=== PATIENT | female | born 1960 | race Caucasian/White ===

== ENCOUNTER 2016-12-20 15:17 | Emergency (ER) | payer OTHER ==
[2016-12-20 15:35] VITALS: BP 128/61; PULSE 70; RESP 17; TEMP 97.8
[2016-12-20] MEDS ORDERED: MUPIROCIN CALCIUM 2% CREAM 15 GM TUBE TOPICAL SCH (16:30)
[2016-12-20] MEDS ORDERED: MUPIROCIN CALCIUM 2% CREAM 15 GM TUBE TOPICAL STA (16:33)
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
== END 2016-12-20 16:55 | disposition home or self-care (01) ==
LOC: EC 15:17
DX: T54.91XA Toxic effect of unspecified corrosive substance, accidental (unintentional), initial encounter (principal); T23.621A Corrosion of second degree of single right finger (nail) except thumb, initial encounter; Z79.890 Hormone replacement therapy; F41.9 Anxiety disorder, unspecified; F17.200 Nicotine dependence, unspecified, uncomplicated
CPT/HCPCS: 16020; 99283

== ENCOUNTER 2025-01-14 03:30 | Inpatient (IN) | payer OTHER ==
--- NOTE | 2025-01-14 04:23 | ED ---
SOB HPI - General Chief Complaint: Shortness of Breath Stated Complaint: Shortness of breath Time Seen by Provider: 01/14/25 03:36 Source: patient, EMS Mode of arrival: EMS - History of Present Illness Initial Comments: This patient is a 64-year-old woman who states that she has been having worsening shortness of breath over the course the last night into this morning. She states that she does have history of lung disease but is not able to state exactly what it is. She does use inhalers at home but states she is not on oxygen. The patient has not noted fever or chills. No chest pain. She states the cough is starting to bring up a little bit of whitish sputum. No change in urination or bowel movements. No leg swelling MD Complaint: shortness of breath, cough Onset/Timin -: days(s) Consistency: constant Improves With: nothing Worsens With: nothing Known History Of: COPD Associated Symptoms: cough, sputum production Treatments Prior to Arrival: none - Related Data Home Oxygen Therapy: No Home Medications Medication Instructions Recorded Confirmed Albuterol Sulfate [Albuterol 2 puff INHALATION RT-Q4H PRN 01/14/25 01/14/25 Sulfate Hfa] Cyanocobalamin [Vitamin B-12] 500 mcg PO DAILY 01/14/25 01/14/25 Glycopyrrolate/Formoterol Fum 2 puff INHALATION RT-BID 01/14/25 01/14/25 [Bevespi Aerosphere Inhaler] Sertraline [Zoloft] 50 mg PO DAILY 01/14/25 01/14/25 methocarbamoL [Robaxin-750] 750 mg PO TID PRN 01/14/25 01/14/25 Gabapentin [Neurontin] 300 mg PO TID 01/17/25 01/17/25 Previous Rx's Medication Instructions Recorded Amiodarone [Cordarone] 200 mg PO DAILY #30 tab 01/21/25 Apixaban [Eliquis] 5 mg PO BID #60 tab 01/21/25 Dapagliflozin Propanediol [Farxiga] 10 mg PO DAILY #30 tab 01/21/25 Metoprolol Tartrate [Lopressor] 25 mg PO BID #60 tab 01/21/25 Nicotine 14Mg/24Hr Patch [Habitrol] 1 patch TRANSDERM DAILY #7 patch 01/21/25 Pantoprazole [Protonix] 40 mg PO DAILY #30 tab 01/21/25 Allergies Allergy/AdvReac Type Severity Reaction Status Date / Time shellfish derived [Shrimp] Allergy Unknown Verified 01/14/25 09:35 Review of Systems ROS Statement: Those systems with pertinent positive or pertinent negative responses have been documented in the HPI. ROS Other: All systems not noted in ROS Statement are negative. Constitutional: Denies: fever, chills Respiratory: Reports: cough, dyspnea, wheezes Cardiovascular: Denies: chest pain, palpitations, edema, syncope Gastrointestinal: Denies: abdominal pain, nausea, vomiting, diarrhea Genitourinary: Denies: dysuria, hematuria Musculoskeletal: Denies: back pain Skin: Denies: rash Neurological: Denies: headache, weakness Past Medical History Past Medical History: Asthma, COPD, GERD/Reflux Additional Past Medical History / Comment(s): ABD PAIN, DIARRHEA. History of Any Multi-Drug Resistant Organisms: None Reported Past Surgical History: Tubal Ligation Additional Past Surgical History / Comment(s): RUPTURED OVARIAN CYST Past Psychological History: Anxiety Past Alcohol Use History: Occasional Past Drug Use History: None Reported General Exam General appearance: alert, in no apparent distress Head exam: Present: atraumatic, normocephalic Eye exam: Present: normal appearance. Absent: scleral icterus, conjunctival injection ENT exam: Present: normal oropharynx Neck exam: Present: normal inspection Respiratory exam: Present: wheezes, decreased breath sounds. Absent: rales, rhonchi, stridor, chest wall tenderness, accessory muscle use Cardiovascular Exam: Present: normal rhythm, tachycardia, normal heart sounds. Absent: systolic murmur, diastolic murmur, rubs, gallop GI/Abdominal exam: Present: soft. Absent: distended, tenderness, guarding, rebound, rigid, mass Extremities exam: Present: normal inspection, normal capillary refill. Absent: pedal edema, calf tenderness Back exam: Present: normal inspection Neurological exam: Present: alert Skin exam: Present: warm, dry, intact, normal color. Absent: rash Course Vital Signs 01/14/25 01/14/25 01/14/25 03:32 05:08 05:35 Temperature 98.1 F Pulse Rate 105 H 103 H 97 Respiratory 24 24 Rate Blood Pressure 153/113 139/101 O2 Sat by Pulse 92 L 92 L Oximetry Fraction of Inspired Oxygen (FIO2) 01/14/25 01/14/25 01/14/25 05:49 06:30 07:31 Temperature Pulse Rate 108 H 115 H 121 H Respiratory 20 21 Rate Blood Pressure 137/86 138/103 O2 Sat by Pulse 91 L 98 Oximetry Fraction of Inspired Oxygen (FIO2) 01/14/25 01/14/25 01/14/25 07:41 07:44 08:52 Temperature Pulse Rate 101 H Respiratory 20 Rate Blood Pressure 108/68 O2 Sat by Pulse 98 Oximetry Fraction of 50 50 Inspired Oxygen (FIO2) 01/14/25 01/14/25 01/14/25 09:03 10:11 10:46 Temperature Pulse Rate 90 91 84 Respiratory 20 22 Rate Blood Pressure 119/77 123/92 O2 Sat by Pulse 96 96 Oximetry Fraction of 50 Inspired Oxygen (FIO2) 01/14/25 01/14/25 01/14/25 11:06 11:17 11:47 Temperature Pulse Rate 84 92 91 Respiratory 21 20 Rate Blood Pressure 115/96 109/84 O2 Sat by Pulse 96 96 Oximetry Fraction of Inspired Oxygen (FIO2) 01/14/25 01/14/25 01/14/25 12:00 13:16 14:02 Temperature 98.1 F Pulse Rate 84 92 93 Respiratory 18 15 18 Rate Blood Pressure 113/70 127/94 103/84 O2 Sat by Pulse 96 98 97 Oximetry Fraction of Inspired Oxygen (FIO2) 01/14/25 01/14/25 01/14/25 14:30 14:40 14:59 Temperature Pulse Rate 91 89 229 H Respiratory Rate Blood Pressure O2 Sat by Pulse Oximetry Fraction of 35 Inspired Oxygen (FIO2) 01/14/25 01/14/25 01/14/25 15:02 15:18 15:36 Temperature Pulse Rate 80 89 91 Respiratory 18 18 18 Rate Blood Pressure 114/77 110/81 119/83 O2 Sat by Pulse 98 97 98 Oximetry Fraction of Inspired Oxygen (FIO2) 01/14/25 01/14/25 01/14/25 16:08 17:00 17:02 Temperature 98.1 F Pulse Rate 89 225 H 101 H Respiratory 22 18 18 Rate Blood Pressure 132/87 132/58 132/58 O2 Sat by Pulse 96 96 Oximetry Fraction of Inspired Oxygen (FIO2) 01/14/25 01/14/25 17:15 17:52 Temperature Pulse Rate 91 Respiratory 20 Rate Blood Pressure 120/73 O2 Sat by Pulse 94 L 94 L Oximetry Fraction of Inspired Oxygen (FIO2) Medical Decision Making - Medical Decision Making Patient is a 64-year-old woman here with dyspnea. There does appear to be multifactorial etiology. The patient did become acutely more dyspneic, more hypertensive, diaphoretic and tachycardic. Respiratory therapist was called to place patient on BiPAP and I pushed some rounds of nitroglycerin as bolus while following patient's blood pressure. In response to treatment, the patient had resolution of the diaphoresis and tachycardia. The patient's hypertension improved. Case discussed with admitting physician. The patient had chest x-ray that I interpreted as showing cardiomegaly with some congestion. There is pleural effusion versus possible infiltrate. Was pt. sent in by a medical professional or institution (ELLI Rasmussen, FRAME SAMPLE AND PATTERN SUPERVISOR, urgent care, hospital, or senior care...) When possible be specific @ -[No] Did you speak to anyone other than the patient for history (EMS, parent, family, police, friend...)? What history was obtained from this source @ -[No] Did you review nursing and triage notes (agree or disagree)? Why? @ -[I reviewed and agree with nursing and triage notes] Were old charts reviewed (outside hosp., previous admission, EMS record, old EKG, old radiological studies, urgent care reports/EKG's, senior care records)? Report findings @ -[No old charts were reviewed] Differential Diagnosis (chest pain, altered mental status, abdominal pain women, abdominal pain men, vaginal bleeding, weakness, fever, dyspnea, syncope, headache, dizziness, GI bleed, back pain, seizure, CVA, palpatations, mental health, musculoskeletal)? @ -[Differential Dyspnea: Coronary syndrome, arrhythmia, tamponade, asthma, COPD, pulmonary embolism, pneumonia, pneumothorax, pulmonary effusion, anaphylaxis, diabetic ketoacidosis, flailed chest, pulmonary contusion, diaphragmatic rupture, anemia, neuromuscular, this is not meant to be an all-inclusive list. EKG interpreted by me (3pts min.). @ -[I interpreted as above] X-rays interpreted by me (1pt min.). @ -I interpreted as above CT interpreted by me (1pt min.). @ -[None done] U/S interpreted by me (1pt. min.). @ -[None done] What testing was considered but not performed or refused? (CT, X-rays, U/S, labs)? Why? @ -[None] What meds were considered but not given or refused? Why? @ -[None] Did you discuss the management of the patient with other professionals (professionals i.e. , PA, FRAME S[employer] AND PATTERN SUPERVISOR, lab, RT, psych nurse, social insurance administrator, tree marker, teacher, senior compliance officer, shoe caser)? Give summary @ -[Case discussed with admitting physician and treatment recommendations incorporated Was smoking cessation discussed for >3mins.? @ -[No] Was critical care preformed (if so, how long)? @ -[Yes, 35 minutes Were there social determinants of health that impacted care today? How? (Homelessness, low income, unemployed, alcoholism, drug addiction, transportation, low edu. Level, literacy, decrease access to med. care, senior care, rehab)? @ -[No] Was there de-escalation of care discussed even if they declined (Discuss DNR or withdrawal of care, Hospice)? DNR status @ -[No] What co-morbidities impacted this encounter? (DM, HTN, Smoking, COPD, CAD, Cancer, CVA, ARF, Chemo, Hep., AIDS, mental health diagnosis, sleep apnea, morbid obesity)? @ -[None] Was patient admitted / discharged? Hospital course, mention meds given and route, prescriptions, significant lab abnormalities, going to OR and other pertinent info. @ -[See the above note Undiagnosed new problem with uncertain prognosis? @ -[No] Drug Therapy requiring intensive monitoring for toxicity (Heparin, Nitro, Insulin, Cardizem)? @ -[IV nitroglycerin Were any procedures done? @ -[No] Diagnosis/symptom? @ -[d acute dyspnea Exacerbation of congestive heart failure Possible pneumonia Acute, or Chronic, or Acute on Chronic? @ -[Acute Uncomplicated (without systemic symptoms) or Complicated (systemic symptoms)? @ -[Complicated by dyspnea Side effects of treatment? @ -[No] Exacerbation, Progression, or Severe Exacerbation? @ -[No] Poses a threat to life or bodily function? How? (Chest pain, [place], [place], pneumonia, PE, COPD, DKA, ARF, appy, cholecystitis, CVA, Diverticulitis, Homicidal, Suicidal, threat to staff... and all critical care pts) @ -[No] All treatments are based on ideal body weight as in ED triage - Lab Data Result diagrams: 01/19/25 07:29 01/21/25 07:51 Lab Results 01/14/25 01/14/25 01/14/25 Range/Units 03:35 03:35 03:35 WBC 10.1 (3.8-10.6) k/uL RBC 3.57 L (3.80-5.40) m/uL Hgb 13.1 (11.4-16.0) gm/dL Hct 42.1 (34.0-46.0) % MCV 117.8 H (80.0-100.0) fL MCH 36.6 H (25.0-35.0) pg MCHC 31.0 (31.0-37.0) g/dL RDW 18.0 H (11.5-15.5) % Plt Count 210 (150-450) k/uL MPV 9.3 Neutrophils % 81 % Lymphocytes % 11 % Monocytes % 6 % Eosinophils % 1 % Basophils % 0 % Neutrophils # 8.2 H (1.3-7.7) k/uL Lymphocytes # 1.1 (1.0-4.8) k/uL Monocytes # 0.6 (0-1.0) k/uL Eosinophils # 0.1 (0-0.7) k/uL Basophils # 0.0 (0-0.2) k/uL Hypochromasia Marked Anisocytosis Slight Macrocytosis Marked A PT 11.3 (10.0-12.5) sec INR 1.0 (<1.2) APTT 21.5 L (22.0-30.0) sec Sodium 138 (137-145) mmol/L Potassium 3.5 (3.5-5.1) mmol/L Chloride 106 (98-107) mmol/L Carbon Dioxide 21 L (22-30) mmol/L Anion Gap 11 mmol/L BUN 9 (7-17) mg/dL Creatinine 0.58 (0.52-1.04) mg/dL Est GFR (CKD-EPI)AfAm >90 (>60 ml/min/1.73 sqM) Est GFR (CKD-EPI)NonAf >90 (>60 ml/min/1.73 sqM) Glucose 126 H (74-99) mg/dL Plasma Lactic Acid Lalito (0.7-2.0) mmol/L Calcium 8.9 (8.4-10.2) mg/dL Total Bilirubin 0.9 (0.2-1.3) mg/dL AST 87 H (14-36) U/L ALT 53 H (4-34) U/L Alkaline Phosphatase 240 H (38-126) U/L Troponin I (0.000-0.034) ng/mL NT-Pro-B Natriuret Pep 2600 pg/mL Total Protein 6.4 (6.3-8.2) g/dL Albumin 3.6 (3.5-5.0) g/dL Procalcitonin (0.02-0.50) ng/mL Influenza Type A (PCR) (Not Detectd) Influenza Type B (PCR) (Not Detectd) RSV (PCR) (Not Detectd) SARS-CoV-2 (PCR) (Not Detectd) 01/14/25 01/14/25 01/14/25 Range/Units 03:35 03:35 03:35 WBC (3.8-10.6) k/uL RBC (3.80-5.40) m/uL Hgb (11.4-16.0) gm/dL Hct (34.0-46.0) % MCV (80.0-100.0) fL MCH (25.0-35.0) pg MCHC (31.0-37.0) g/dL RDW (11.5-15.5) % Plt Count (150-450) k/uL MPV Neutrophils % % Lymphocytes % % Monocytes % % Eosinophils % % Basophils % % Neutrophils # (1.3-7.7) k/uL Lymphocytes # (1.0-4.8) k/uL Monocytes # (0-1.0) k/uL Eosinophils # (0-0.7) k/uL Basophils # (0-0.2) k/uL Hypochromasia Anisocytosis Macrocytosis PT (10.0-12.5) sec INR (<1.2) APTT (22.0-30.0) sec Sodium (137-145) mmol/L Potassium (3.5-5.1) mmol/L Chloride (98-107) mmol/L Carbon Dioxide (22-30) mmol/L Anion Gap mmol/L BUN (7-17) mg/dL Creatinine (0.52-1.04) mg/dL Est GFR (CKD-EPI)AfAm (>60 ml/min/1.73 sqM) Est GFR (CKD-EPI)NonAf (>60 ml/min/1.73 sqM) Glucose (74-99) mg/dL Plasma Lactic Acid Lalito 2.0 (0.7-2.0) mmol/L Calcium (8.4-10.2) mg/dL Total Bilirubin (0.2-1.3) mg/dL AST (14-36) U/L ALT (4-34) U/L Alkaline Phosphatase (38-126) U/L Troponin I 0.020 (0.000-0.034) ng/mL NT-Pro-B Natriuret Pep pg/mL Total Protein (6.3-8.2) g/dL Albumin (3.5-5.0) g/dL Procalcitonin (0.02-0.50) ng/mL Influenza Type A (PCR) Not Detected (Not Detectd) Influenza Type B (PCR) Not Detected (Not Detectd) RSV (PCR) Not Detected (Not Detectd) SARS-CoV-2 (PCR) Not Detected (Not Detectd) 01/14/25 Range/Units 06:30 WBC (3.8-10.6) k/uL RBC (3.80-5.40) m/uL Hgb (11.4-16.0) gm/dL Hct (34.0-46.0) % MCV (80.0-100.0) fL MCH (25.0-35.0) pg MCHC (31.0-37.0) g/dL RDW (11.5-15.5) % Plt Count (150-450) k/uL MPV Neutrophils % % Lymphocytes % % Monocytes % % Eosinophils % % Basophils % % Neutrophils # (1.3-7.7) k/uL Lymphocytes # (1.0-4.8) k/uL Monocytes # (0-1.0) k/uL Eosinophils # (0-0.7) k/uL Basophils # (0-0.2) k/uL Hypochromasia Anisocytosis Macrocytosis PT (10.0-12.5) sec INR (<1.2) APTT (22.0-30.0) sec Sodium (137-145) mmol/L Potassium (3.5-5.1) mmol/L Chloride (98-107) mmol/L Carbon Dioxide (22-30) mmol/L Anion Gap mmol/L BUN (7-17) mg/dL Creatinine (0.52-1.04) mg/dL Est GFR (CKD-EPI)AfAm (>60 ml/min/1.73 sqM) Est GFR (CKD-EPI)NonAf (>60 ml/min/1.73 sqM) Glucose (74-99) mg/dL Plasma Lactic Acid Lalito (0.7-2.0) mmol/L Calcium (8.4-10.2) mg/dL Total Bilirubin (0.2-1.3) mg/dL AST (14-36) U/L ALT (4-34) U/L Alkaline Phosphatase (38-126) U/L Troponin I (0.000-0.034) ng/mL NT-Pro-B Natriuret Pep pg/mL Total Protein (6.3-8.2) g/dL Albumin (3.5-5.0) g/dL Procalcitonin 0.07 (0.02-0.50) ng/mL Influenza Type A (PCR) (Not Detectd) Influenza Type B (PCR) (Not Detectd) RSV (PCR) (Not Detectd) SARS-CoV-2 (PCR) (Not Detectd) - EKG Data -: EKG Interpreted by Nm EKG shows normal: sinus rhythm Rate: tachycardia (107 bpm) Disposition Clinical Impression: CHF (congestive heart failure), Elevated troponin Narrative: Possible pneumonia Disposition: ADMITTED IP TO THIS HOSP Condition: Fair Is patient prescribed a controlled substance at d/c from ED?: No
[2025-01-14 04:42] LABS: Anisocytosis Slight; Basophils % (A) 0 %; Eosinophils # (A) 0.1 k/uL (0-0.7); Eosinophils % (A) 1 %; HCT 42.1 % (34.0-46.0); HGB 13.1 gm/dL (11.4-16.0); Hypochromasia Marked; Lymphocytes # (A) 1.1 k/uL (1.0-4.8); Lymphocytes % (A) 11 %; MCH 36.6 pg (25.0-35.0); Macrocytosis Marked; Mean Platelet Volume 9.3; Monocytes # (A) 0.6 k/uL (0-1.0); Monocytes % (A) 6 %; Neutrophils # (A) 8.2 k/uL (1.3-7.7); Neutrophils % (A) 81 %; Platelet Count 210 k/uL (150-450); RBC 3.57 m/uL (3.80-5.40); WBC 10.1 k/uL (3.8-10.6)
[2025-01-14 04:43] LABS: ALT 53 U/L (4-34); AST 87 U/L (14-36); African American GFR (CKD) >90 (>60 ml/min/1.73 sqM); Albumin 3.6 g/dL (3.5-5.0); Alkaline Phosphatase 240 U/L (38-126); Anion Gap 11 mmol/L; Blood Urea Nitrogen 9 mg/dL (7-17); Calcium 8.9 mg/dL (8.4-10.2); Carbon Dioxide 21 mmol/L (22-30); Chloride 106 mmol/L (98-107); Glucose 126 mg/dL (74-99); Non-African American GFR(CKD) >90 (>60 ml/min/1.73 sqM); Potassium 3.5 mmol/L (3.5-5.1); Sodium 138 mmol/L (137-145); Total Bilirubin 0.9 mg/dL (0.2-1.3); Total Protein 6.4 g/dL (6.3-8.2)
--- NOTE | 2025-01-14 04:45 | XR ---
EXAM: XR Chest, 1 View CLINICAL HISTORY: ITS.REASON XR Reason: difficulty breathing TECHNIQUE: Frontal view of the chest. COMPARISON: No relevant prior studies available. FINDINGS: Lungs: Opacification of the bilateral lung bases. Hyperinflation of the lungs. Chronic lung markings are seen bilaterally. Pleural space: Bilateral pleural effusions. No pneumothorax. Heart: Mild enlargement of the cardiac silhouette. Mediastinum: Unremarkable. Normal mediastinal contour. Bones/joints: Degenerative changes are seen within the spine and shoulders. No acute fracture. Upper abdomen: The liver lesions overlie the aorta. IMPRESSION: Bilateral pleural effusions with adjacent atelectasis and/or pneumonia not excluded.
[2025-01-14 04:52] LABS: NT-Pro-B-Type Natriuretic Pept 2600 pg/mL
[2025-01-14 04:53] LABS: Partial Thromboplastin Time 21.5 sec (22.0-30.0); Prothrombin Time 11.3 sec (10.0-12.5)
[2025-01-14] MEDS: predniSONE 20 MG TAB PO STA (05:03)
[2025-01-14] MEDS: NITROGLYCERIN-D5W PMX 50 MG in DEXTROSE/WATER 1 250ML.BAG IV ONE (05:04)
[2025-01-14 05:08] LABS: MCV 117.8 fL (80.0-100.0)
[2025-01-14 05:11] LABS: Influenza A Not Detected (Not Detectd); Influenza B Not Detected (Not Detectd); RSV Not Detected (Not Detectd)
[2025-01-14] MEDS: IPRATROPIUM-ALBUTEROL 3 ML NEB INHALATION STA (05:34)
[2025-01-14] MEDS: ALBUTEROL NEBULIZED 2.5 MG/3 ML INHALATION STA (05:35)
[2025-01-14] MEDS: AZITHROMYCIN 500 MG TAB PO STA (06:24)
[2025-01-14] MEDS: MORPHINE SULFATE 4 MG/ML SYRINGE IVP STA (07:21)
[2025-01-14] MEDS: MORPHINE SULFATE 4 MG/ML SYRINGE IV STA (07:30)
[2025-01-14] MEDS: FUROSEMIDE 10 MG/ML 4 ML VIAL IV SCH (08:56)
[2025-01-14] MEDS: LORazepam 0.5 MG TAB PO SCH (08:56)
[2025-01-14] MEDS: SODIUM CHLORIDE 0.9% 1,000 ML IV SCH (08:57)
--- NOTE | 2025-01-14 10:35 | CA ---
Transthoracic Echo Report Name: Bia Delgadillo Age: 64 Gender: F : 1960 Exam Date: 01/14/2025 08:11 Exam Location: [facility] Ht (in): 63 Wt (lb): 143 Ordering Physician: Marcus Beyer MD Attending/Referring Phys: Neonatal Pediatric Nurse Letha Esquivel RDCS Procedure CPT: Indications: hypertensive emergency Cardiac Hx: COPD Technical Quality: Fair Contrast 1: Definity Total Dose (mL): 2 Contrast 2: Total Dose (mL): MEASUREMENTS (Male / Female) Normal Values 2D ECHO LV Diastolic Diameter PLAX 4.7 cm 4.2 - 5.9 / 3.9 - 5.3 cm LV Systolic Diameter PLAX 4.1 cm IVS Diastolic Thickness 1.0 cm 0.6 - 1.0 / 0.6 - 0.9 cm LVPW Diastolic Thickness 1.0 cm 0.6 - 1.0 / 0.6 - 0.9 cm LV Relative Wall Thickness 0.4 RV Internal Dim ED PLAX 1.8 cm LVOT Diameter 1.8 cm LA Systolic Diameter LX 4.2 cm 3.0 - 4.0 / 2.7 - 3.8 cm LV Diastolic Volume MOD BP 67.8 cm??? 67 - 155 / 56 - 104 cm??? LV Systolic Volume MOD BP 39.8 cm??? / 19 - 49 cm??? LV Ejection Fraction MOD BP 41.4 % >= 55 % LV Cardiac Index MOD BP 1477.9 cm???/min???m??? LV Diastolic Volume MOD 4C 68.7 cm??? LV Systolic Volume MOD 4C 46.8 cm??? LV Ejection Fraction MOD 4C 31.9 % LV Cardiac Index MOD 4C 1153.9 cm???/min???m??? LV Diastolic Length 4C 7.7 cm LV Systolic Length 4C 6.6 cm LV Diastolic Volume MOD 2C 66.4 cm??? LV Systolic Volume MOD 2C 33.9 cm??? LV Ejection Fraction MOD 2C 49.0 % LV Cardiac Index MOD 2C 1713.7 cm???/min???m??? LV Diastolic Length 2C 7.8 cm LV Systolic Length 2C 7.0 cm LA Volume 57.5 cm??? - / 22 - 52 cm??? LA Volume Index 33.6 cm???/m??? 16 - 28 cm???/m??? M-MODE Aortic Root Diameter MM 3.0 cm LA Systolic Diameter MM 4.0 cm LA Ao Ratio MM 1.3 AV Cusp Separation MM 1.5 cm DOPPLER AV Peak Velocity 137.2 cm/s AV Peak Gradient 7.5 mmHg AV Mean Velocity 93.9 cm/s AV Mean Gradient 4.1 mmHg AV Velocity Time Integral 26.4 cm AI Peak Velocity 436.9 cm/s AI Peak Gradient 76.4 mmHg AI Pressure Half Time 567.6 ms LVOT Peak Velocity 96.8 cm/s LVOT Peak Gradient 3.7 mmHg LVOT Velocity Time Integral 17.6 cm LVOT Stroke Volume 45.5 cm??? LVOT Stroke Volume Index 27.1 ml/m??? LVOT Cardiac Index 2392.5 cm???/min???m??? AV Area Cont Eq vti 1.7 cm??? AV Area Cont Eq pk 1.8 cm??? MV Area PHT 4.5 cm??? Mitral E Point Velocity 89.6 cm/s Mitral A Point Velocity 81.7 cm/s Mitral E to A Ratio 1.1 MV Deceleration Time 169.0 ms TR Peak Velocity 251.7 cm/s TR Peak Gradient 25.3 mmHg Right Atrial Pressure 20.0 mmHg Pulmonary Artery Systolic Pressu 45.3 mmHg Right Ventricular Systolic Press 45.3 mmHg FINDINGS Left Ventricle Left ventricular ejection fraction is estimated at 30-35%. Mildly increased septal wall thickness. Moderately decreased left ventricular ejection fraction. Akinetic septum. Right Ventricle Mild right ventricular dilatation. Moderate pulmonary hypertension. Right Atrium Mild right atrial dilatation. Left Atrium Mildly increased left atrial diameter. Mildly increased left atrial volume. Mitral Valve Structurally normal mitral valve. [id number]-mo-nmehzc mitral regurgitation. No mitral stenosis. Aortic Valve Trileaflet aortic valve. Moderate aortic regurgitation. No aortic stenosis. Tricuspid Valve Structurally normal tricuspid valve. Mild tricuspid regurgitation. No tricuspid stenosis. Pulmonic Valve Structurally normal pulmonic valve. No pulmonic stenosis. Trace pulmonic regurgitation. Pericardium No pericardial or pleural effusion. Aorta Normal size aortic root and proximal ascending aorta. CONCLUSIONS Left ventricular ejection fraction is estimated at 30-35%. Akinetic septum. Mildly increased septal wall thickness. Mild biatrial dilatation [id number] mitral regurgitation. Moderate aortic regurgitation. Previewed by: Dr Cm Thompson (Electronically Signed) Final Date: 14 January 2025 10:35
[2025-01-14] MEDS: ALBUTEROL NEBULIZED 2.5 MG/3 ML INHALATION SCH (10:45)
[2025-01-14] MEDS ORDERED: methocarbamoL 750 MG TAB PO PRN (12:26)
[2025-01-14] MEDS ORDERED: IPRATROPIUM-ALBUTEROL 3 ML NEB INHALATION PRN (14:30)
--- NOTE | 2025-01-14 14:33 | P.CNPUL ---
History of Present Illness Consult date: 01/14/25 Requesting physician: Davi E Marcy Reason for consult: dyspnea, COPD, hypoxemia, abnormal CXR/CT Chief complaint: Shortness of breath, cough, congestion History of present illness: This is a 64-year-old female patient with a known history of chronic obstructive pulmonary disease, chronic and ongoing tobacco dependence, hypertension, depression, occasional alcohol use who presented here early this morning after a 2 to 3-day history of increasing shortness of breath. Productive cough with wh ite sputum. No fever or chills. She was found to be quite hypoxemic and placed on BiPAP 14/5 and 50% FiO2. Chest x-ray reveals bilateral pleural effusions with increased lung markings and evidence of chronic lung disease. She was also very hypertensive with presenting blood pressure of 153/113. White count 10.1. Hemoglobin 13.1. Platelets 210. Sodium 138. Potassium 3.5. Bicarb 21. BUN 9 . Creatinine 0.58. Glucose 126. proBNP 2600. AST 87. ALT 53. Alk phos 240. Viral screen negative. She is seen today in consultation in the emergency department. She remains on BiPAP. She is awake and alert. She is feeling a bit better since she came in. She is started on a nitroglycerin drip at 20 mcg/min. Blood pressure improving. She denies any previous cardiac disease. EKG reveals sinus tachycardia with no significant ST or T wave abnormalities. Echocardiogram reveals severely impaired left ventricular systolic function with an ejection fraction of 30 to 35%. Akinetic septum. Moderate to severe mitral regurgitation. Moderate aortic regurgitation. Review of Systems REVIEW OF SYSTEMS: CONSTITUTIONAL: Denies any recent significant weight loss or weight gain. EYES: Denies change in vision. EARS, NOSE, MOUTH, THROAT: Denies headaches, denies sore throat. CARDIOVASCULAR: Denies chest pain, palpitations or syncopal episodes. RESPIRATORY: Positive for shortness of breath, cough, congestion no hemoptysis. GASTROINTESTINAL: Denies change in appetite, denies abdominal pain GENITOURINARY: Denies hematuria, denies infections. MUSKULOSKELETAL: Denies pain, denies swelling. INTEGUMENTARY: Denies rash, denies eczema. NEUROLOGICAL: Denies recent memory loss, no recent seizure activity. PSYCHIATRIC: Denies anxiety, denies depression. HEMATOLOGIC/LYMPHATIC: Denies anemia, denies enlarged lymph nodes. Past Medical History Past Medical History: Asthma, COPD, GERD/Reflux Additional Past Medical History / Comment(s): ABD PAIN, DIARRHEA. History of Any Multi-Drug Resistant Organisms: None Reported Past Surgical History: Tubal Ligation Additional Past Surgical History / Comment(s): RUPTURED OVARIAN CYST Past Psychological History: Anxiety Past Alcohol Use History: Occasional Past Drug Use History: None Reported Medications and Allergies Home Medications Medication Instructions Recorded Confirmed Type Albuterol Sulfate [Albuterol 2 puff INHALATION RT-Q4H PRN 01/14/25 01/14/25 History Sulfate Hfa] Cyanocobalamin [Vitamin B-12] 500 mcg PO DAILY 01/14/25 01/14/25 History Glycopyrrolate/Formoterol Fum 2 puff INHALATION RT-BID 01/14/25 01/14/25 History [Bevespi Aerosphere Inhaler] Sertraline [Zoloft] 50 mg PO DAILY 01/14/25 01/14/25 History amLODIPine [Norvasc] 5 mg PO DAILY 01/14/25 01/14/25 History lisinopriL [Zestril] 20 mg PO DAILY 01/14/25 01/14/25 History methocarbamoL [Robaxin-750] 750 mg PO TID PRN 01/14/25 01/14/25 History Allergies Allergy/AdvReac Type Severity Reaction Status Date / Time shellfish derived [Shrimp] Allergy Unknown Verified 01/14/25 09:35 Physical Exam Vitals: Vital Signs Temp Pulse Resp BP Pulse Ox FiO2 01/14/25 14:02 98.1 F 93 18 103/84 97 01/14/25 13:16 92 15 127/94 98 01/14/25 12:00 84 18 113/70 96 01/14/25 11:47 91 20 109/84 96 01/14/25 11:17 92 21 115/96 96 01/14/25 11:06 84 01/14/25 10:46 84 50 01/14/25 10:11 91 22 123/92 96 01/14/25 09:03 90 20 119/77 96 01/14/25 08:52 101 H 20 108/68 98 01/14/25 07:44 50 01/14/25 07:41 50 01/14/25 07:31 121 H 21 138/103 98 01/14/25 06:30 115 H 20 137/86 91 L 01/14/25 05:49 108 H 01/14/25 05:35 97 01/14/25 05:08 103 H 24 139/101 92 L 01/14/25 03:32 98.1 F 105 H 24 153/113 92 L Intake and Output 01/13/25 01/14/25 01/14/25 22:59 06:59 14:59 Intake Total 1.275 Balance 1.275 Intake: Intake, IV Titration 1.275 Amount Nitroglycerin-D5w Pmx 50 1.275 mg In Dextrose/Water 1 250ml.bag @ 5 MCG/MIN 1.5 mls/hr IV .Q24H ONE Rx#: [id number] Other: Weight 64.864 kg GENERAL EXAM: Alert, 64-year-old female, currently on BiPAP 14/5 and 50% FiO2, fairly comfortable in no apparent distress. HEAD: Normocephalic. EYES: Normal reaction of pupils, equal size. NOSE: Clear with pink turbinates. THROAT: No erythema or exudates. NECK: No masses, no JVD. CHEST: No chest wall deformity. LUNGS: Equal air entry with crackles in the bilateral bases. CVS: S1 and S2 normal with an audible murmur, regular rhythm. ABDOMEN: No hepatosplenomegaly, normal bowel sounds, no guarding or rigidity. SPINE: No scoliosis or deformity SKIN: No rashes CENTRAL NERVOUS SYSTEM: No focal deficits, tone is normal in all 4 extremities. EXTREMITIES: There is trace peripheral edema. No clubbing, no cyanosis. Peripheral pulses are intact. Results - Laboratory Findings CBC and BMP: 01/14/25 03:35 01/14/25 03:35 PT/INR, D-dimer PT 11.3 sec (10.0-12.5) 01/14/25 03:35 INR 1.0 (<1.2) 01/14/25 03:35 Abnormal lab findings: Abnormal Labs 01/14/25 01/14/25 01/14/25 03:35 03:35 03:35 RBC 3.57 L MCV 117.8 H MCH 36.6 H RDW 18.0 H Neutrophils # 8.2 H Macrocytosis Marked A APTT 21.5 L Carbon Dioxide 21 L Glucose 126 H AST 87 H ALT 53 H Alkaline Phosphatase 240 H - Diagnostic Findings Chest x-ray: image reviewed Assessment and Plan Assessment: Acute hypoxemic respiratory failure secondary to an acute exacerbation of systolic congestive heart failure, COPD exacerbation, valvular heart disease Acute exacerbation of chronic obstructive pulmonary disease Hypertensive urgency, currently on nitroglycerin drip at 20 mcg/min Ischemic versus nonischemic cardiomyopathy with an ejection fraction of 30 to 35% Moderate to severe mitral regurgitation Moderate aortic regurgitation Chronic and ongoing tobacco dependence of 40 years History of hypertension History of depression History of chronic back pain Plan: The patient was seen and evaluated Chest x-ray, labs and medications reviewed Echocardiogram and EKG reviewed Currently on nitroglycerin drip at 20 mcg/min Receiving Lasix 40 mg IV every 12 hours Add DuoNeb inhalations 4 times daily and as needed Add Pulmicort and Perforomist inhalations twice daily Educated regarding the importance of smoking cessation NicoDerm patch will be offered Currently on BiPAP 14/5 and 50% FiO2 Titrate down the FiO2 as tolerated Transition to nasal cannula as tolerated We will continue to follow and make further recommendations based on her clinical status I have personally seen and examined the patient, performed the documentation and the assessment and plan as written. Number of minutes spent on the visit: 20 Dictation was produced using [employer] dictation software. Please excuse any grammatical, word or spelling errors.
[2025-01-14 17:04] LABS: Glucose,Whole Blood 126 mg/dL (70-110)
[2025-01-14] MEDS ORDERED: DEXTROSE 5% IN WATER 50 ML BAG ONE (17:05)
[2025-01-14] MEDS ORDERED: AMIODARONE 50 MG/ML 3 ML VIAL IV ONE (17:05)
[2025-01-14] MEDS: DEXTROSE 5% IN WATER 100 ML with AMIODARONE 150 MG IV ONE (17:05)
--- NOTE | 2025-01-14 17:35 | XR ---
EXAMINATION TYPE: XR chest 1V portable DATE OF EXAM: 01/14/2025 5:30 PM COMPARISON: Chest radiographs from 01/14/2025 TECHNIQUE: XR chest 1V portable Portable AP radiograph of the chest. CLINICAL INDICATION:Female, 64 years old with history of Resp distress; FINDINGS: Lungs/Pleura: No pneumothorax. Blunting of the right costophrenic angle. Similar scattered airspace o pacities throughout the lungs. Most prominent within the right lower lung. Heart/mediastinum: Cardiomediastinal silhouette is prominent in size. Musculoskeletal: No acute osseous pathology. IMPRESSION: 1. Overall similar examination with scattered airspace opacities concerning for pneumonia. 2. Small right pleural effusion. [facility], , 01/14/2025 5:33 PM
[2025-01-14 17:38] LABS: Anisocytosis Slight; Basophils % (A) 0 %; Eosinophils # (A) 0.1 k/uL (0-0.7); Eosinophils % (A) 1 %; HCT 41.8 % (34.0-46.0); HGB 12.8 gm/dL (11.4-16.0); Hypochromasia Marked; Lymphocytes # (A) 0.9 k/uL (1.0-4.8); Lymphocytes % (A) 8 %; MCH 36.5 pg (25.0-35.0); MCHC 30.7 g/dL (31.0-37.0); MCV 118.9 fL (80.0-100.0); Macrocytosis Marked; Mean Platelet Volume 9.2; Monocytes # (A) 0.4 k/uL (0-1.0); Monocytes % (A) 4 %; Neutrophils # (A) 9.6 k/uL (1.3-7.7); Neutrophils % (A) 87 %; Platelet Count 171 k/uL (150-450); RBC 3.51 m/uL (3.80-5.40); RDW 18.1 % (11.5-15.5); WBC 11.1 k/uL (3.8-10.6)
[2025-01-14 17:52] LABS: African American GFR (CKD) >90 (>60 ml/min/1.73 sqM); Anion Gap 11 mmol/L; Blood Urea Nitrogen 7 mg/dL (7-17); Calcium 8.6 mg/dL (8.4-10.2); Carbon Dioxide 28 mmol/L (22-30); Chloride 100 mmol/L (98-107); Glucose 153 mg/dL (74-99); Magnesium 1.7 mg/dL (1.6-2.3); Non-African American GFR(CKD) >90 (>60 ml/min/1.73 sqM); Potassium 3.5 mmol/L (3.5-5.1); Sodium 139 mmol/L (137-145)
[2025-01-14] MEDS: IPRATROPIUM-ALBUTEROL 3 ML NEB INHALATION SCH (18:11)
[2025-01-14 18:18] LABS: Glucose,Whole Blood 147 mg/dL (70-110)
[2025-01-14] MEDS: AMIODARONE 360 MG in DEXTROSE 5% IN WATER 200 ML IV ONE (18:24)
[2025-01-14] MEDS ORDERED: Potassium Replacement Protocol 1 EACH MISC MISCELLANE PRN (18:25)
[2025-01-14] MEDS ORDERED: Magnesium Replacement Protocol 1 EACH MISC MISCELLANE PRN (18:27)
[2025-01-14] MEDS: POTASSIUM BICARBONATE/CIT AC 20 MEQ TABLET.EFF NG-TUBE SCH (18:51)
[2025-01-14] MEDS: MAGNESIUM SULFATE-D5W PMX 1 GM in DEXTROSE/WATER 1 100ML.BAG IVPB ONE (18:51)
--- NOTE | 2025-01-14 19:31 | P.HPIM ---
History of Present Illness H&P Date: 01/14/25 This is a 64-year-old female medical history significant for asthma, COPD, acid reflux, anxiety, chronic nicotine use. Patient has been to the hospital with complaints of shortness of breath over the last 24 hours states that she is unable to catch her breath. Patient is evaluated in the ER currently on BiPAP. she is currently denying any chest discomfort states that she has not been having any fever or chills denies any nausea vomiting or diarrhea. Patient does admit to smoking 1 pack of cigarettes per day for the last 40 years. Occasional alcohol use. On admission white blood cell count is 10.1, hemoglobin of 13.1, sodium 138, BUN is 9 creatinine 0.58 glucose of 126, AST 87, ALT of 53 alk phos of 240. Her troponin level was initially found to be negative at 0.020, with mildly elevated proBNP of 2600. Patient's viral panel was negative for influenza, RSV, COVID. Chest x-ray completed in the ER reveals bilateral pleural effusions with adjacent atelectasis and pneumonia not excluded. There is hyperinflation of the lungs. Patient admitted to the hospital with a consult placed to pulmonology for the acute COPD exacerbation. She is currently on BiPAP settings of 14/5 with 50% FiO2 during my evaluation. States that she does not follow with a box loader. Patient has not admit to history of COPD however is on a combination inhaler on an outpatient basis. Patient reports no prior history of congestive heart failure does not history of high blood pressure. Her echocardiogram comes back revealing ejection fraction of 40 to 45% with moderate pulmonary hypertension. Akinetic septum. Moderate to severe mitral regurgitation and moderate aortic regurgitation. Because of these findings cardiology was consulted due to the new cardiomyopathy. Patient appears to be volume overload state was started on IV Lasix 40 mg every 12 hours while in the ER. She also was started on a nitroglycerin drip after receiving nitroglycerin as a bolus by the ER physician secondary to dyspnea hypertension diaphoresis and tachycardia. She appears to be resting comfortably at the time of my evaluation. Is currently pending a bed on the medical floor. REVIEW OF SYSTEMS: CONSTITUTIONAL: No fever, no malaise, no fatigue. HEENT: No recent visual problems or hearing problems. Denied any sore throat. CARDIOVASCULAR: No chest pain, orthopnea, PND, no palpitations, no syncope. PULMONARY: Reports shortness of breath, no cough, no hemoptysis. GASTROINTESTINAL: No diarrhea, no nausea, no vomiting, no abdominal pain. NEUROLOGICAL: No headaches, no weakness, no numbness. HEMATOLOGICAL: Denies any bleeding or petechiae. GENITOURINARY: Denies any burning micturition, frequency, or urgency. MUSCULOSKELETAL/RHEUMATOLOGICAL: Denies any joint pain, swelling, or any muscle pain. ENDOCRINE: Denies any polyuria or polydipsia. The rest of the 14-point review of systems is negative. PHYSICAL EXAMINATION: GENERAL: The patient is alert and oriented x3, not in any acute distress. Well developed, well nourished. Currently on BiPAP HEENT: Pupils are round and equally reacting to light. EOMI. No scleral icterus. No conjunctival pallor. Normocephalic, atraumatic. No pharyngeal erythema. No thyromegaly. CARDIOVASCULAR: S1 and S2 present. No murmurs, rubs, or gallops. PULMONARY: Faint scattered wheezing ABDOMEN: Soft, nontender, nondistended, normoactive bowel sounds. No palpable organomegaly. MUSCULOSKELETAL: No joint swelling or deformity. EXTREMITIES: No cyanosis, clubbing, or pedal edema. NEUROLOGICAL: Gross neurological examination did not reveal any focal deficits. SKIN: No rashes. 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; with an ejection fraction found to be 30 to 35% moderate pulmonary hypertension, moderate history of breast regurgitation and moderate aortic regurgitation Troponin elevation unable to rule out acute coronary syndrome cardiology has been consulted for evaluation Tachycardia and hypertension with urgency responded to nitroglycerin History of hypertension History of COPD with mild acute exacerbation History of asthma Gastroesophageal reflux disease History of anxiety Chronic and ongoing nicotine use patient is a 1 pack per day smoker transaminitis likely due to volume overload state GI prophylaxis DVT prophylaxis Plan Patients vitals currently stable and would recommend to continue the IV nitroglycerin and pending evaluation by escort patients Continue IV lasix 40 mg Q12 hour and strict intake and output monitoring Continue updrafts QID Procalcitonin level pending Pulmonary consultation Consult cardiology Monitor electrolytes and renal function The impression and plan of care has been dictated by Kaye Grant, Nurse Practitioner as directed. Dr. Pascual MD I have performed a history and physical examination and medical decision making of this patient, discussed the same with the dictator, and agree with the dictators assessment and plan as written, documented as a scribe. Based on total visit time, I have performed more than 50% of this visit. Past Medical History Past Medical History: Asthma, COPD, GERD/Reflux Additional Past Medical History / Comment(s): ABD PAIN, DIARRHEA. History of Any Multi-Drug Resistant Organisms: None Reported Past Surgical History: Tubal Ligation Additional Past Surgical History / Comment(s): RUPTURED OVARIAN CYST Past Psychological History: Anxiety Past Alcohol Use History: Occasional Past Drug Use History: None Reported Medications and Allergies Home Medications Medication Instructions Recorded Confirmed Type Albuterol Sulfate [Albuterol 2 puff INHALATION RT-Q4H PRN 01/14/25 01/14/25 History Sulfate Hfa] Cyanocobalamin [Vitamin B-12] 500 mcg PO DAILY 01/14/25 01/14/25 History Glycopyrrolate/Formoterol Fum 2 puff INHALATION RT-BID 01/14/25 01/14/25 History [Bevespi Aerosphere Inhaler] Sertraline [Zoloft] 50 mg PO DAILY 01/14/25 01/14/25 History amLODIPine [Norvasc] 5 mg PO DAILY 01/14/25 01/14/25 History lisinopriL [Zestril] 20 mg PO DAILY 01/14/25 01/14/25 History methocarbamoL [Robaxin-750] 750 mg PO TID PRN 01/14/25 01/14/25 History Allergies Allergy/AdvReac Type Severity Reaction Status Date / Time shellfish derived [Shrimp] Allergy Unknown Verified 01/14/25 09:35 Physical Exam Vitals: Vital Signs Temp Pulse Resp BP Pulse Ox FiO2 01/14/25 14:02 98.1 F 93 18 103/84 97 01/14/25 13:16 92 15 127/94 98 01/14/25 12:00 84 18 113/70 96 01/14/25 11:47 91 20 109/84 96 01/14/25 11:17 92 21 115/96 96 01/14/25 11:06 84 01/14/25 10:46 84 50 01/14/25 10:11 91 22 123/92 96 01/14/25 09:03 90 20 119/77 96 01/14/25 08:52 101 H 20 108/68 98 01/14/25 07:44 50 01/14/25 07:41 50 01/14/25 07:31 121 H 21 138/103 98 01/14/25 06:30 115 H 20 137/86 91 L 01/14/25 05:49 108 H 01/14/25 05:35 97 01/14/25 05:08 103 H 24 139/101 92 L 01/14/25 03:32 98.1 F 105 H 24 153/113 92 L Intake and Output 01/13/25 01/14/25 01/14/25 22:59 06:59 14:59 Intake Total 1.275 Balance 1.275 Intake: Intake, IV Titration 1.275 Amount Nitroglycerin-D5w Pmx 50 1.275 mg In Dextrose/Water 1 250ml.bag @ 5 MCG/MIN 1.5 mls/hr IV .Q24H ONE Rx#: [id number] Other: Weight 64.864 kg Results CBC & Chem 7: 01/14/25 17:06 01/14/25 17:06 Labs: Abnormal Lab Results - Last 24 Hours (Table) 01/14/25 01/14/25 01/14/25 Range/Units 03:35 03:35 03:35 RBC 3.57 L (3.80-5.40) m/uL MCV 117.8 H (80.0-100.0) fL MCH 36.6 H (25.0-35.0) pg RDW 18.0 H (11.5-15.5) % Neutrophils # 8.2 H (1.3-7.7) k/uL Macrocytosis Marked A APTT 21.5 L (22.0-30.0) sec Carbon Dioxide 21 L (22-30) mmol/L Glucose 126 H (74-99) mg/dL AST 87 H (14-36) U/L ALT 53 H (4-34) U/L Alkaline Phosphatase 240 H (38-126) U/L Assessment and Plan Time with Patient: Greater than 30
[2025-01-14 19:37] LABS: Large Platelets Present; Polychromasia Present
[2025-01-14] MEDS: BUDESONIDE 1 MG/2 ML NEBU INHALATION SCH (20:23)
[2025-01-14] MEDS: FORMOTEROL FUMARATE 20 MCG/2 ML NEBU INHALATION SCH (20:23)
[2025-01-14] MEDS: AMIODARONE 450 MG in DEXTROSE 5% IN WATER 250 ML IV SCH (23:48)
[2025-01-15 06:01] LABS: Anisocytosis Slight; Basophils % (A) 0 %; Eosinophils # (A) 0.1 k/uL (0-0.7); Eosinophils % (A) 1 %; HCT 40.1 % (34.0-46.0); Hypochromasia Marked; Lymphocytes # (A) 1.4 k/uL (1.0-4.8); Lymphocytes % (A) 13 %; MCH 35.6 pg (25.0-35.0); MCV 118.7 fL (80.0-100.0); Mean Platelet Volume 9.6; Monocytes # (A) 0.8 k/uL (0-1.0); Monocytes % (A) 7 %; Neutrophils # (A) 8.2 k/uL (1.3-7.7); Neutrophils % (A) 77 %; Platelet Count 175 k/uL (150-450); RBC 3.38 m/uL (3.80-5.40); RDW 18.2 % (11.5-15.5); WBC 10.6 k/uL (3.8-10.6)
[2025-01-15 06:12] LABS: ALT 44 U/L (4-34); AST 53 U/L (14-36); African American GFR (CKD) >90 (>60 ml/min/1.73 sqM); Albumin 3.2 g/dL (3.5-5.0); Alkaline Phosphatase 174 U/L (38-126); Anion Gap 5 mmol/L; Blood Urea Nitrogen 8 mg/dL (7-17); Calcium 8.5 mg/dL (8.4-10.2); Carbon Dioxide 34 mmol/L (22-30); Chloride 98 mmol/L (98-107); Glucose 94 mg/dL (74-99); Non-African American GFR(CKD) >90 (>60 ml/min/1.73 sqM); Potassium 3.4 mmol/L (3.5-5.1); Sodium 137 mmol/L (137-145); Total Protein 5.8 g/dL (6.3-8.2)
[2025-01-15 06:46] LABS: Macrocytosis Marked
[2025-01-15] MEDS: POTASSIUM BICARBONATE/CIT AC 20 MEQ TABLET.EFF NG-TUBE SCH (06:52)
[2025-01-15] MEDS ORDERED: TIOTROPIUM 2.5 MCG INHALER INHALATION SCH (08:00)
[2025-01-15] MEDS: NICOTINE 14MG/24HR PATCH TRANSDERM SCH (08:37)
[2025-01-15] MEDS: ASPIRIN 325 MG TAB PO SCH (08:38)
[2025-01-15] MEDS: CYANOCOBALAMIN 500 MCG TAB PO SCH (08:38)
[2025-01-15 09:21] VITALS: BMI 28.5
[2025-01-15] MEDS: HEPARIN SODIUM,PORCINE 5,000 UNIT/ML 1 ML VIAL SQ SCH (10:54)
[2025-01-15] MEDS: SERTRALINE 50 MG TAB PO SCH (11:16)
--- NOTE | 2025-01-15 11:52 | XR ---
EXAMINATION TYPE: XR chest 1V portable DATE OF EXAM: 01/15/2025 CLINICAL HISTORY: Difficulty breathing progress study. TECHNIQUE: Single AP portable upright view of the chest is obtained. COMPARISON: Chest x-ray from one day earlier FINDINGS: Persistent mild to moderate central vascular congestion and bilateral interstitial edema a long with small bilateral pleural effusions and cardiomegaly.. More focal increased opacity right low er lung which is more prominent on current study. An azygos lobe/fissure which is normal variant is r edemonstrated. Osseous structures are demineralized. IMPRESSION: Findings consistent with persistent CHF exacerbation/fluid overload state remain present. In addition one must consider underlying right lower lung acute pneumonic infiltrate. [facility], , 01/15/2025 11:49 AM
[2025-01-15] MEDS: METOPROLOL TARTRATE 12.5 MG TAB PO SCH (13:08)
[2025-01-15] MEDS ORDERED: ALPRAZolam 0.5 MG TAB PO PRN (13:27)
[2025-01-15] MEDS ORDERED: ALPRAZolam 0.25 MG TAB PO PRN (13:27)
[2025-01-15] MEDS ORDERED: NITROGLYCERIN SL TABS 0.4 MG TAB SUBLINGUAL PRN (13:27)
[2025-01-15] MEDS: ASPIRIN 325 MG TAB PO STA (13:46)
[2025-01-15] MEDS: ATORVASTATIN 80 MG TAB PO STA (13:46)
--- NOTE | 2025-01-15 14:24 | P.PN ---
Subjective Progress Note Date: 01/15/25 Principal diagnosis: Acute hypoxic respiratory failure secondary to acute systolic congestive heart failure COPD and cardiac arrest/ventricular tachycardia/torsade This is a 64-year-old female patient with a known history of chronic obstructive pulmonary disease, chronic and ongoing tobacco dependence, hypertension, depression, occasional alcohol use who presented here early this morning after a 2 to 3-day history of increasing shortness of breath. Productive cough with whi te sputum. No fever or chills. She was found to be quite hypoxemic and placed on BiPAP 14/5 and 50% FiO2. Chest x-ray reveals bilateral pleural effusions with increased lung markings and evidence of chronic lung disease. She was also very hypertensive with presenting blood pressure of 153/113. White count 10.1. Hemoglobin 13.1. Platelets 210. Sodium 138. Potassium 3.5. Bicarb 21. BUN 9. Creatinine 0.58. Glucose 126. proBNP 2600. AST 87. ALT 53. Alk phos 240. Viral screen negative. She is seen today in consultation in the emergency department. She remains on BiPAP. She is awake and alert. She is feeling a bit better since she came in. She is started on a nitroglycerin drip at 20 mcg/min. Blood pressure improving. She denies any previous cardiac disease. EKG reveals sinus tachycardia with no significant ST or T wave abnormalities. Echocardiogram reveals severely impaired left ventricular systolic function with an ejection fraction of 30 to 35%. Akinetic septum. Moderate to severe mitral regurgitation. Moderate aortic regurgitation. Patient was seen today on 01/15/2025, patient was admitted yesterday from the ER to ICU shortly after she sustained an episode of ventricular tachycardia/cardiac arrest/torsades patient had CPR, 10 compressions were given during the CPR, patient was bolused with amiodarone, then she was admitted to the ICU on amiodarone drip. Patient did not require intubation, her amiodarone drip remains at 0.5 mg/min, her IV fluids at KVO remains on Lasix 40 mg IV push every 12 hours echocardiogram showed severe LV dysfunction with ejection fraction of 30 to 35%. Today the patient is on 2 L nasal cannula yesterday she was on BiPAP 14/5/35%. Overall the patient is stable today, but she clearly needs to be monitored in the ICU, and cardiology has already evaluated the patient. WBC count today is 10.6 hemoglobin is 12 electrolytes are normal renal profile is normal bicarb is 34, troponin is 0.049. Yesterday's troponin was 0.068 chest x- ray continues to show evidence of pulmonary edema possible right lower lobe atelectasis/consolidation, however her procalcitonin level is 0.07. Patient did receive ceftriaxone and Zithromax in the ER, but considering a normal procalcitonin level, will hold antibiotics for now. Objective - Vital Signs Vital signs: Vital Signs Temp 97.6 F 01/15/25 12:00 Pulse 93 01/15/25 14:00 Resp 18 01/15/25 14:00 BP 111/71 01/15/25 14:00 Pulse Ox 96 01/15/25 14:00 FiO2 35 01/14/25 14:30 Intake & Output 01/14/25 01/15/25 01/15/25 18:59 06:59 18:59 Intake Total 58.50 928 360 Output Total 1500 1300 Balance 58.50 -572 -940 Weight 73.1 kg 73.1 kg Intake: IV 140 Sodium Chloride 0.9% 1, 140 000 ml @ 20 mls/hr IV . Q24H [facility] Rx#:[id number] Intake, IV Titration 58.50 928 20 Amount Dextrose 5% in Water 100 618 ml @ 618 mls/hr IV .Q10M ONE with Amiodarone 150 mg Rx#:[id number] Magnesium Sulfate-D5w Pmx 100 1 gm In Dextrose/Water 1 100ml.bag @ 100 mls/hr IVPB ONCE ONE Rx#: [id number] Nitroglycerin-D5w Pmx 50 58.50 mg In Dextrose/Water 1 250ml.bag @ 5 MCG/MIN 1.5 mls/hr IV .Q24H [facility] Rx#: [id number] Sodium Chloride 0.9% 1, 210 20 000 ml @ 20 mls/hr IV . Q24H [facility] Rx#:[id number] Oral 200 Output: Urine 1500 1300 Other: Voiding Method External Catheter External Catheter External Catheter # Voids 1 # Bowel Movements 1 - Exam GENERAL EXAM: Revealed a 64-year-old female in no distress on few liters nasal cannula. Off BiPAP. HEAD: Normocephalic. EYES: Normal reaction of pupils, equal size. NOSE: Clear with pink turbinates. THROAT: No erythema or exudates. NECK: No masses, no JVD. CHEST: No chest wall deformity. LUNGS: Diminished breath sounds at the bases with crackles no rhonchi no wheezes CVS: S1 and S2 normal with an audible murmur, regular rhythm. ABDOMEN: No hepatosplenomegaly, normal bowel sounds, no guarding or rigidity. SKIN: No rashes CENTRAL NERVOUS SYSTEM: Alert and oriented x 3 no gross focal deficit EXTREMITIES: There is trace peripheral edema. No clubbing, no cyanosis. Peripheral pulses are intact. - Labs CBC & Chem 7: 01/15/25 05:09 01/15/25 11:47 Labs: Abnormal Lab Results - Last 24 Hours (Table) 01/14/25 01/14/25 01/14/25 Range/Units 17:03 17:06 17:06 WBC 11.1 H (3.8-10.6) k/uL RBC 3.51 L (3.80-5.40) m/uL MCV 118.9 H (80.0-100.0) fL MCH 36.5 H (25.0-35.0) pg MCHC 30.7 L (31.0-37.0) g/dL RDW 18.1 H (11.5-15.5) % Neutrophils # 9.6 H (1.3-7.7) k/uL Lymphocytes # 0.9 L (1.0-4.8) k/uL Macrocytosis Marked A Potassium (3.5-5.1) mmol/L Carbon Dioxide (22-30) mmol/L Creatinine 0.47 L (0.52-1.04) mg/dL Glucose 153 H (74-99) mg/dL POC Glucose (mg/dL) 126 H (70-110) mg/dL AST (14-36) U/L ALT (4-34) U/L Alkaline Phosphatase (38-126) U/L Troponin I (0.000-0.034) ng/mL Total Protein (6.3-8.2) g/dL Albumin (3.5-5.0) g/dL 01/14/25 01/14/25 01/15/25 Range/Units 17:06 18:16 05:09 WBC (3.8-10.6) k/uL RBC (3.80-5.40) m/uL MCV (80.0-100.0) fL MCH (25.0-35.0) pg MCHC (31.0-37.0) g/dL RDW (11.5-15.5) % Neutrophils # (1.3-7.7) k/uL Lymphocytes # (1.0-4.8) k/uL Macrocytosis Potassium 3.4 L (3.5-5.1) mmol/L Carbon Dioxide 34 H (22-30) mmol/L Creatinine 0.51 L (0.52-1.04) mg/dL Glucose (74-99) mg/dL POC Glucose (mg/dL) 147 H (70-110) mg/dL AST 53 H (14-36) U/L ALT 44 H (4-34) U/L Alkaline Phosphatase 174 H (38-126) U/L Troponin I 0.068 H* (0.000-0.034) ng/mL Total Protein 5.8 L (6.3-8.2) g/dL Albumin 3.2 L (3.5-5.0) g/dL 01/15/25 01/15/25 Range/Units 05:09 12:56 WBC (3.8-10.6) k/uL RBC 3.38 L (3.80-5.40) m/uL MCV 118.7 H (80.0-100.0) fL MCH 35.6 H (25.0-35.0) pg MCHC 30.0 L (31.0-37.0) g/dL RDW 18.2 H (11.5-15.5) % Neutrophils # 8.2 H (1.3-7.7) k/uL Lymphocytes # (1.0-4.8) k/uL Macrocytosis Marked A Potassium (3.5-5.1) mmol/L Carbon Dioxide (22-30) mmol/L Creatinine (0.52-1.04) mg/dL Glucose (74-99) mg/dL POC Glucose (mg/dL) (70-110) mg/dL AST (14-36) U/L ALT (4-34) U/L Alkaline Phosphatase (38-126) U/L Troponin I 0.049 H* (0.000-0.034) ng/mL Total Protein (6.3-8.2) g/dL Albumin (3.5-5.0) g/dL Microbiology - Last 24 Hours (Table) 01/14/25 06:20 Blood Culture - Preliminary Blood Assessment and Plan Assessment: Impression: Cardiac arrest/ventricular tachycardia/torsade, patient required very brief CPR Acute hypoxemic respiratory failure secondary to an acute exacerbation of systolic congestive heart failure, COPD exacerbation, valvular heart disease, and secondary to ventricular tachycardia Acute exacerbation of chronic obstructive pulmonary disease Hypertensive urgency, currently on nitroglycerin drip at 20 mcg/min Ischemic versus nonischemic cardiomyopathy with an ejection fraction of 30 to 35% Moderate to severe mitral regurgitation Moderate aortic regurgitation Chronic and ongoing tobacco dependence of 40 years History of hypertension History of depression History of chronic back pain Recommendation: Continue to monitor in the ICU Continue amiodarone Echocardiogram report was reviewed Continue Lasix twice daily Continue bronchodilators Titrate oxygen accordingly Continue GI and DVT prophylaxis Cardiology to see on consultation Will continue to follow Time with Patient: Less than 30
--- NOTE | 2025-01-15 14:54 | P.CRDCN ---
History of Present Illness History of present illness: HISTORY OF PRESENTING ILLNESS This is a pleasant 64-year-old with past medical history significant for tobacco abuse, occasional alcohol use, COPD. She does not follow with a continuous improvement manager. She states her has been having some recent fever, chills and cough and she developed a cough over the last 2 days with increasing shortness of breath. She has been having mild chest heaviness with some of these episodes. She has been feeling somewhat more anxious at times with the shortness of breath. She denies any actual fevers or chills. She presented to the emergency department and was having some increasing blood pressure and became tachycardic and therefore nitroglycerin was started. Blood test mildly abnormal with troponin 0.06. She was placed on oxygen. She had episode of polymorphic VT and patient does not recall this episode however apparently was unresponsive and received approximately 10 chest compressions and then came to. She has been having occasional nonsustained VT on telemetry. She was placed on amiodarone drip. Echocardiogram was performed which showed EF 30 to 35% with moderate to severe mitral regurgitation. She denies any significant lower extremity edema. She does smoke a pack per day, occasional alcohol use on the weekends and family history of CAD as well as heart failure, permanent pacemaker. REVIEW OF SYSTEMS At the time of my exam: CONSTITUTIONAL: Denies fever or chills. CARDIOVASCULAR: Denies chest pain, shortness of breath, orthopnea, PND or palpitations. RESPIRATORY: Denies cough. GASTROINTESTINAL: Denies abdominal pain, diarrhea, constipation, nausea or vomiting. MUSCULOSKELETAL: Denies myalgias. NEUROLOGIC: Denies numbness, tingling or weakness. ENDOCRINE: Denies fatigue, weight change, polydipsia or polyurina. GENITOURINARY: Denies burning, hematuria or urgency with micturation. HEMATOLOGIC: Denies history of anemia or bleeding. PHYSICAL EXAMINATION Vital signs reviewed. CONSTITUTIONAL: No apparent distress. HEENT: Head is normocephalic. Pupils are equal, round. Sclerae anicteric. Mucous membranes of the mouth are moist. No JVD. No carotid bruit. CHEST EXAMINATION: Lungs are clear to auscultation. No chest wall tenderness is noted on palpation or with deep breathing. HEART EXAMINATION: Regular rate and rhythm. S1, S2 heard. No murmurs, gallops or rub. ABDOMEN: Soft, nontender. Positive bowel sounds. EXTREMITIES: 2+ peripheral pulses, no lower extremity edema and no calf tenderness. NEUROLOGIC EXAMINATION: Patient is awake, alert and oriented x3. ASSESSMENT Polymorphic VT with brief chest compressions Non-STEMI Cardiomyopathy unclear ischemic versus nonischemic Moderate to severe mitral regurgitation Recent cough, shortness of breath questionable component of infectious etiology Acute on chronic systolic heart failure Tobacco abuse History of COPD PLAN Patient with presentation of some infectious concern with cough and shortness of breath however concern of acute coronary syndrome with shortness of breath, some atypical chest pain and mildly elevated troponins. Additionally patient having polymorphic ventricular tachycardia. Continue with amiodarone for now however if has more significant episodes may consider changing to lidocaine. Start metoprolol 12.5 mg twice a day and monitor response. Patient with new onset of cardiomyopathy and discussed risks and benefits of heart catheterization and patient understanding and wishing to proceed. Hopeful improvement in mitral regurgitation with optimization of heart failure regimen. Further recommendations to follow. Past Medical History Past Medical History: Asthma, COPD, GERD/Reflux, Hypertension Additional Past Medical History / Comment(s): ABD PAIN, DIARRHEA. History of Any Multi-Drug Resistant Organisms: None Reported Past Surgical History: Tubal Ligation Additional Past Surgical History / Comment(s): RUPTURED OVARIAN CYST Smoking Status: Current every day smoker Medications and Allergies Home Medications Medication Instructions Recorded Confirmed Type Albuterol Sulfate [Albuterol 2 puff INHALATION RT-Q4H PRN 01/14/25 01/14/25 History Sulfate Hfa] Cyanocobalamin [Vitamin B-12] 500 mcg PO DAILY 01/14/25 01/14/25 History Glycopyrrolate/Formoterol Fum 2 puff INHALATION RT-BID 01/14/25 01/14/25 History [Bevespi Aerosphere Inhaler] Sertraline [Zoloft] 50 mg PO DAILY 01/14/25 01/14/25 History amLODIPine [Norvasc] 5 mg PO DAILY 01/14/25 01/14/25 History lisinopriL [Zestril] 20 mg PO DAILY 01/14/25 01/14/25 History methocarbamoL [Robaxin-750] 750 mg PO TID PRN 01/14/25 01/14/25 History Allergies Allergy/AdvReac Type Severity Reaction Status Date / Time shellfish derived [Shrimp] Allergy Unknown Verified 01/14/25 09:35 Physical Exam Vitals: Vital Signs Temp Pulse Resp BP Pulse Ox FiO2 01/15/25 13:00 105 H 22 112/57 96 01/15/25 12:00 97.6 F 95 14 117/75 97 01/15/25 11:55 96 01/15/25 11:46 94 01/15/25 11:00 96 21 105/80 94 L 01/15/25 10:00 100 22 123/95 94 L 01/15/25 09:00 89 25 H 122/88 95 01/15/25 08:15 98 01/15/25 08:11 92 01/15/25 08:10 92 01/15/25 08:00 97.7 F 86 22 118/84 100 01/15/25 07:56 82 98 01/15/25 07:00 101 H 16 128/95 95 01/15/25 06:00 88 17 114/78 95 01/15/25 05:00 81 18 106/71 96 01/15/25 04:00 97.6 F 86 18 105/63 95 01/15/25 03:00 80 12 102/72 95 01/15/25 02:00 75 15 109/83 99 01/15/25 01:00 72 18 104/91 96 01/15/25 00:14 86 21 108/75 98 01/15/25 00:00 98.2 F 78 17 108/71 96 01/14/25 23:00 85 21 118/81 97 01/14/25 22:00 83 24 108/83 95 01/14/25 21:00 92 20 110/92 96 01/14/25 20:37 80 18 01/14/25 20:30 84 18 01/14/25 20:23 81 18 01/14/25 20:00 97.6 F 82 18 119/84 96 01/14/25 19:00 83 24 115/83 93 L 01/14/25 18:45 86 26 H 126/80 96 01/14/25 18:30 101 H 26 H 122/88 92 L 01/14/25 18:15 97.5 F L 95 26 H 90 L 01/14/25 17:52 91 20 120/73 94 L 01/14/25 17:15 94 L 01/14/25 17:02 101 H 18 132/58 01/14/25 17:00 225 H 18 132/58 96 01/14/25 16:08 98.1 F 89 22 132/87 96 01/14/25 15:36 91 18 119/83 98 01/14/25 15:18 89 18 110/81 97 01/14/25 15:02 80 18 114/77 98 01/14/25 14:59 229 H 01/14/25 14:40 89 01/14/25 14:30 91 35 01/14/25 14:02 98.1 F 93 18 103/84 97 Intake and Output 01/14/25 01/15/25 01/15/25 22:59 06:59 14:59 Intake Total 826.50 160 340 Output Total 6907 390 6911 Balance -173.50 -340 -960 Intake: IV 120 Sodium Chloride 0.9% 1, 120 000 ml @ 20 mls/hr IV . Q24H [facility] Rx#:[id number] Intake, IV Titration 826.50 160 20 Amount Dextrose 5% in Water 100 618 ml @ 618 mls/hr IV .Q10M ONE with Amiodarone 150 mg Rx#:[id number] Magnesium Sulfate-D5w Pmx 100 1 gm In Dextrose/Water 1 100ml.bag @ 100 mls/hr IVPB ONCE ONE Rx#: [id number] Nitroglycerin-D5w Pmx 50 58.50 mg In Dextrose/Water 1 250ml.bag @ 5 MCG/MIN 1.5 mls/hr IV .Q24H [facility] Rx#: [id number] Sodium Chloride 0.9% 1, 50 160 20 000 ml @ 20 mls/hr IV . Q24H [facility] Rx#:[id number] Oral 200 Output: Urine 5401 473 9093 Other: Voiding Method External Catheter External Catheter External Catheter # Voids 1 # Bowel Movements 1 Weight 64.864 kg 73.1 kg 73.1 kg Results 01/15/25 05:09 01/15/25 11:47 Cardiac Enzymes 01/14/25 01/15/25 Range/Units 17:06 05:09 AST 53 H (14-36) U/L Troponin I 0.068 H* (0.000-0.034) ng/mL CBC 01/14/25 01/15/25 Range/Units 17:06 05:09 WBC 11.1 H 10.6 (3.8-10.6) k/uL RBC 3.51 L 3.38 L (3.80-5.40) m/uL Hgb 12.8 12.0 (11.4-16.0) gm/dL Hct 41.8 40.1 (34.0-46.0) % Plt Count 171 175 (150-450) k/uL Comprehensive Metabolic Panel 01/14/25 01/15/25 01/15/25 Range/Units 17:06 05:09 11:47 Sodium 139 137 (137-145) mmol/L Potassium 3.5 3.4 L 3.9 (3.5-5.1) mmol/L Chloride 100 98 (98-107) mmol/L Carbon Dioxide 28 34 H (22-30) mmol/L BUN 7 8 (7-17) mg/dL Creatinine 0.47 L 0.51 L (0.52-1.04) mg/dL Glucose 153 H 94 (74-99) mg/dL Calcium 8.6 8.5 (8.4-10.2) mg/dL AST 53 H (14-36) U/L ALT 44 H (4-34) U/L Alkaline Phosphatase 174 H (38-126) U/L Total Protein 5.8 L (6.3-8.2) g/dL Albumin 3.2 L (3.5-5.0) g/dL Current Medications Generic Name Dose Route Start Last Admin Trade Name Freq PRN Reason Stop Dose Admin Albuterol/Ipratropium 3 ml 01/14/25 16:00 01/15/25 11:44 Ipratropium-Albuterol 3 Ml Neb INHALATION 3 ml RT-QID LAN Administration Albuterol/Ipratropium 3 ml 01/14/25 14:30 Ipratropium-Albuterol 3 Ml Neb INHALATION RT-Q2H PRN Shortness Of Breath Or Wheezing Aspirin 325 mg 01/15/25 09:00 01/15/25 08:38 Aspirin 325 Mg Tab PO 325 mg DAILY LAN Administration Budesonide 1 mg 01/14/25 20:00 01/15/25 07:54 Budesonide 1 Mg/2 Ml Nebu INHALATION 1 mg RT-BID LAN Administration Cyanocobalamin 500 mcg 01/15/25 09:00 01/15/25 08:38 Cyanocobalamin 500 Mcg Tab PO 500 mcg DAILY LAN Administration Formoterol Fumarate 20 mcg 01/14/25 20:00 01/15/25 07:54 Formoterol Fumarate 20 Mcg/2 Ml Nebu INHALATION 20 mcg RT-BID LAN Administration Furosemide 40 mg 01/14/25 09:00 01/15/25 08:38 Furosemide 10 Mg/Ml 4 Ml Vial IV 40 mg Q12HR LAN Administration Heparin Sodium (Porcine) 5,000 unit 01/15/25 09:45 01/15/25 10:54 Heparin Sodium,Porcine 5,000 Unit/Ml 1 Ml Vial SQ 5,000 unit Q12HR LAN Administration Sodium Chloride 1,000 mls @ 20 mls/hr 01/14/25 07:45 01/15/25 08:28 Saline 0.9% IV 20 mls/hr .Q24H [facility] Administration Amiodarone HCl 450 mg/ 250 mls @ 16.667 mls/hr 01/14/25 23:30 01/14/25 23:48 Dextrose/Water IV 01/15/25 17:29 0.5 mg/min .Q15H [facility] 16.667 mls/hr Administration Protocol 0.5 MG/MIN Lorazepam 0.5 mg 01/14/25 09:00 01/15/25 08:24 Lorazepam 0.5 Mg Tab PO 0.5 mg TID LAN Administration Methocarbamol 750 mg 01/14/25 12:26 Methocarbamol 750 Mg Tab PO TID PRN Muscle Spasm Metoprolol Tartrate 12.5 mg 01/15/25 13:15 01/15/25 13:08 Metoprolol Tartrate 12.5 Mg Tab PO 12.5 mg BID LAN Administration Miscellaneous Information 1 each 01/14/25 18:25 Potassium Replacement Protocol 1 Each Misc MISCELLANE DAILY PRN Per Protocol Protocol Miscellaneous Information 1 each 01/14/25 18:27 Magnesium Replacement Protocol 1 Each Misc MISCELLANE DAILY PRN Per Protocol Protocol Nicotine 1 patch 01/15/25 09:00 01/15/25 08:37 Nicotine 14mg/24hr Patch TRANSDERM 1 patch DAILY LAN Administration Sertraline HCl 50 mg 01/15/25 09:00 01/15/25 11:16 Sertraline 50 Mg Tab PO 50 mg DAILY LAN Administration Intake and Output 01/14/25 01/15/25 01/15/25 22:59 06:59 14:59 Intake Total 826.50 160 340 Output Total 1788 270 0922 Balance -173.50 -340 -960 Intake: IV 120 Sodium Chloride 0.9% 1, 120 000 ml @ 20 mls/hr IV . Q24H [facility] Rx#:[id number] Intake, IV Titration 826.50 160 20 Amount Dextrose 5% in Water 100 618 ml @ 618 mls/hr IV .Q10M ONE with Amiodarone 150 mg Rx#:[id number] Magnesium Sulfate-D5w Pmx 100 1 gm In Dextrose/Water 1 100ml.bag @ 100 mls/hr IVPB ONCE [facility] Rx#: [id number] Nitroglycerin-D5w Pmx 50 58.50 mg In Dextrose/Water 1 250ml.bag @ 5 MCG/MIN 1.5 mls/hr IV .Q24H [facility] Rx#: [id number] Sodium Chloride 0.9% 1, 50 160 20 000 ml @ 20 mls/hr IV . Q24H [facility] Rx#:[id number] Oral 200 Output: Urine 3019 [id number] 3773 Other: Voiding Method External Catheter External Catheter External Catheter # Voids 1 # Bowel Movements 1 Weight 64.864 kg 73.1 kg 73.1 kg Patient Weight 01/16/25 06:59 Weight 73.1 kg 01/15/25 05:09 01/15/25 11:47
--- NOTE | 2025-01-15 15:14 | P.PN ---
Subjective Progress Note Date: 01/15/25 This is a 64-year-old female medical history significant for asthma, COPD, acid reflux, anxiety, chronic nicotine use. Patient has been to the hospital with complaints of shortness of breath over the last 24 hours states that she is unable to catch her breath. Patient is evaluated in the ER currently on BiPAP. she is currently denying any chest discomfort states that she has not been having any fever or chills denies any nausea vomiting or diarrhea. Patient does admit to smoking 1 pack of cigarettes per day for the last 40 years. Occasional alcohol use. On admission white blood cell count is 10.1, hemoglobin of 13.1, sodium 138, BUN is 9 creatinine 0.58 glucose of 126, AST 87, ALT of 53 alk phos of 240. Her troponin level was initially found to be negative at 0.020, with mildly elevated proBNP of 2600. Patient's viral panel was negative for influenza, RSV, COVID. Chest x-ray completed in the ER reveals bilateral pleural effusions with adjacent atelectasis and pneumonia not excluded. There is hyperinflation of the lungs. Patient admitted to the hospital with a consult placed to pulmonology for the acute COPD exacerbation. She is currently on BiPAP settings of 14/5 with 50% FiO2 during my evaluation. States that she does not follow with a diet clerk. Patient has not admit to history of COPD however is on a combination inhaler on an outpatient basis. Patient reports no prior history of congestive heart failure does not history of high blood pressure. Her echocardiogram comes back revealing ejection fraction of 40 to 45% with moderate pulmonary hypertension. Akinetic septum. Moderate to severe mitral regurgitation and moderate aortic regurgitation. Because of these findings cardiology was consulted due to the new cardiomyopathy. Patient appears to be volume overload state was started on IV Lasix 40 mg every 12 hours while in the ER. She also was started on a nitroglycerin drip after receiving nitroglycerin as a bolus by the ER physician secondary to dyspnea hypertension diaphoresis and tachycardia. She appears to be resting comfortably at the time of my evaluation. Is currently pending a bed on the medical floor. 01/15/2025 Is evaluated today in the intensive care unit. While in the ER yesterday pending a bed on the medical floor patient had an episode of V-fib requiring CPR and was given amiodarone bolus has been started on IV amiodarone running at half rate now. Patient is currently in normal sinus rhythm controlled heart rate. She continues on 40 mg of IV Lasix every 12 hours. Patient will be going for a cardiac catheterization. She states that her breathing is significantly improved as compared to yesterday. Station weight blood cell count of 10.6, hemoglobin 12.0, sodium of 137, potassium 3.4, BUN of 8 creatinine of 0.51, felt troponin level is 0.049. Her LFTs are slightly improved at AST 53 ALT 44 alk phos 174. REVIEW OF SYSTEMS: CONSTITUTIONAL: No fever, no malaise, no fatigue. HEENT: No recent visual problems or hearing problems. Denied any sore throat. CARDIOVASCULAR: No chest pain, orthopnea, PND, no palpitations, no syncope. PULMONARY: Reports shortness of breath, no cough, no hemoptysis. GASTROINTESTINAL: No diarrhea, no nausea, no vomiting, no abdominal pain. NEUROLOGICAL: No headaches, no weakness, no numbness. PHYSICAL EXAMINATION: GENERAL: The patient is alert and oriented x3, not in any acute distress. Well developed, well nourished. on 3L of oxygen via nasal cannula HEENT: Pupils are round and equally reacting to light. EOMI. No scleral icterus. No conjunctival pallor. Normocephalic, atraumatic. No pharyngeal erythema. No thyromegaly. CARDIOVASCULAR: S1 and S2 present. No murmurs, rubs, or gallops. PULMONARY: Faint scattered wheezing ABDOMEN: Soft, nontender, nondistended, normoactive bowel sounds. No palpable organomegaly. MUSCULOSKELETAL: No joint swelling or deformity. EXTREMITIES: No cyanosis, clubbing, or pedal edema. NEUROLOGICAL: Gross neurological examination did not reveal any focal deficits. SKIN: No rashes. 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; with an ejection fraction found to be 30 to 35% Episode of Vfib currently on IV amiodarone moderate pulmonary hypertension, moderate history of breast regurgitation and moderate aortic regurgitation Troponin elevation unable to rule out acute coronary syndrome cardiology has been consulted for evaluation Tachycardia and hypertension with urgency responded to nitroglycerin History of hypertension History of COPD with mild acute exacerbation History of asthma Gastroesophageal reflux disease History of anxiety Chronic and ongoing nicotine use patient is a 1 pack per day smoker transaminitis likely due to volume overload state GI prophylaxis DVT prophylaxis Plan Nitroglycerin has been discontinued Continues on IV amiodarone Continue IV lasix 40 mg Q12 hour and strict intake and output monitoring [facility] cardiology Patient will be going for cardiac catheterization Monitor electrolytes and renal function The impression and plan of care has been dictated by Kaye Grant Nurse Practitioner as directed. Dr. Pascual MD I have performed a history and physical examination and medical decision making of this patient, discussed the same with the dictator, and agree with the dictators assessment and plan as written, documented as a scribe. Based on total visit time, I have performed more than 50% of this visit. Objective - Vital Signs Vital signs: Vital Signs Temp 97.7 F 01/15/25 08:00 Pulse 98 01/15/25 08:15 Resp 22 01/15/25 08:00 BP 118/84 01/15/25 08:00 Pulse Ox 100 01/15/25 08:00 FiO2 35 01/14/25 14:30 Intake & Output 01/14/25 01/15/25 01/15/25 18:59 06:59 18:59 Intake Total 58.50 928 40 Output Total 1500 300 Balance 58.50 572 -260 Weight 73.1 kg 73.1 kg Intake: IV 20 Sodium Chloride 0.9% 1, 20 000 ml @ 20 mls/hr IV . Q24H [facility], [facility]1983 Rx#:[id number] Intake, IV Titration 58.50 928 20 Amount Dextrose 5% in Water 100 618 ml @ 618 mls/hr IV .Q10M ONE with Amiodarone 150 mg Rx#:[id number] Magnesium Sulfate-D5w Pmx 100 1 gm In Dextrose/Water 1 100ml.bag @ 100 mls/hr IVPB ONCE ONE Rx#: [id number] Nitroglycerin-D5w Pmx 50 58.50 mg In Dextrose/Water 1 250ml.bag @ 5 MCG/MIN 1.5 mls/hr IV .Q24H ONE Rx#: [id number] Sodium Chloride 0.9% 1, 210 20 000 ml @ 20 mls/hr IV . Q24H [facility] Rx#:[id number] Output: Urine 1500 300 Other: Voiding Method External Catheter External Catheter External Catheter # Voids 1 # Bowel Movements 1 - Labs CBC & Chem 7: 01/15/25 05:09 01/15/25 11:47 Labs: Abnormal Lab Results - Last 24 Hours (Table) 01/14/25 01/14/25 01/14/25 Range/Units 17:03 17:06 17:06 WBC 11.1 H (3.8-10.6) k/uL RBC 3.51 L (3.80-5.40) m/uL MCV 118.9 H (80.0-100.0) fL MCH 36.5 H (25.0-35.0) pg MCHC 30.7 L (31.0-37.0) g/dL RDW 18.1 H (11.5-15.5) % Neutrophils # 9.6 H (1.3-7.7) k/uL Lymphocytes # 0.9 L (1.0-4.8) k/uL Macrocytosis Marked A Potassium (3.5-5.1) mmol/L Carbon Dioxide (22-30) mmol/L Creatinine 0.47 L (0.52-1.04) mg/dL Glucose 153 H (74-99) mg/dL POC Glucose (mg/dL) 126 H (70-110) mg/dL AST (14-36) U/L ALT (4-34) U/L Alkaline Phosphatase (38-126) U/L Troponin I (0.000-0.034) ng/mL Total Protein (6.3-8.2) g/dL Albumin (3.5-5.0) g/dL 01/14/25 01/14/25 01/15/25 Range/Units 17:06 18:16 05:09 WBC (3.8-10.6) k/uL RBC (3.80-5.40) m/uL MCV (80.0-100.0) fL MCH (25.0-35.0) pg MCHC (31.0-37.0) g/dL RDW (11.5-15.5) % Neutrophils # (1.3-7.7) k/uL Lymphocytes # (1.0-4.8) k/uL Macrocytosis Potassium 3.4 L (3.5-5.1) mmol/L Carbon Dioxide 34 H (22-30) mmol/L Creatinine 0.51 L (0.52-1.04) mg/dL Glucose (74-99) mg/dL POC Glucose (mg/dL) 147 H (70-110) mg/dL AST 53 H (14-36) U/L ALT 44 H (4-34) U/L Alkaline Phosphatase 174 H (38-126) U/L Troponin I 0.068 H* (0.000-0.034) ng/mL Total Protein 5.8 L (6.3-8.2) g/dL Albumin 3.2 L (3.5-5.0) g/dL 01/15/25 Range/Units 05:09 WBC (3.8-10.6) k/uL RBC 3.38 L (3.80-5.40) m/uL MCV 118.7 H (80.0-100.0) fL MCH 35.6 H (25.0-35.0) pg MCHC 30.0 L (31.0-37.0) g/dL RDW 18.2 H (11.5-15.5) % Neutrophils # 8.2 H (1.3-7.7) k/uL Lymphocytes # (1.0-4.8) k/uL Macrocytosis Marked A Potassium (3.5-5.1) mmol/L Carbon Dioxide (22-30) mmol/L Creatinine (0.52-1.04) mg/dL Glucose (74-99) mg/dL POC Glucose (mg/dL) (70-110) mg/dL AST (14-36) U/L ALT (4-34) U/L Alkaline Phosphatase (38-126) U/L Troponin I (0.000-0.034) ng/mL Total Protein (6.3-8.2) g/dL Albumin (3.5-5.0) g/dL Assessment and Plan Time with Patient: Less than 30
[2025-01-15] MEDS: MIDAZOLAM 2 MG/2 ML VIAL IVP ONE (16:48)
[2025-01-15] MEDS: fentaNYL (PF) 50 MCG/ML 2 ML AMP IVP ONE (16:48)
[2025-01-15] MEDS: LIDOCAINE 1% INJ 10MG/ML (20 ML MDV) SQ ONE (16:49)
[2025-01-15] MEDS: VERAPAMIL SYRINGE (5 MG/10 ML) INTRAARTER ONE (16:49)
[2025-01-15] MEDS: SODIUM CHLORIDE 0.9% 1,000 ML IV ONE (16:51)
[2025-01-15] MEDS: HEPARIN SODIUM 1,000 UN/ML (10ML VL) IV ONE (16:51)
--- NOTE | 2025-01-15 17:02 | P.CARDCATH ---
Description of Procedure: PROCEDURES PERFORMED: Left heart catheterization, bilateral coronary angiography, ultrasound guided arterial access INDICATION: Non-STEMI CONSENT:I have discussed the risks, benefits and alternative therapies for the above-mentioned procedure and for both sedation/analgesia as well as necessary blood product administration, if indicated, as they pertain to this patient. The patient has indicated understanding and acceptance of the risks and procedures discussed. PROCEDURE: After the risks, benefits and alternatives of the above mentioned procedure explained in detail with the patient, informed consent was obtained. Patient was taken to the catheterization lab and prepped and draped in usual fashion. Ultrasound guidance was used to assess for arterial access. 1% lidocaine was used to anesthetize the right radial artery. A 6-Sing[place]an sheath was placed in the right radial artery using modified Seldinger technique and ul trasound guidance. Left coronary angiography was performed with a 5-[place]an JL 3.5 catheter and right coronary angiography was performed with a 5-[place]an FR5 catheter in various views. A 5-[place]an FR5 catheter was inserted into the left ventricle and pressure measurements were obtained. A 4 [place]an pigtail catheter was inserted in the left ventricle and left ventriculogram was performed with power injection. The right radial sheath was removed and a TR band was placed with hemostasis achieved. The patient tolerated the procedure well. Patient was transported back to the post catheterization holding area in stable condition. Conscious Sedation: Patient was monitored under the direct supervision of myself for conscious sedation using Versed and fentanyl for a total duration of 11 minutes HEMODYNAMICS: Ao: 111/76 LV: 110/12, LVEDP 25 SELECTIVE CORONARY ARTERIOGRAPHY: LEFT MAIN: The left main is a large caliber vessel which bifurcates into the LAD and circumflex. There is no significant stenosis. LEFT ANTERIOR DESCENDING CORONARY ARTERY: LAD is a large caliber vessel which wraps around to the apex. There is no significant stenosis. LEFT CIRCUMFLEX CORONARY ARTERY: Left circumflex is a moderate caliber vessel without significant stenosis. RIGHT CORONARY ARTERY: The right coronary artery is a large caliber vessel which gives off a PDA and PLV branch and is the dominant vessel. There is no significant stenosis. Left ventriculogram: Left ventricular ejection fraction 35% with mid anterior and mid inferior hypokinesis with preservation of the apex and base may be related to myocarditis versus atypical Takotsubo's FINAL IMPRESSION: 1. Normal coronary arteries as described above. 2. Elevated left sided filling pressures 3. LV EF 35% with mid anterior and mid inferior hypokinesis with preservation of the apex and base may be related to myocarditis versus atypical Takotsubo's PLAN: 1. Aggressive risk factor modification per most recent ACC/AHA guidelines.
[2025-01-15] MEDS: IOPAMIDOL-370 100ML BTL INJ ONE (17:11)
[2025-01-15 21:41] LABS: Glucose,Whole Blood 120 mg/dL (70-110)
[2025-01-15 22:30] LABS: Anisocytosis Slight; Basophils % (A) 0 %; Eosinophils # (A) 0.1 k/uL (0-0.7); Eosinophils % (A) 1 %; HCT 41.5 % (34.0-46.0); HGB 12.7 gm/dL (11.4-16.0); Hypochromasia Marked; Lymphocytes # (A) 1.6 k/uL (1.0-4.8); Lymphocytes % (A) 15 %; MCH 36.4 pg (25.0-35.0); MCHC 30.5 g/dL (31.0-37.0); Macrocytosis Marked; Mean Platelet Volume 9.7; Monocytes # (A) 0.9 k/uL (0-1.0); Monocytes % (A) 8 %; Neutrophils % (A) 74 %; Platelet Count 191 k/uL (150-450); RBC 3.47 m/uL (3.80-5.40); RDW 17.8 % (11.5-15.5); WBC 10.8 k/uL (3.8-10.6)
[2025-01-15 22:40] LABS: MCV 119.5 fL (80.0-100.0)
[2025-01-16 00:08] LABS: African American GFR (CKD) >90 (>60 ml/min/1.73 sqM); Anion Gap 7 mmol/L; Blood Urea Nitrogen 10 mg/dL (7-17); Calcium 8.5 mg/dL (8.4-10.2); Carbon Dioxide 33 mmol/L (22-30); Chloride 95 mmol/L (98-107); Glucose 101 mg/dL (74-99); Magnesium 1.9 mg/dL (1.6-2.3); Non-African American GFR(CKD) >90 (>60 ml/min/1.73 sqM); Potassium 3.4 mmol/L (3.5-5.1); Sodium 135 mmol/L (137-145)
[2025-01-16] MEDS: POTASSIUM BICARBONATE/CIT AC 20 MEQ TABLET.EFF NG-TUBE SCH ×2 (01:41→08:44)
[2025-01-16] MEDS: MAGNESIUM SULFATE-D5W PMX 1 GM in DEXTROSE/WATER 1 100ML.BAG IVPB ONE (01:41)
[2025-01-16] MEDS: AMIODARONE 450 MG in DEXTROSE 5% IN WATER 250 ML IV SCH ×2 (04:21→15:14)
[2025-01-16 06:15] LABS: Anisocytosis Slight; Basophils # (A) 0.1 k/uL (0-0.2); Basophils % (A) 1 %; Eosinophils # (A) 0.1 k/uL (0-0.7); Eosinophils % (A) 1 %; HCT 41.5 % (34.0-46.0); HGB 12.8 gm/dL (11.4-16.0); Hypochromasia Marked; Lymphocytes # (A) 1.7 k/uL (1.0-4.8); Lymphocytes % (A) 18 %; MCH 36.4 pg (25.0-35.0); MCHC 30.7 g/dL (31.0-37.0); Macrocytosis Marked; Mean Platelet Volume 9.8; Monocytes % (A) 10 %; Neutrophils # (A) 6.8 k/uL (1.3-7.7); Neutrophils % (A) 69 %; Platelet Count 201 k/uL (150-450); RDW 17.5 % (11.5-15.5); WBC 9.8 k/uL (3.8-10.6)
[2025-01-16 06:22] LABS: MCV 118.4 fL (80.0-100.0)
[2025-01-16] MEDS ORDERED: HEPARIN SODIUM,PORCINE (1 ML) 2,500 UNIT in SODIUM CHLORIDE 0.9% 250 ML IRRIGATION PRN (07:00)
[2025-01-16] MEDS ORDERED: HEPARIN SODIUM,PORCINE 10,000 UNIT in SODIUM CHLORIDE 0.9% 1,000 ML IRRIGATION PRN (07:00)
[2025-01-16 07:38] LABS: African American GFR (CKD) >90 (>60 ml/min/1.73 sqM); Anion Gap 6 mmol/L; Blood Urea Nitrogen 8 mg/dL (7-17); Calcium 8.5 mg/dL (8.4-10.2); Carbon Dioxide 36 mmol/L (22-30); Chloride 93 mmol/L (98-107); Glucose 93 mg/dL (74-99); Magnesium 2.4 mg/dL (1.6-2.3); Non-African American GFR(CKD) >90 (>60 ml/min/1.73 sqM); Potassium 3.9 mmol/L (3.5-5.1); Sodium 135 mmol/L (137-145)
[2025-01-16] MEDS: DEXTROSE 5% IN WATER 100 ML with AMIODARONE 150 MG IV ONE (09:03)
[2025-01-16] MEDS: AMIODARONE 360 MG in DEXTROSE 5% IN WATER 200 ML IV ONE (09:15)
--- NOTE | 2025-01-16 09:32 | XR ---
EXAMINATION TYPE: XR chest 1V portable DATE OF EXAM: 01/16/2025 CLINICAL HISTORY: Difficulty breathing and CHF progress study. TECHNIQUE: Single AP portable upright view of the chest is obtained. COMPARISON: Chest x-ray from one day earlier FINDINGS: Persistent mild central vascular congestion and bilateral interstitial edema along with sm all bilateral pleural effusions and cardiomegaly.. More focal increased opacity right lower lung is r edemonstrated. An azygos lobe/fissure which is normal variant is redemonstrated. Osseous structures a re demineralized. IMPRESSION: Findings consistent with persistent CHF exacerbation/fluid overload state remain present. In addition one must consider underlying right lower lung acute pneumonic infiltrate. No significant change from one day earlier. [facility], , 01/16/2025 9:30 AM
[2025-01-16] MEDS: HEPARIN SODIUM 1,000 UN/ML (10ML VL) IV ONE (09:34)
[2025-01-16] MEDS: HEPARIN SOD,PORK IN 0.45% NACL 25,000 UNIT in 0.45% NACL 1 250ML.BAG IV SCH (09:35)
[2025-01-16 09:38] LABS: INR 0.9 (<1.2); Partial Thromboplastin Time 22.9 sec (22.0-30.0); Prothrombin Time 10.5 sec (10.0-12.5)
--- NOTE | 2025-01-16 09:44 | P.PN ---
Subjective HISTORY OF PRESENTING ILLNESS This is a pleasant 64-year-old with past medical history significant for tobacco abuse, occasional alcohol use, COPD. She does not follow with a director of casework services. She states her has been having some recent fever, chills and cough and she developed a cough over the last 2 days with increasing shortness of breath. She has been having mild chest heaviness with some of these episodes. She has been feeling somewhat more anxious at times with the shortness of breath. She denies any actual fevers or chills. She presented to the emergency department and was having some increasing blood pressure and became tachycardic and therefore nitroglycerin was started. Blood test mildly abnormal with troponin 0.06. She was placed on oxygen. She had episode of polymorphic VT and patient does not recall this episode however apparently was unresponsive and received approximately 10 chest compressions and then came to. She has been having occasional nonsustained VT on telemetry. She was placed on amiodarone drip. Echocardiogram was performed which showed EF 30 to 35% with moderate to severe mitral regurgitation. She denies any significant lower extremity edema. She does smoke a pack per day, occasional alcohol use on the weekends and family history of CAD as well as heart failure, permanent pacemaker. 01/16 Patient seen and examined. Patient had another episode of polymorphic ventricular tachycardia for 24 beats which resolved on its own. Patient has been in atrial fibrillation since that time with heart rates in the 120s to 140s. Systolic blood pressure variable in the upper 70s to 90s. Denies any chest pain or pressure. Still mildly short of breath. She cannot really feel any of the A-fib. She was placed on metoprolol yesterday and tolerating. PHYSICAL EXAMINATION Vital signs reviewed. CONSTITUTIONAL: No apparent distress. HEENT: Head is normocephalic. Pupils are equal, round. Sclerae anicteric. Mucous membranes of the mouth are moist. No JVD. No carotid bruit. CHEST EXAMINATION: Lungs are clear to auscultation. No chest wall tenderness is noted on palpation or with deep breathing. HEART EXAMINATION: Irregular rate and rhythm. S1, S2 heard. No murmurs, gallops or rub. ABDOMEN: Soft, nontender. Positive bowel sounds. EXTREMITIES: 2+ peripheral pulses, no lower extremity edema and no calf tenderness. NEUROLOGIC EXAMINATION: Patient is awake, alert and oriented x3. ASSESSMENT Polymorphic VT with brief chest compressions Non-STEMI Cardiomyopathy unclear ischemic versus nonischemic Moderate to severe mitral regurgitation Recent cough, shortness of breath questionable component of infectious etiology Paroxysmal atrial fibrillation, new onset Wall motion abnormalities with mid anterior and mid inferior hypokinesis. May be Takotsubo's variant versus myocarditis Shock, may be component of cardiogenic plus or minus sepsis QT prolongation PLAN: Patient with recurrent episodes of polymorphic VT. she does have some prolonged QT with some heart rate variability however mainly QTc appears around 500. Prolonged QT may be the cause of 4 recurrent episodes of polymorphic VT with no significant ischemic etiology noted on catheterization. Presentation may be Takotsubo's versus myocarditis. Given more electrical instability may also be giant cell myocarditis. Check ESR and CRP and if elevated consider high-dose steroids for possible giant cell myocarditis. Norepinephrine as needed. Beta- erasto as tolerated. Monitor hemodynamics closely. Heparin drip for atrial fibrillation. Further recommendations to follow. Objective - Vital Signs Vital signs: Vital Signs Temp 97.7 F 01/16/25 08:00 Pulse 129 H 01/16/25 09:15 Resp 21 01/16/25 09:15 BP 86/64 01/16/25 09:15 Pulse Ox 94 L 01/16/25 09:15 FiO2 35 01/14/25 14:30 Intake & Output 01/15/25 01/16/25 01/16/25 18:59 06:59 18:59 Intake Total 982.783 720 260 Output Total 1350 2050 150 Balance -367.217 -1330 110 Weight 73.1 kg 73.1 kg Intake: IV 320 220 60 Sodium Chloride 0.9% 1, 220 220 60 000 ml @ 20 mls/hr IV . Q24H [facility] Rx#:[id number] Intake, IV Titration 262.783 100 Amount Amiodarone 450 mg In 242.783 Dextrose 5% in Water 250 ml @ 0.5 MG/MIN 16.667 mls/hr IV .Q15H [facility] Rx#: [id number] Magnesium Sulfate-D5w Pmx 100 1 gm In Dextrose/Water 1 100ml.bag @ 100 mls/hr IVPB ONCE ONE Rx#: [id number] Sodium Chloride 0.9% 1, 20 000 ml @ 20 mls/hr IV . Q24H [facility] Rx#:[id number] Oral 400 400 200 Output: Urine 1350 2050 150 Other: Voiding Method External Catheter External Catheter External Catheter # Bowel Movements 1 1 - Labs CBC & Chem 7: 01/16/25 05:05 01/16/25 05:05 Labs: Abnormal Lab Results - Last 24 Hours (Table) 01/15/25 01/15/25 01/15/25 Range/Units 12:56 21:40 21:50 WBC 10.8 H (3.8-10.6) k/uL RBC 3.47 L (3.80-5.40) m/uL MCV 119.5 H (80.0-100.0) fL MCH 36.4 H (25.0-35.0) pg MCHC 30.5 L (31.0-37.0) g/dL RDW 17.8 H (11.5-15.5) % Neutrophils # 8.0 H (1.3-7.7) k/uL Macrocytosis Marked A Sodium (137-145) mmol/L Potassium (3.5-5.1) mmol/L Chloride (98-107) mmol/L Carbon Dioxide (22-30) mmol/L Glucose (74-99) mg/dL POC Glucose (mg/dL) 120 H (70-110) mg/dL Magnesium (1.6-2.3) mg/dL Troponin I 0.049 H* (0.000-0.034) ng/mL 01/15/25 01/16/25 01/16/25 Range/Units 23:00 05:05 05:05 WBC (3.8-10.6) k/uL RBC 3.50 L (3.80-5.40) m/uL MCV 118.4 H (80.0-100.0) fL MCH 36.4 H (25.0-35.0) pg MCHC 30.7 L (31.0-37.0) g/dL RDW 17.5 H (11.5-15.5) % Neutrophils # (1.3-7.7) k/uL Macrocytosis Marked A Sodium 135 L 135 L (137-145) mmol/L Potassium 3.4 L (3.5-5.1) mmol/L Chloride 95 L 93 L (98-107) mmol/L Carbon Dioxide 33 H 36 H (22-30) mmol/L Glucose 101 H (74-99) mg/dL POC Glucose (mg/dL) (70-110) mg/dL Magnesium 2.4 H (1.6-2.3) mg/dL Troponin I (0.000-0.034) ng/mL Microbiology - Last 24 Hours (Table) 01/14/25 06:20 Blood Culture - Preliminary Blood
[2025-01-16 10:00] LABS: Anisocytosis Slight; HCT 42.2 % (34.0-46.0); HGB 13.2 gm/dL (11.4-16.0); Hypochromasia Marked; MCH 37.4 pg (25.0-35.0); MCHC 31.3 g/dL (31.0-37.0); MCV 119.6 fL (80.0-100.0); Macrocytosis Marked; Mean Platelet Volume 9.5; Platelet Count 197 k/uL (150-450); RBC 3.53 m/uL (3.80-5.40); RDW 17.8 % (11.5-15.5); WBC 9.4 k/uL (3.8-10.6)
[2025-01-16 10:02] LABS: Basophils % (A) 0 %; Eosinophils # (A) 0.1 k/uL (0-0.7); Eosinophils % (A) 1 %; Lymphocytes # (A) 1.2 k/uL (1.0-4.8); Lymphocytes % (A) 15 %; Monocytes # (A) 0.7 k/uL (0-1.0); Monocytes % (A) 8 %; Neutrophils # (A) 5.9 k/uL (1.3-7.7); Neutrophils % (A) 74 %
--- NOTE | 2025-01-16 12:02 | P.PN ---
Subjective Progress Note Date: 01/16/25 Principal diagnosis: Acute hypoxic respiratory failure secondary to acute systolic congestive heart failure COPD and cardiac arrest/ventricular tachycardia/torsade This is a 64-year-old female patient with a known history of chronic obstructive pulmonary disease, chronic and ongoing tobacco dependence, hypertension, depression, occasional alcohol use who presented here early this morning after a 2 to 3-day history of increasing shortness of breath. Productive cough with whi te sputum. No fever or chills. She was found to be quite hypoxemic and placed on BiPAP 14/5 and 50% FiO2. Chest x-ray reveals bilateral pleural effusions with increased lung markings and evidence of chronic lung disease. She was also very hypertensive with presenting blood pressure of 153/113. White count 10.1. Hemoglobin 13.1. Platelets 210. Sodium 138. Potassium 3.5. Bicarb 21. BUN 9. Creatinine 0.58. Glucose 126. proBNP 2600. AST 87. ALT 53. Alk phos 240. Viral screen negative. She is seen today in consultation in the emergency department. She remains on BiPAP. She is awake and alert. She is feeling a bit better since she came in. She is started on a nitroglycerin drip at 20 mcg/min. Blood pressure improving. She denies any previous cardiac disease. EKG reveals sinus tachycardia with no significant ST or T wave abnormalities. Echocardiogram reveals severely impaired left ventricular systolic function with an ejection fraction of 30 to 35%. Akinetic septum. Moderate to severe mitral regurgitation. Moderate aortic regurgitation. Patient was seen today on 01/15/2025, patient was admitted yesterday from the ER to ICU shortly after she sustained an episode of ventricular tachycardia/cardiac arrest/torsades patient had CPR, 10 compressions were given during the CPR, patient was bolused with amiodarone, then she was admitted to the ICU on amiodarone drip. Patient did not require intubation, her amiodarone drip remains at 0.5 mg/min, her IV fluids at KVO remains on Lasix 40 mg IV push every 12 hours echocardiogram showed severe LV dysfunction with ejection fraction of 30 to 35%. Today the patient is on 2 L nasal cannula yesterday she was on BiPAP 14/5/35%. Overall the patient is stable today, but she clearly needs to be monitored in the ICU, and cardiology has already evaluated the patient. WBC count today is 10.6 hemoglobin is 12 electrolytes are normal renal profile is normal bicarb is 34, troponin is 0.049. Yesterday's troponin was 0.068 chest x- ray continues to show evidence of pulmonary edema possible right lower lobe atelectasis/consolidation, however her procalcitonin level is 0.07. Patient did receive ceftriaxone and Zithromax in the ER, but considering a normal procalcitonin level, will hold antibiotics for now. Patient was evaluated today in the ICU, remains on amiodarone at 1 mg/min, patient had another episode of nonsustained ventricular tachycardia at 2130 patient is now in A-fib with RVR. Cardiology increased amiodarone drip, in the meantime patient seems to be comfortable, she underwent cardiac catheterization and it was negative for coronary artery disease. Chest x-ray is showing improvement in her interstitial edema she has right basilar atelectasis, no clear-cut evidence of pneumonia. Patient remains on diuretics. WBC count today is 9.4 hemoglobin 13.2, basic metabolic profile is normal C-reactive protein is 3.5 Objective - Vital Signs Vital signs: Vital Signs Temp 97.7 F 01/16/25 08:00 Pulse 126 H 01/16/25 11:00 Resp 14 01/16/25 11:00 BP 100/76 01/16/25 11:00 Pulse Ox 97 01/16/25 11:00 FiO2 35 01/14/25 14:30 Intake & Output 01/15/25 01/16/25 01/16/25 18:59 06:59 18:59 Intake Total 982.783 720 820 Output Total 1350 2050 1000 Balance -367.217 -1330 -180 Weight 73.1 kg 73.1 kg Intake: IV 320 220 120 Sodium Chloride 0.9% 1, 220 220 120 000 ml @ 20 mls/hr IV . Q24H [facility] Rx#:[id number] Intake, IV Titration 262.783 100 Amount Amiodarone 450 mg In 242.783 Dextrose 5% in Water 250 ml @ 0.5 MG/MIN 16.667 mls/hr IV .Q15H [facility] Rx#: [id number] Magnesium Sulfate-D5w Pmx 100 1 gm In Dextrose/Water 1 100ml.bag @ 100 mls/hr IVPB ONCE ONE Rx#: [id number] Sodium Chloride 0.9% 1, 20 000 ml @ 20 mls/hr IV . Q24H [facility] Rx#:[id number] Oral 400 400 700 Output: Urine 1350 2050 1000 Other: Voiding Method External Catheter External Catheter External Catheter # Bowel Movements 1 1 1 - Exam GENERAL EXAM: Revealed a 64-year-old female in no distress, on room air. HEAD: Normocephalic. EYES: Normal reaction of pupils, equal size. NOSE: Clear with pink turbinates. THROAT: No erythema or exudates. NECK: No masses, no JVD. CHEST: No chest wall deformity. LUNGS: Minimal crackles at the bases no rhonchi no wheezes CVS: S1 and S2 normal with an audible murmur, irregular rhythm ABDOMEN: No hepatosplenomegaly, normal bowel sounds, no guarding or rigidity. SKIN: No rashes CENTRAL NERVOUS SYSTEM: Alert and oriented x 3 no gross focal deficit EXTREMITIES: There is trace peripheral edema. No clubbing, no cyanosis. Peripheral pulses are intact. - Labs CBC & Chem 7: 01/16/25 08:51 01/16/25 05:05 Labs: Abnormal Lab Results - Last 24 Hours (Table) 01/15/25 01/15/25 01/15/25 Range/Units 12:56 21:40 21:50 WBC 10.8 H (3.8-10.6) k/uL RBC 3.47 L (3.80-5.40) m/uL MCV 119.5 H (80.0-100.0) fL MCH 36.4 H (25.0-35.0) pg MCHC 30.5 L (31.0-37.0) g/dL RDW 17.8 H (11.5-15.5) % Neutrophils # 8.0 H (1.3-7.7) k/uL Macrocytosis Marked A D-Dimer (<0.60) mg/L FEU Sodium (137-145) mmol/L Potassium (3.5-5.1) mmol/L Chloride (98-107) mmol/L Carbon Dioxide (22-30) mmol/L Glucose (74-99) mg/dL POC Glucose (mg/dL) 120 H (70-110) mg/dL Magnesium (1.6-2.3) mg/dL Troponin I 0.049 H* (0.000-0.034) ng/mL C-Reactive Protein (<1.0) mg/dL 01/15/25 01/16/25 01/16/25 Range/Units 23:00 05:05 05:05 WBC (3.8-10.6) k/uL RBC 3.50 L (3.80-5.40) m/uL MCV 118.4 H (80.0-100.0) fL MCH 36.4 H (25.0-35.0) pg MCHC 30.7 L (31.0-37.0) g/dL RDW 17.5 H (11.5-15.5) % Neutrophils # (1.3-7.7) k/uL Macrocytosis Marked A D-Dimer (<0.60) mg/L FEU Sodium 135 L 135 L (137-145) mmol/L Potassium 3.4 L (3.5-5.1) mmol/L Chloride 95 L 93 L (98-107) mmol/L Carbon Dioxide 33 H 36 H (22-30) mmol/L Glucose 101 H (74-99) mg/dL POC Glucose (mg/dL) (70-110) mg/dL Magnesium 2.4 H (1.6-2.3) mg/dL Troponin I (0.000-0.034) ng/mL C-Reactive Protein (<1.0) mg/dL 01/16/25 01/16/25 01/16/25 Range/Units 08:51 08:51 08:51 WBC (3.8-10.6) k/uL RBC 3.53 L (3.80-5.40) m/uL MCV 119.6 H (80.0-100.0) fL MCH 37.4 H (25.0-35.0) pg MCHC (31.0-37.0) g/dL RDW 17.8 H (11.5-15.5) % Neutrophils # (1.3-7.7) k/uL Macrocytosis Marked A D-Dimer 0.70 H (<0.60) mg/L FEU Sodium (137-145) mmol/L Potassium (3.5-5.1) mmol/L Chloride (98-107) mmol/L Carbon Dioxide (22-30) mmol/L Glucose (74-99) mg/dL POC Glucose (mg/dL) (70-110) mg/dL Magnesium (1.6-2.3) mg/dL Troponin I (0.000-0.034) ng/mL C-Reactive Protein 3.5 H (<1.0) mg/dL Microbiology - Last 24 Hours (Table) 01/14/25 06:20 Blood Culture - Preliminary Blood Assessment and Plan Assessment: Impression: Cardiac arrest/ventricular tachycardia/torsade, patient required very brief CPR Recurrent ventricular tachycardia/nonsustained Acute hypoxemic respiratory failure secondary to an acute exacerbation of systolic congestive heart failure, COPD exacerbation, valvular heart disease, and secondary to ventricular tachycardia Acute exacerbation of chronic obstructive pulmonary disease, improving Hypertensive urgency, currently on nitroglycerin drip at 20 mcg/min Nonischemic cardiomyopathy and LV dysfunction Moderate to severe mitral regurgitation Moderate aortic regurgitation Chronic and ongoing tobacco dependence of 40 years History of hypertension History of depression History of chronic back pain Recommendation: Continue to monitor in the ICU Continue amiodarone Cardiac cath report was reviewed Continue Lasix Hold on bronchodilators/beta agonist for now Continue GI and DVT prophylaxis Will continue to follow Time with Patient: Less than 30
[2025-01-16 15:15] LABS: Erythrocyte Sedimentation Rate 10 mm/Hr (0-30)
--- NOTE | 2025-01-16 20:49 | P.PN ---
Subjective Progress Note Date: 01/16/25 This is a 64-year-old female medical history significant for asthma, COPD, acid reflux, anxiety, chronic nicotine use. Patient has been to the hospital with complaints of shortness of breath over the last 24 hours states that she is unable to catch her breath. Patient is evaluated in the ER currently on BiPAP. she is currently denying any chest discomfort states that she has not been having any fever or chills denies any nausea vomiting or diarrhea. Patient does admit to smoking 1 pack of cigarettes per day for the last 40 years. Occasional alcohol use. On admission white blood cell count is 10.1, hemoglobin of 13.1, sodium 138, BUN is 9 creatinine 0.58 glucose of 126, AST 87, ALT of 53 alk phos of 240. Her troponin level was initially found to be negative at 0.020, with mildly elevated proBNP of 2600. Patient's viral panel was negative for influenza, RSV, COVID. Chest x-ray completed in the ER reveals bilateral pleural effusions with adjacent atelectasis and pneumonia not excluded. There is hyperinflation of the lungs. Patient admitted to the hospital with a consult placed to pulmonology for the acute COPD exacerbation. She is currently on BiPAP settings of 14/5 with 50% FiO2 during my evaluation. States that she does not follow with a rn picu. Patient has not admit to history of COPD however is on a combination inhaler on an outpatient basis. Patient reports no prior history of congestive heart failure does not history of high blood pressure. Her echocardiogram comes back revealing ejection fraction of 40 to 45% with moderate pulmonary hypertension. Akinetic septum. Moderate to severe mitral regurgitation and moderate aortic regurgitation. Because of these findings cardiology was consulted due to the new cardiomyopathy. Patient appears to be volume overload state was started on IV Lasix 40 mg every 12 hours while in the ER. She also was started on a nitroglycerin drip after receiving nitroglycerin as a bolus by the ER physician secondary to dyspnea hypertension diaphoresis and tachycardia. She appears to be resting comfortably at the time of my evaluation. Is currently pending a bed on the medical floor. 01/15/2025 Is evaluated today in the intensive care unit. While in the ER yesterday pending a bed on the medical floor patient had an episode of V-fib requiring CPR and was given amiodarone bolus has been started on IV amiodarone running at half rate now. Patient is currently in normal sinus rhythm controlled heart rate. She continues on 40 mg of IV Lasix every 12 hours. Patient will be going for a cardiac catheterization. She states that her breathing is significantly improved as compared to yesterday. Station weight blood cell count of 10.6, hemoglobin 12.0, sodium of 137, potassium 3.4, BUN of 8 creatinine of 0.51, felt troponin level is 0.049. Her LFTs are slightly improved at AST 53 ALT 44 alk phos 174. 01/16/2025 Patient is evaluated today in follow up in the intensive care unit. Continues on IV amiodarone. Currently in atrial fibrillation with rapid ventricular rate. Remains on IV heparin. Patient underwent cardiac catheterization yesterday with findings of normal coronaries, there is elevated left sided filling pressures. LV EF 35% with mild anterior and mild inferior hypokinesis with preservation of the apex and base may be related to myocarditis versus atypical tak[place]o. Patient remains on IV lasix 40 mg Q12 hour. Chest xray today reveals persistent CHF fluid overload state. Possible underlying right lower lobe pneumonic infiltrate. REVIEW OF SYSTEMS: CONSTITUTIONAL: No fever, no malaise, no fatigue. HEENT: No recent visual problems or hearing problems. Denied any sore throat. CARDIOVASCULAR: No chest pain, orthopnea, PND, no palpitations, no syncope. PULMONARY: Reports shortness of breath, no cough, no hemoptysis. GASTROINTESTINAL: No diarrhea, no nausea, no vomiting, no abdominal pain. NEUROLOGICAL: No headaches, no weakness, no numbness. PHYSICAL EXAMINATION: GENERAL: The patient is alert and oriented x3, not in any acute distress. Well developed, well nourished. on 3L of oxygen via nasal cannula HEENT: Pupils are round and equally reacting to light. EOMI. No scleral icterus. No conjunctival pallor. Normocephalic, atraumatic. No pharyngeal erythema. No thyromegaly. CARDIOVASCULAR: S1 and S2 present. No murmurs, rubs, or gallops. PULMONARY: Faint scattered wheezing ABDOMEN: Soft, nontender, nondistended, normoactive bowel sounds. No palpable organomegaly. MUSCULOSKELETAL: No joint swelling or deformity. EXTREMITIES: No cyanosis, clubbing, or pedal edema. NEUROLOGICAL: Gross neurological examination did not reveal any focal deficits. SKIN: No rashes. 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; with an ejection fraction found to be 30 to 35% Episode x2 of polymorphic vtach with QT prolongation; currently on IV amiodarone New onset paroxysmal atrial fibrillation moderate pulmonary hypertension, moderate to severe mitral regurgitation Troponin elevation from nonSTEMI Tachycardia and hypertension with urgency responded to nitroglycerin History of hypertension History of COPD with mild acute exacerbation History of asthma Gastroesophageal reflux disease History of anxiety Chronic and ongoing nicotine use patient is a 1 pack per day smoker transaminitis likely due to volume overload state GI prophylaxis DVT prophylaxis Plan Nitroglycerin has been discontinued Continues on IV amiodarone Continue IV lasix 40 mg Q12 hour and strict intake and output monitoring Continue updrafts QID QT prolongation medications have been discontinued ESR normal and mild elevation of CRP. Procalcitonin level normal 0.07 Pulmonary consultation Consult cardiology Monitor electrolytes and renal function The impression and plan of care has been dictated by Kaye Grant, Nurse Practitioner as directed. Dr. Pascual MD I have performed a history and physical examination and medical decision making of this patient, discussed the same with the dictator, and agree with the dictators assessment and plan as written, documented as a scribe. Based on total visit time, I have performed more than 50% of this visit. Objective - Vital Signs Vital signs: Vital Signs Temp 97.7 F 01/16/25 08:00 Pulse 118 H 01/16/25 19:00 Resp 16 01/16/25 19:00 BP 93/78 01/16/25 19:00 Pulse Ox 95 01/16/25 19:00 FiO2 35 01/14/25 14:30 Intake & Output 01/16/25 01/16/25 01/17/25 06:59 18:59 06:59 Intake Total 720 960 Output Total 2049 1300 Balance -1330 -340 Weight 73.1 kg Intake: IV 220 260 Sodium Chloride 0.9% 1, 220 260 000 ml @ 20 mls/hr IV . Q24H [facility] Rx#:[id number] Intake, IV Titration 100 Amount Magnesium Sulfate-D5w Pmx 100 1 gm In Dextrose/Water 1 100ml.bag @ 100 mls/hr IVPB ONCE ONE Rx#: [id number] Oral 400 700 Output: Urine 2050 1300 Other: Voiding Method External Catheter External Catheter # Bowel Movements 1 1 - Labs CBC & Chem 7: 01/16/25 08:51 01/16/25 05:05 Labs: Abnormal Lab Results - Last 24 Hours (Table) 01/15/25 01/15/25 01/15/25 Range/Units 21:40 21:50 23:00 WBC 10.8 H (3.8-10.6) k/uL RBC 3.47 L (3.80-5.40) m/uL MCV 119.5 H (80.0-100.0) fL MCH 36.4 H (25.0-35.0) pg MCHC 30.5 L (31.0-37.0) g/dL RDW 17.8 H (11.5-15.5) % Neutrophils # 8.0 H (1.3-7.7) k/uL Macrocytosis Marked A APTT (22.0-30.0) sec D-Dimer (<0.60) mg/L FEU Sodium 135 L (137-145) mmol/L Potassium 3.4 L (3.5-5.1) mmol/L Chloride 95 L (98-107) mmol/L Carbon Dioxide 33 H (22-30) mmol/L Glucose 101 H (74-99) mg/dL POC Glucose (mg/dL) 120 H (70-110) mg/dL Magnesium (1.6-2.3) mg/dL C-Reactive Protein (<1.0) mg/dL Vitamin B12 (200.0-944.0) pg/mL 01/16/25 01/16/25 01/16/25 Range/Units 05:05 05:05 05:05 WBC (3.8-10.6) k/uL RBC 3.50 L (3.80-5.40) m/uL MCV 118.4 H (80.0-100.0) fL MCH 36.4 H (25.0-35.0) pg MCHC 30.7 L (31.0-37.0) g/dL RDW 17.5 H (11.5-15.5) % Neutrophils # (1.3-7.7) k/uL Macrocytosis Marked A APTT (22.0-30.0) sec D-Dimer (<0.60) mg/L FEU Sodium 135 L (137-145) mmol/L Potassium (3.5-5.1) mmol/L Chloride 93 L (98-107) mmol/L Carbon Dioxide 36 H (22-30) mmol/L Glucose (74-99) mg/dL POC Glucose (mg/dL) (70-110) mg/dL Magnesium 2.4 H (1.6-2.3) mg/dL C-Reactive Protein (<1.0) mg/dL Vitamin B12 2012.0 H (200.0-944.0) pg/mL 01/16/25 01/16/25 01/16/25 Range/Units 08:51 08:51 08:51 WBC (3.8-10.6) k/uL RBC 3.53 L (3.80-5.40) m/uL MCV 119.6 H (80.0-100.0) fL MCH 37.4 H (25.0-35.0) pg MCHC (31.0-37.0) g/dL RDW 17.8 H (11.5-15.5) % Neutrophils # (1.3-7.7) k/uL Macrocytosis Marked A APTT (22.0-30.0) sec D-Dimer 0.70 H (<0.60) mg/L FEU Sodium (137-145) mmol/L Potassium (3.5-5.1) mmol/L Chloride (98-107) mmol/L Carbon Dioxide (22-30) mmol/L Glucose (74-99) mg/dL POC Glucose (mg/dL) (70-110) mg/dL Magnesium (1.6-2.3) mg/dL C-Reactive Protein 3.5 H (<1.0) mg/dL Vitamin B12 (200.0-944.0) pg/mL 01/16/25 Range/Units 15:09 WBC (3.8-10.6) k/uL RBC (3.80-5.40) m/uL MCV (80.0-100.0) fL MCH (25.0-35.0) pg MCHC (31.0-37.0) g/dL RDW (11.5-15.5) % Neutrophils # (1.3-7.7) k/uL Macrocytosis APTT 40.8 H (22.0-30.0) sec D-Dimer (<0.60) mg/L FEU Sodium (137-145) mmol/L Potassium (3.5-5.1) mmol/L Chloride (98-107) mmol/L Carbon Dioxide (22-30) mmol/L Glucose (74-99) mg/dL POC Glucose (mg/dL) (70-110) mg/dL Magnesium (1.6-2.3) mg/dL C-Reactive Protein (<1.0) mg/dL Vitamin B12 (200.0-944.0) pg/mL Microbiology - Last 24 Hours (Table) 01/14/25 06:20 Blood Culture - Preliminary Blood Assessment and Plan Time with Patient: Less than 30
[2025-01-17 00:07] LABS: Glucose,Whole Blood 134 mg/dL (70-110)
[2025-01-17 03:14] LABS: Anisocytosis Slight; Basophils % (A) 0 %; Eosinophils # (A) 0.2 k/uL (0-0.7); Eosinophils % (A) 1 %; HCT 42.5 % (34.0-46.0); HGB 13.3 gm/dL (11.4-16.0); Hypochromasia Moderate; Lymphocytes # (A) 1.7 k/uL (1.0-4.8); Lymphocytes % (A) 13 %; MCH 36.8 pg (25.0-35.0); MCHC 31.3 g/dL (31.0-37.0); MCV 117.6 fL (80.0-100.0); Mean Platelet Volume 9.3; Monocytes % (A) 7 %; Neutrophils # (A) 10.3 k/uL (1.3-7.7); Neutrophils % (A) 77 %; Platelet Count 216 k/uL (150-450); RBC 3.62 m/uL (3.80-5.40); RDW 17.1 % (11.5-15.5); WBC 13.4 k/uL (3.8-10.6)
[2025-01-17 03:24] LABS: Macrocytosis Marked
[2025-01-17 03:30] LABS: African American GFR (CKD) >90 (>60 ml/min/1.73 sqM); Anion Gap 5 mmol/L; Blood Urea Nitrogen 10 mg/dL (7-17); Calcium 8.7 mg/dL (8.4-10.2); Carbon Dioxide 36 mmol/L (22-30); Chloride 93 mmol/L (98-107); Glucose 113 mg/dL (74-99); Non-African American GFR(CKD) >90 (>60 ml/min/1.73 sqM); Potassium 3.9 mmol/L (3.5-5.1); Sodium 134 mmol/L (137-145)
[2025-01-17 03:44] LABS: INR 1.1 (<1.2); Prothrombin Time 11.5 sec (10.0-12.5)
[2025-01-17] MEDS: POTASSIUM BICARBONATE/CIT AC 20 MEQ TABLET.EFF NG-TUBE SCH (05:51)
[2025-01-17] MEDS: NOREPINEPHRINE 4 MG in SODIUM CHLORIDE 0.9% 250 ML IV SCH (05:54)
[2025-01-17] MEDS: HEPARIN SODIUM 1,000 UN/ML (10ML VL) IV PRN (07:04)
[2025-01-17] MEDS ORDERED: ZINC OXIDE PASTE (Z-GUARD) 1 APPLIC TOPICAL PRN (08:00)
--- NOTE | 2025-01-17 13:10 | P.PN ---
Subjective Progress Note Date: 01/17/25 Principal diagnosis: Acute hypoxic respiratory failure secondary to acute systolic congestive heart failure COPD and cardiac arrest/ventricular tachycardia/torsade This is a 64-year-old female patient with a known history of chronic obstructive pulmonary disease, chronic and ongoing tobacco dependence, hypertension, depression, occasional alcohol use who presented here early this morning after a 2 to 3-day history of increasing shortness of breath. Productive cough with whi te sputum. No fever or chills. She was found to be quite hypoxemic and placed on BiPAP 14/5 and 50% FiO2. Chest x-ray reveals bilateral pleural effusions with increased lung markings and evidence of chronic lung disease. She was also very hypertensive with presenting blood pressure of 153/113. White count 10.1. Hemoglobin 13.1. Platelets 210. Sodium 138. Potassium 3.5. Bicarb 21. BUN 9. Creatinine 0.58. Glucose 126. proBNP 2600. AST 87. ALT 53. Alk phos 240. Viral screen negative. She is seen today in consultation in the emergency department. She remains on BiPAP. She is awake and alert. She is feeling a bit better since she came in. She is started on a nitroglycerin drip at 20 mcg/min. Blood pressure improving. She denies any previous cardiac disease. EKG reveals sinus tachycardia with no significant ST or T wave abnormalities. Echocardiogram reveals severely impaired left ventricular systolic function with an ejection fraction of 30 to 35%. Akinetic septum. Moderate to severe mitral regurgitation. Moderate aortic regurgitation. Patient was seen today on 01/15/2025, patient was admitted yesterday from the ER to ICU shortly after she sustained an episode of ventricular tachycardia/cardiac arrest/torsades patient had CPR, 10 compressions were given during the CPR, patient was bolused with amiodarone, then she was admitted to the ICU on amiodarone drip. Patient did not require intubation, her amiodarone drip remains at 0.5 mg/min, her IV fluids at KVO remains on Lasix 40 mg IV push every 12 hours echocardiogram showed severe LV dysfunction with ejection fraction of 30 to 35%. Today the patient is on 2 L nasal cannula yesterday she was on BiPAP 14/5/35%. Overall the patient is stable today, but she clearly needs to be monitored in the ICU, and cardiology has already evaluated the patient. WBC count today is 10.6 hemoglobin is 12 electrolytes are normal renal profile is normal bicarb is 34, troponin is 0.049. Yesterday's troponin was 0.068 chest x- ray continues to show evidence of pulmonary edema possible right lower lobe atelectasis/consolidation, however her procalcitonin level is 0.07. Patient did receive ceftriaxone and Zithromax in the ER, but considering a normal procalcitonin level, will hold antibiotics for now. Patient was evaluated today in the ICU, remains on amiodarone at 1 mg/min, patient had another episode of nonsustained ventricular tachycardia at 2130 patient is now in A-fib with RVR. Cardiology increased amiodarone drip, in the meantime patient seems to be comfortable, she underwent cardiac catheterization and it was negative for coronary artery disease. Chest x-ray is showing improvement in her interstitial edema she has right basilar atelectasis, no clear-cut evidence of pneumonia. Patient remains on diuretics. WBC count today is 9.4 hemoglobin 13.2, basic metabolic profile is normal C-reactive protein is 3.5 Patient was seen today on 01/17/2025, remains in the ICU, on 3 L nasal cannula, remains on amiodarone at 0.5 mg/min, remains on heparin, norepinephrine is presently on hold, patient remains on Lasix 40 mg IV push every 12 hours, patient was found to have nonischemic cardiomyopathy with ejection fraction of 30 to 35%. Her cardiac catheterization showed no significant findings. No ventricular tachycardia noted overnight, cardiology is addressing her cardiomyopathy and the patient could be considered for transfer out of the ICU to a monitored bed and selective if cleared by cardiology. Overall cardiac status is marginal considering the multiple episodes of ventricular tachycardia that this patient had. Again in the meantime she is on amiodarone. Objective - Vital Signs Vital signs: Vital Signs Temp 98.5 F 01/17/25 08:30 Pulse 125 H 01/17/25 11:00 Resp 18 01/17/25 11:00 BP 95/75 01/17/25 11:00 Pulse Ox 95 01/17/25 11:00 FiO2 35 01/14/25 14:30 Intake & Output 01/16/25 01/17/25 01/17/25 18:59 06:59 18:59 Intake Total 960 651.615 153.217 Output Total 1300 1300 1275 Balance -340 -648.385 -1121.783 Weight 73.6 kg Intake: IV 260 220 100 Sodium Chloride 0.9% 1, 260 220 100 000 ml @ 20 mls/hr IV . Q24H [facility] Rx#:[id number] Intake, IV Titration 431.615 53.217 Amount Amiodarone 450 mg In 243.894 Dextrose 5% in Water 250 ml @ 0.5 MG/MIN 16.667 mls/hr IV .Q15H [facility] Rx#: [id number] Heparin Sod,Pork in 0.45% 187.721 53.217 NaCl 25,000 unit In 0.45 % NaCl 1 250ml.bag @ 12 UNITS/KG/HR 8.772 mls/hr IV .Q24H [facility] Rx#: [id number] Oral 700 Output: Urine 1300 1300 1275 Other: Voiding Method External Catheter External Catheter # Bowel Movements 1 - Exam GENERAL EXAM: Revealed a 64-year-old female in no distress, on 3 L nasal cannula HEAD: Normocephalic. EYES: Normal reaction of pupils, equal size. NOSE: Clear with pink turbinates. THROAT: No erythema or exudates. NECK: No masses, no JVD. CHEST: No chest wall deformity. LUNGS: Minimal crackles at the bases no rhonchi no wheezes CVS: S1 and S2 normal with an audible murmur, irregular rhythm ABDOMEN: No hepatosplenomegaly, normal bowel sounds, no guarding or rigidity. SKIN: No rashes CENTRAL NERVOUS SYSTEM: Alert and oriented x 3 no gross focal deficit EXTREMITIES: There is trace peripheral edema. No clubbing, no cyanosis. Peripheral pulses are intact. - Labs CBC & Chem 7: 01/17/25 02:55 01/17/25 02:55 Labs: Abnormal Lab Results - Last 24 Hours (Table) 01/16/25 01/16/25 01/17/25 Range/Units 05:05 15:09 00:06 WBC (3.8-10.6) k/uL RBC (3.80-5.40) m/uL MCV (80.0-100.0) fL MCH (25.0-35.0) pg RDW (11.5-15.5) % Neutrophils # (1.3-7.7) k/uL Macrocytosis APTT 40.8 H (22.0-30.0) sec Sodium (137-145) mmol/L Chloride (98-107) mmol/L Carbon Dioxide (22-30) mmol/L Glucose (74-99) mg/dL POC Glucose (mg/dL) 134 H (70-110) mg/dL Vitamin B12 2012.0 H (200.0-944.0) pg/mL 01/17/25 01/17/25 01/17/25 Range/Units 02:55 02:55 05:41 WBC 13.4 H (3.8-10.6) k/uL RBC 3.62 L (3.80-5.40) m/uL MCV 117.6 H (80.0-100.0) fL MCH 36.8 H (25.0-35.0) pg RDW 17.1 H (11.5-15.5) % Neutrophils # 10.3 H (1.3-7.7) k/uL Macrocytosis Marked A APTT 33.1 H (22.0-30.0) sec Sodium 134 L (137-145) mmol/L Chloride 93 L (98-107) mmol/L Carbon Dioxide 36 H (22-30) mmol/L Glucose 113 H (74-99) mg/dL POC Glucose (mg/dL) (70-110) mg/dL Vitamin B12 (200.0-944.0) pg/mL Microbiology - Last 24 Hours (Table) 01/14/25 06:20 Blood Culture - Preliminary Blood Assessment and Plan Assessment: Impression: Cardiac arrest/ventricular tachycardia/torsade, patient required very brief CPR Recurrent ventricular tachycardia/nonsustained Acute hypoxemic respiratory failure secondary to an acute exacerbation of systolic congestive heart failure, COPD exacerbation, valvular heart disease, and secondary to ventricular tachycardia Acute exacerbation of chronic obstructive pulmonary disease, improving Hypertensive urgency, currently on nitroglycerin drip at 20 mcg/min Nonischemic cardiomyopathy and LV dysfunction Moderate to severe mitral regurgitation Moderate aortic regurgitation Chronic and ongoing tobacco dependence of 40 years History of hypertension History of depression History of chronic back pain Recommendation: Continue to monitor in the ICU Continue amiodarone Continue heparin Cardiac cath report was reviewed Continue Lasix Continue to hold bronchodilators/beta agonists Continue GI and DVT prophylaxis Will continue to follow Time with Patient: Less than 30
[2025-01-17] MEDS: POTASSIUM CHLORIDE ER 20 MEQ TAB.ER PO SCH (14:38)
--- NOTE | 2025-01-17 14:46 | P.PN ---
Subjective Progress Note Date: 01/17/25 This is a 64-year-old female medical history significant for asthma, COPD, acid reflux, anxiety, chronic nicotine use. Patient has been to the hospital with complaints of shortness of breath over the last 24 hours states that she is unable to catch her breath. Patient is evaluated in the ER currently on BiPAP. she is currently denying any chest discomfort states that she has not been having any fever or chills denies any nausea vomiting or diarrhea. Patient does admit to smoking 1 pack of cigarettes per day for the last 40 years. Occasional alcohol use. On admission white blood cell count is 10.1, hemoglobin of 13.1, sodium 138, BUN is 9 creatinine 0.58 glucose of 126, AST 87, ALT of 53 alk phos of 240. Her troponin level was initially found to be negative at 0.020, with mildly elevated proBNP of 2600. Patient's viral panel was negative for influenza, RSV, COVID. Chest x-ray completed in the ER reveals bilateral pleural effusions with adjacent atelectasis and pneumonia not excluded. There is hyperinflation of the lungs. Patient admitted to the hospital with a consult placed to pulmonology for the acute COPD exacerbation. She is currently on BiPAP settings of 14/5 with 50% FiO2 during my evaluation. 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 Patient has not admit to history of COPD however is on a combination inhaler on an outpatient basis. Patient reports no prior history of congestive heart failure does not history of high blood pressure. Her echocardiogram comes back revealing ejection fraction of 40 to 45% with moderate pulmonary hypertension. Akinetic septum. Moderate to severe mitral regurgitation and moderate aortic regurgitation. Because of these findings cardiology was consulted due to the new cardiomyopathy. Patient appears to be volume overload state was started on IV Lasix 40 mg every 12 hours while in the ER. She also was started on a nitroglycerin drip after receiving nitroglycerin as a bolus by the ER physician secondary to dyspnea hypertension diaphoresis and tachycardia. She appears to be resting comfortably at the time of my evaluation. Is currently pending a bed on the medical floor. 01/15/2025 Is evaluated today in the intensive care unit. While in the ER yesterday pending a bed on the medical floor patient had an episode of V-fib requiring CPR and was given amiodarone bolus has been started on IV amiodarone running at half rate now. Patient is currently in normal sinus rhythm controlled heart rate. She continues on 40 mg of IV Lasix every 12 hours. Patient will be going for a cardiac catheterization. She states that her breathing is significantly improved as compared to yesterday. Station weight blood cell count of 10.6, hemoglobin 12.0, sodium of 137, potassium 3.4, BUN of 8 creatinine of 0.51, felt troponin level is 0.049. Her LFTs are slightly improved at AST 53 ALT 44 alk phos 174. 01/16/2025 Patient is evaluated today in follow up in the intensive care unit. Continues on IV amiodarone. Currently in atrial fibrillation with rapid ventricular rate. Remains on IV heparin. Patient underwent cardiac catheterization yesterday with findings of normal coronaries, there is elevated left sided filling pressures. LV EF 35% with mild anterior and mild inferior hypokinesis with preservation of the apex and base may be related to myocarditis versus atypical takutsubo. Patient remains on IV lasix 40 mg Q12 hour. Chest xray today reveals persistent CHF fluid overload state. Possible underlying right lower lobe pneumonic infiltrate. 01/17/2025 Patient is evaluated in follow-up in the intensive care unit. Patient continues on IV heparin, IV amiodarone has been discontinued. Heart rate remains elevated in the 120s. Patient remains in atrial fibrillation. Patient continues on IV lasix 40 mg Q12 hour. Patient has had significat urine output over the last 24 hours. Education provided however patient does need alot of reinforcement. Discussed smoking cessation. White blood cell count today 13.4, sodium 134, BUN 10, creatinine 0.56. REVIEW OF SYSTEMS: CONSTITUTIONAL: No fever, no malaise, no fatigue. HEENT: No recent visual problems or hearing problems. Denied any sore throat. CARDIOVASCULAR: No chest pain, orthopnea, PND, no palpitations, no syncope. PULMONARY: Reports shortness of breath, no cough, no hemoptysis. GASTROINTESTINAL: No diarrhea, no nausea, no vomiting, no abdominal pain. NEUROLOGICAL: No headaches, no weakness, no numbness. PHYSICAL EXAMINATION: GENERAL: The patient is alert and oriented x3, not in any acute distress. Well developed, well nourished. on 3L of oxygen via nasal cannula HEENT: Pupils are round and equally reacting to light. EOMI. No scleral icterus. No conjunctival pallor. Normocephalic, atraumatic. No pharyngeal erythema. No thyromegaly. CARDIOVASCULAR: S1 and S2 present. No murmurs, rubs, or gallops. PULMONARY: Faint scattered wheezing ABDOMEN: Soft, nontender, nondistended, normoactive bowel sounds. No palpable organomegaly. MUSCULOSKELETAL: No joint swelling or deformity. EXTREMITIES: No cyanosis, clubbing, or pedal edema. NEUROLOGICAL: Gross neurological examination did not reveal any focal deficits. SKIN: No rashes. 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; with an ejection fraction found to be 30 to 35% Episode x2 of polymorphic vtach with QT prolongation; currently on IV amiodarone New onset paroxysmal atrial fibrillation moderate pulmonary hypertension, moderate to severe mitral regurgitation Troponin elevation from nonSTEMI Tachycardia and hypertension with urgency responded to nitroglycerin History of hypertension History of COPD with mild acute exacerbation History of asthma Gastroesophageal reflux disease History of anxiety Chronic and ongoing nicotine use patient is a 1 pack per day smoker transaminitis likely due to volume overload state GI prophylaxis DVT prophylaxis Plan Nitroglycerin has been discontinued IV amiodarone discontinued Continue IV lasix 40 mg Q12 hour and strict intake and output monitoring Continue updrafts QID QT prolongation medications have been discontinued ESR normal and mild elevation of CRP. Procalcitonin level normal 0.07 Pulmonary and cardiology following Monitor electrolytes and renal function The impression and plan of care has been dictated by Kaye Grant Nurse Practitioner as directed. Dr. Pascual MD I have performed a history and physical examination and medical decision making of this patient, discussed the same with the dictator, and agree with the dictators assessment and plan as written, documented as a scribe. Based on total visit time, I have performed more than 50% of this visit. Objective - Vital Signs Vital signs: Vital Signs Temp 97.8 F 01/17/25 13:00 Pulse 121 H 01/17/25 14:00 Resp 24 01/17/25 14:00 BP 102/83 01/17/25 14:00 Pulse Ox 96 01/17/25 14:00 FiO2 35 01/14/25 14:30 Intake & Output 01/16/25 01/17/25 01/17/25 18:59 06:59 18:59 Intake Total 960 651.615 933.217 Output Total 1300 1300 1575 Balance -340 -648.385 -641.783 Weight 73.6 kg Intake: IV 260 220 160 Sodium Chloride 0.9% 1, 260 220 160 000 ml @ 20 mls/hr IV . Q24H [facility] Rx#:[id number] Intake, IV Titration 431.615 53.217 Amount Amiodarone 450 mg In 243.894 Dextrose 5% in Water 250 ml @ 0.5 MG/MIN 16.667 mls/hr IV .Q15H [facility] Rx#: [id number] Heparin Sod,Pork in 0.45% 187.721 53.217 NaCl 25,000 unit In 0.45 % NaCl 1 250ml.bag @ 12 UNITS/KG/HR 8.772 mls/hr IV .Q24H [facility] Rx#: [id number] Oral 700 720 Output: Urine 1300 1300 1575 Other: Voiding Method External Catheter External Catheter # Bowel Movements 1 - Labs CBC & Chem 7: 01/17/25 02:55 01/17/25 12:42 Labs: Abnormal Lab Results - Last 24 Hours (Table) 01/16/25 01/16/25 01/17/25 Range/Units 05:05 15:09 00:06 WBC (3.8-10.6) k/uL RBC (3.80-5.40) m/uL MCV (80.0-100.0) fL MCH (25.0-35.0) pg RDW (11.5-15.5) % Neutrophils # (1.3-7.7) k/uL Macrocytosis APTT 40.8 H (22.0-30.0) sec Sodium (137-145) mmol/L Chloride (98-107) mmol/L Carbon Dioxide (22-30) mmol/L Glucose (74-99) mg/dL POC Glucose (mg/dL) 134 H (70-110) mg/dL Vitamin B12 2012.0 H (200.0-944.0) pg/mL 01/17/25 01/17/25 01/17/25 Range/Units 02:55 02:55 05:41 WBC 13.4 H (3.8-10.6) k/uL RBC 3.62 L (3.80-5.40) m/uL MCV 117.6 H (80.0-100.0) fL MCH 36.8 H (25.0-35.0) pg RDW 17.1 H (11.5-15.5) % Neutrophils # 10.3 H (1.3-7.7) k/uL Macrocytosis Marked A APTT 33.1 H (22.0-30.0) sec Sodium 134 L (137-145) mmol/L Chloride 93 L (98-107) mmol/L Carbon Dioxide 36 H (22-30) mmol/L Glucose 113 H (74-99) mg/dL POC Glucose (mg/dL) (70-110) mg/dL Vitamin B12 (200.0-944.0) pg/mL 01/17/25 Range/Units 12:42 WBC (3.8-10.6) k/uL RBC (3.80-5.40) m/uL MCV (80.0-100.0) fL MCH (25.0-35.0) pg RDW (11.5-15.5) % Neutrophils # (1.3-7.7) k/uL Macrocytosis APTT 44.0 H (22.0-30.0) sec Sodium (137-145) mmol/L Chloride (98-107) mmol/L Carbon Dioxide (22-30) mmol/L Glucose (74-99) mg/dL POC Glucose (mg/dL) (70-110) mg/dL Vitamin B12 (200.0-944.0) pg/mL Microbiology - Last 24 Hours (Table) 01/14/25 06:20 Blood Culture - Preliminary Blood Assessment and Plan Time with Patient: Less than 30
--- NOTE | 2025-01-17 14:49 | P.PN ---
Subjective HISTORY OF PRESENTING ILLNESS This is a pleasant 64-year-old with past medical history significant for tobacco abuse, occasional alcohol use, COPD. 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 She states her has been having some recent fever, chills and cough and she developed a cough over the last 2 days with increasing shortness of breath. She has been having mild chest heaviness with some of these episodes. She has been feeling somewhat more anxious at times with the shortness of breath. She denies any actual fevers or chills. She presented to the emergency department and was having some increasing blood pressure and became tachycardic and therefore nitroglycerin was started. Blood test mildly abnormal with troponin 0.06. She was placed on oxygen. She had episode of polymorphic VT and patient does not recall this episode however apparently was unresponsive and received approximately 10 chest compressions and then came to. She has been having occasional nonsustained VT on telemetry. She was placed on amiodarone drip. Echocardiogram was performed which showed EF 30 to 35% with moderate to severe mitral regurgitation. She denies any significant lower extremity edema. She does smoke a pack per day, occasional alcohol use on the weekends and family history of CAD as well as heart failure, permanent pacemaker. 01/16 Patient seen and examined. Patient had another episode of polymorphic ventricular tachycardia for 24 beats which resolved on its own. Patient has been in atrial fibrillation since that time with heart rates in the 120s to 140s. Systolic blood pressure variable in the upper 70s to 90s. Denies any chest pain or pressure. Still mildly short of breath. She cannot really feel any of the A-fib. She was placed on metoprolol yesterday and tolerating. 01/17 Patient seen and examined. Inflammatory markers resulted with ESR 10 and a CRP of 3.5 and symptoms not entirely consistent with myocarditis. Family admits there has been increasing stress recently. There is no sudden cardiac in her family and no history herself of any syncope. Remains in A-fib with heart rates in the 120s. She remains on amiodarone drip at 0.5. No chest pain or pressure. Being diuresed with IV Lasix twice a day. PHYSICAL EXAMINATION Vital signs reviewed. CONSTITUTIONAL: No apparent distress. HEENT: Head is normocephalic. Pupils are equal, round. Sclerae anicteric. Mucous membranes of the mouth are moist. No JVD. No carotid bruit. CHEST EXAMINATION: Lungs are clear to auscultation. No chest wall tenderness is noted on palpation or with deep breathing. HEART EXAMINATION: Irregular rate and rhythm. S1, S2 heard. No murmurs, gallops or rub. ABDOMEN: Soft, nontender. Positive bowel sounds. EXTREMITIES: 2+ peripheral pulses, no lower extremity edema and no calf tenderness. NEUROLOGIC EXAMINATION: Patient is awake, alert and oriented x3. ASSESSMENT Polymorphic VT with brief chest compressions Non-STEMI Cardiomyopathy unclear ischemic versus nonischemic Moderate to severe mitral regurgitation Recent cough, shortness of breath questionable component of infectious etiology Paroxysmal atrial fibrillation, new onset Wall motion abnormalities with mid anterior and mid inferior hypokinesis. May be Takotsubo's variant versus myocarditis Shock, may be component of cardiogenic plus or minus sepsis QT prolongation Acute on chronic systolic heart failure PLAN: Wall motion abnormalities which may be consistent with Takotsubo's versus myocarditis. Some of her electrical instability may be related to myocarditis/Takotsubo's however continue with beta-erasto and amiodarone. Transition amiodarone over to 400 mg twice a day. Increase metoprolol from 12.5-25 twice a day. Transition from heparin drip to Eliquis. ESR/CRP not consistent with giant cell myocarditis and therefore no need for high-dose steroids. Blood pressures appear more stable. If remains in A-fib and uncontrolled may consider SHAJI cardioversion over the or Monday. Appears stable for transfer from ICU. Objective - Vital Signs Vital signs: Vital Signs Temp 97.8 F 01/17/25 13:00 Pulse 121 H 01/17/25 14:00 Resp 24 01/17/25 14:00 BP 102/83 01/17/25 14:00 Pulse Ox 96 01/17/25 14:00 FiO2 35 01/14/25 14:30 Intake & Output 01/16/25 01/17/25 01/17/25 18:59 06:59 18:59 Intake Total 960 651.615 933.217 Output Total 1300 1300 1575 Balance -695 -349.385 -871.783 Weight 73.6 kg Intake: IV 260 220 160 Sodium Chloride 0.9% 1, 260 220 160 000 ml @ 20 mls/hr IV . Q24H [facility] Rx#:[id number] Intake, IV Titration 431.615 53.217 Amount Amiodarone 450 mg In 243.894 Dextrose 5% in Water 250 ml @ 0.5 MG/MIN 16.667 mls/hr IV .Q15H [facility] Rx#: [id number] Heparin Sod,Pork in 0.45% 187.721 53.217 NaCl 25,000 unit In 0.45 % NaCl 1 250ml.bag @ 12 UNITS/KG/HR 8.772 mls/hr IV .Q24H [facility] Rx#: [id number] Oral 700 720 Output: Urine 1300 1300 1575 Other: Voiding Method External Catheter External Catheter # Bowel Movements 1 - Labs CBC & Chem 7: 01/17/25 02:55 01/17/25 12:42 Labs: Abnormal Lab Results - Last 24 Hours (Table) 01/16/25 01/16/25 01/17/25 Range/Units 05:05 15:09 00:06 WBC (3.8-10.6) k/uL RBC (3.80-5.40) m/uL MCV (80.0-100.0) fL MCH (25.0-35.0) pg RDW (11.5-15.5) % Neutrophils # (1.3-7.7) k/uL Macrocytosis APTT 40.8 H (22.0-30.0) sec Sodium (137-145) mmol/L Chloride (98-107) mmol/L Carbon Dioxide (22-30) mmol/L Glucose (74-99) mg/dL POC Glucose (mg/dL) 134 H (70-110) mg/dL Vitamin B12 2012.0 H (200.0-944.0) pg/mL 01/17/25 01/17/25 01/17/25 Range/Units 02:55 02:55 05:41 WBC 13.4 H (3.8-10.6) k/uL RBC 3.62 L (3.80-5.40) m/uL MCV 117.6 H (80.0-100.0) fL MCH 36.8 H (25.0-35.0) pg RDW 17.1 H (11.5-15.5) % Neutrophils # 10.3 H (1.3-7.7) k/uL Macrocytosis Marked A APTT 33.1 H (22.0-30.0) sec Sodium 134 L (137-145) mmol/L Chloride 93 L (98-107) mmol/L Carbon Dioxide 36 H (22-30) mmol/L Glucose 113 H (74-99) mg/dL POC Glucose (mg/dL) (70-110) mg/dL Vitamin B12 (200.0-944.0) pg/mL 01/17/25 Range/Units 12:42 WBC (3.8-10.6) k/uL RBC (3.80-5.40) m/uL MCV (80.0-100.0) fL MCH (25.0-35.0) pg RDW (11.5-15.5) % Neutrophils # (1.3-7.7) k/uL Macrocytosis APTT 44.0 H (22.0-30.0) sec Sodium (137-145) mmol/L Chloride (98-107) mmol/L Carbon Dioxide (22-30) mmol/L Glucose (74-99) mg/dL POC Glucose (mg/dL) (70-110) mg/dL Vitamin B12 (200.0-944.0) pg/mL Microbiology - Last 24 Hours (Table) 01/14/25 06:20 Blood Culture - Preliminary Blood
[2025-01-17] MEDS: APIXABAN 5 MG TAB PO SCH (16:52)
[2025-01-17] MEDS: AMIODARONE 200 MG TAB PO SCH (21:19)
[2025-01-17] MEDS: METOPROLOL TARTRATE 12.5 MG TAB PO SCH (21:19)
[2025-01-18 05:39] LABS: Anisocytosis Slight; Basophils % (A) 0 %; Eosinophils # (A) 0.1 k/uL (0-0.7); Eosinophils % (A) 1 %; HCT 46.7 % (34.0-46.0); HGB 14.3 gm/dL (11.4-16.0); Hypochromasia Slight; Lymphocytes # (A) 1.7 k/uL (1.0-4.8); Lymphocytes % (A) 17 %; MCH 36.1 pg (25.0-35.0); MCHC 30.7 g/dL (31.0-37.0); Macrocytosis Marked; Monocytes # (A) 0.8 k/uL (0-1.0); Monocytes % (A) 8 %; Neutrophils % (A) 71 %; Platelet Count 247 k/uL (150-450); RBC 3.97 m/uL (3.80-5.40); RDW 17.2 % (11.5-15.5); WBC 9.8 k/uL (3.8-10.6)
[2025-01-18 05:45] LABS: MCV 117.7 fL (80.0-100.0)
[2025-01-18 06:11] LABS: African American GFR (CKD) >90 (>60 ml/min/1.73 sqM); Anion Gap 4 mmol/L; Blood Urea Nitrogen 13 mg/dL (7-17); Calcium 9.2 mg/dL (8.4-10.2); Carbon Dioxide 37 mmol/L (22-30); Chloride 94 mmol/L (98-107); Glucose 94 mg/dL (74-99); Non-African American GFR(CKD) >90 (>60 ml/min/1.73 sqM); Sodium 135 mmol/L (137-145)
--- NOTE | 2025-01-18 13:07 | P.PN ---
Subjective Progress Note Date: 01/18/25 Principal diagnosis: Acute hypoxic respiratory failure secondary to acute systolic congestive heart failure COPD and cardiac arrest/ventricular tachycardia/torsade This is a 64-year-old female patient with a known history of chronic obstructive pulmonary disease, chronic and ongoing tobacco dependence, hypertension, depression, occasional alcohol use who presented here early this morning after a 2 to 3-day history of increasing shortness of breath. Productive cough with whi te sputum. No fever or chills. She was found to be quite hypoxemic and placed on BiPAP 14/5 and 50% FiO2. Chest x-ray reveals bilateral pleural effusions with increased lung markings and evidence of chronic lung disease. She was also very hypertensive with presenting blood pressure of 153/113. White count 10.1. Hemoglobin 13.1. Platelets 210. Sodium 138. Potassium 3.5. Bicarb 21. BUN 9. Creatinine 0.58. Glucose 126. proBNP 2600. AST 87. ALT 53. Alk phos 240. Viral screen negative. She is seen today in consultation in the emergency department. She remains on BiPAP. She is awake and alert. She is feeling a bit better since she came in. She is started on a nitroglycerin drip at 20 mcg/min. Blood pressure improving. She denies any previous cardiac disease. EKG reveals sinus tachycardia with no significant ST or T wave abnormalities. Echocardiogram reveals severely impaired left ventricular systolic function with an ejection fraction of 30 to 35%. Akinetic septum. Moderate to severe mitral regurgitation. Moderate aortic regurgitation. Patient was seen today on 01/15/2025, patient was admitted yesterday from the ER to ICU shortly after she sustained an episode of ventricular tachycardia/cardiac arrest/torsades patient had CPR, 10 compressions were given during the CPR, patient was bolused with amiodarone, then she was admitted to the ICU on amiodarone drip. Patient did not require intubation, her amiodarone drip remains at 0.5 mg/min, her IV fluids at KVO remains on Lasix 40 mg IV push every 12 hours echocardiogram showed severe LV dysfunction with ejection fraction of 30 to 35%. Today the patient is on 2 L nasal cannula yesterday she was on BiPAP 14/5/35%. Overall the patient is stable today, but she clearly needs to be monitored in the ICU, and cardiology has already evaluated the patient. WBC count today is 10.6 hemoglobin is 12 electrolytes are normal renal profile is normal bicarb is 34, troponin is 0.049. Yesterday's troponin was 0.068 chest x- ray continues to show evidence of pulmonary edema possible right lower lobe atelectasis/consolidation, however her procalcitonin level is 0.07. Patient did receive ceftriaxone and Zithromax in the ER, but considering a normal procalcitonin level, will hold antibiotics for now. Patient was evaluated today in the ICU, remains on amiodarone at 1 mg/min, patient had another episode of nonsustained ventricular tachycardia at 2130 patient is now in A-fib with RVR. Cardiology increased amiodarone drip, in the meantime patient seems to be comfortable, she underwent cardiac catheterization and it was negative for coronary artery disease. Chest x-ray is showing improvement in her interstitial edema she has right basilar atelectasis, no clear-cut evidence of pneumonia. Patient remains on diuretics. WBC count today is 9.4 hemoglobin 13.2, basic metabolic profile is normal C-reactive protein is 3.5 Patient was seen today on 01/17/2025, remains in the ICU, on 3 L nasal cannula, remains on amiodarone at 0.5 mg/min, remains on heparin, norepinephrine is presently on hold, patient remains on Lasix 40 mg IV push every 12 hours, patient was found to have nonischemic cardiomyopathy with ejection fraction of 30 to 35%. Her cardiac catheterization showed no significant findings. No ventricular tachycardia noted overnight, cardiology is addressing her cardiomyopathy and the patient could be considered for transfer out of the ICU to a monitored bed and selective if cleared by cardiology. Overall cardiac status is marginal considering the multiple episodes of ventricular tachycardia that this patient had. Again in the meantime she is on amiodarone. Patient was seen today on 01/18/2025, patient remains in the ICU, however I believe the patient could go to 3 S. once a bed is available. Patient had intermittent episodes of ventricular tachycardia/polymorphic, she has also nonischemic cardiomyopathy and moderate to severe mitral regurgitation, paroxysmal atrial fibrillation, and she has QT prolongation. Cardiology is thinking of possibly Takotsubo versus myocarditis, patient remains on beta- blockers and amiodarone, she will be transition to oral amiodarone 400 mg twice daily and metoprolol twice daily. Heparin was transitioned to Eliquis. Her laboratory studies did not show evidence of enough findings to suspect giant cell myocarditis as her sed rate is normal and her CRP is minimally elevated. Cardiology is considering possibly SHAJI cardioversion over the or Monday. Pulmonary finley the patient is doing well, she wants to go home, denies any shortness of breath, denies any chest pain, no fever no chills no hemoptysis. Labs are unremarkable including CBC and basic metabolic profile as well as renal profile. Objective - Vital Signs Vital signs: Vital Signs Temp 97.7 F 01/18/25 08:00 Pulse 70 01/18/25 12:00 Resp 15 01/18/25 12:00 BP 88/54 01/18/25 12:00 Pulse Ox 95 01/18/25 12:00 FiO2 35 01/14/25 14:30 Intake & Output 01/17/25 01/18/25 01/18/25 18:59 06:59 18:59 Intake Total 973.217 Output Total 1675 800 Balance -701.783 -800 Weight 71 kg Intake: IV 200 Sodium Chloride 0.9% 1, 200 000 ml @ 20 mls/hr IV . Q24H LAN Rx#:[id number] Intake, IV Titration 53.217 Amount Heparin Sod,Pork in 0.45% 53.217 NaCl 25,000 unit In 0.45 % NaCl 1 250ml.bag @ 12 UNITS/KG/HR 8.772 mls/hr IV .Q24H LAN Rx#: [id number] Oral 720 Output: Urine 1675 800 Other: Voiding Method External Catheter External Catheter # Voids 1 - Exam GENERAL EXAM: Revealed a 64-year-old female in no distress, on 2 L nasal cannula HEAD: Normocephalic. EYES: Normal reaction of pupils, equal size. NOSE: Clear with pink turbinates. THROAT: No erythema or exudates. NECK: No masses, no JVD. CHEST: No chest wall deformity. LUNGS: Minimal crackles at the bases no rhonchi no wheezes CVS: S1 and S2 normal with an audible murmur, irregular rhythm ABDOMEN: No hepatosplenomegaly, normal bowel sounds, no guarding or rigidity. SKIN: No rashes CENTRAL NERVOUS SYSTEM: Alert and oriented x 3 no gross focal deficit EXTREMITIES: There is trace peripheral edema. No clubbing, no cyanosis. Peripheral pulses are intact. - Labs CBC & Chem 7: 01/18/25 05:13 01/18/25 05:13 Labs: Abnormal Lab Results - Last 24 Hours (Table) 01/17/25 01/18/25 01/18/25 Range/Units 12:42 05:13 05:13 Hct 46.7 H (34.0-46.0) % MCV 117.7 H (80.0-100.0) fL MCH 36.1 H (25.0-35.0) pg MCHC 30.7 L (31.0-37.0) g/dL RDW 17.2 H (11.5-15.5) % Macrocytosis Marked A APTT 44.0 H (22.0-30.0) sec Sodium 135 L (137-145) mmol/L Chloride 94 L (98-107) mmol/L Carbon Dioxide 37 H (22-30) mmol/L Microbiology - Last 24 Hours (Table) 01/14/25 06:20 Blood Culture - Preliminary Blood Assessment and Plan Assessment: Impression: Cardiac arrest/ventricular tachycardia/torsade, patient required very brief CPR Recurrent ventricular tachycardia/nonsustained Acute hypoxemic respiratory failure secondary to an acute exacerbation of systolic congestive heart failure, COPD exacerbation, valvular heart disease, and secondary to ventricular tachycardia Acute exacerbation of chronic obstructive pulmonary disease, improving Hypertensive urgency, currently on nitroglycerin drip at 20 mcg/min Nonischemic cardiomyopathy and LV dysfunction Moderate to severe mitral regurgitation Moderate aortic regurgitation Chronic and ongoing tobacco dependence of 40 years History of hypertension History of depression History of chronic back pain Recommendation: Consider transferring the patient out of the ICU to a monitored bed once a bed is available Continue amiodarone and beta-blockers Continue Eliquis instead of heparin Continue Lasix Continue to hold bronchodilators/beta agonists Continue GI and DVT prophylaxis Will continue to follow Time with Patient: Less than 30
[2025-01-18 20:03] LABS: Glucose,Whole Blood 124 mg/dL (70-110)
--- NOTE | 2025-01-19 00:29 | P.PN ---
Subjective Progress Note Date: 01/18/25 This is a 64-year-old female medical history significant for asthma, COPD, acid reflux, anxiety, chronic nicotine use. Patient has been to the hospital with complaints of shortness of breath over the last 24 hours states that she is unable to catch her breath. Patient is evaluated in the ER currently on BiPAP. she is currently denying any chest discomfort states that she has not been having any fever or chills denies any nausea vomiting or diarrhea. Patient does admit to smoking 1 pack of cigarettes per day for the last 40 years. Occasional alcohol use. On admission white blood cell count is 10.1, hemoglobin of 13.1, sodium 138, BUN is 9 creatinine 0.58 glucose of 126, AST 87, ALT of 53 alk phos of 240. Her troponin level was initially found to be negative at 0.020, with mildly elevated proBNP of 2600. Patient's viral panel was negative for influenza, RSV, COVID. Chest x-ray completed in the ER reveals bilateral pleural effusions with adjacent atelectasis and pneumonia not excluded. There is hyperinflation of the lungs. Patient admitted to the hospital with a consult placed to pulmonology for the acute COPD exacerbation. She is currently on BiPAP settings of 14/5 with 50% FiO2 during my evaluation. States that she does not follow with a application development consultant. Patient has not admit to history of COPD however is on a combination inhaler on an outpatient basis. Patient reports no prior history of congestive heart failure does not history of high blood pressure. Her echocardiogram comes back revealing ejection fraction of 40 to 45% with moderate pulmonary hypertension. Akinetic septum. Moderate to severe mitral regurgitation and moderate aortic regurgitation. Because of these findings cardiology was consulted due to the new cardiomyopathy. Patient appears to be volume overload state was started on IV Lasix 40 mg every 12 hours while in the ER. She also was started on a nitroglycerin drip after receiving nitroglycerin as a bolus by the ER physician secondary to dyspnea hypertension diaphoresis and tachycardia. She appears to be resting comfortably at the time of my evaluation. Is currently pending a bed on the medical floor. 01/15/2025 Is evaluated today in the intensive care unit. While in the ER yesterday pending a bed on the medical floor patient had an episode of V-fib requiring CPR and was given amiodarone bolus has been started on IV amiodarone running at half rate now. Patient is currently in normal sinus rhythm controlled heart rate. She continues on 40 mg of IV Lasix every 12 hours. Patient will be going for a cardiac catheterization. She states that her breathing is significantly improved as compared to yesterday. Station weight blood cell count of 10.6, hemoglobin 12.0, sodium of 137, potassium 3.4, BUN of 8 creatinine of 0.51, felt troponin level is 0.049. Her LFTs are slightly improved at AST 53 ALT 44 alk phos 174. 01/16/2025 Patient is evaluated today in follow up in the intensive care unit. Continues on IV amiodarone. Currently in atrial fibrillation with rapid ventricular rate. Remains on IV heparin. Patient underwent cardiac catheterization yesterday with findings of normal coronaries, there is elevated left sided filling pressures. LV EF 35% with mild anterior and mild inferior hypokinesis with preservation of the apex and base may be related to myocarditis versus atypical takutsubo. Patient remains on IV lasix 40 mg Q12 hour. Chest xray today reveals persistent CHF fluid overload state. Possible underlying right lower lobe pneumonic infiltrate. 01/17/2025 Patient is evaluated in follow-up in the intensive care unit. Patient continues on IV heparin, IV amiodarone has been discontinued. Heart rate remains elevated in the 120s. Patient remains in atrial fibrillation. Patient continues on IV lasix 40 mg Q12 hour. Patient has had significat urine output over the last 24 hours. Education provided however patient does need alot of reinforcement. Discussed smoking cessation. White blood cell count today 13.4, sodium 134, BUN 10, creatinine 0.56. 01/18/2025 Patient is seen in follow-up in the ICU although is a downgrade once a bed is available. Patient was continued on IV amiodarone which has been transitioned to oral amiodarone along with Eliquis and will be continued on IV Lasix. Patient reports to feeling improved and is asking to go home. at the bedside with questions and concerns that were answered to the best of our ability. Patient is afebrile and continued on 2 L via nasal cannula. Patient does not wear oxygen outpatient. Recommend sitting up in the chair more kalpesh quently and may need PT/OT therapy evaluation as patient appears significantly weak. REVIEW OF SYSTEMS: CONSTITUTIONAL: No fever, no malaise, reports of fatigue. HEENT: No recent visual problems or hearing problems. Denied any sore throat. CARDIOVASCULAR: No chest pain, orthopnea, PND, no palpitations, no syncope. PULMONARY: Reports shortness of breath, no cough, no hemoptysis. GASTROINTESTINAL: No diarrhea, no nausea, no vomiting, no abdominal pain. NEUROLOGICAL: No headaches, no weakness, no numbness. PHYSICAL EXAMINATION: GENERAL: The patient is alert and oriented x3, sleeping although easily arousable, not in any acute distress. Well developed, well nourished. on 3L of oxygen via nasal cannula HEENT: Pupils are round and equally reacting to light. EOMI. No scleral icterus. No conjunctival pallor. Normocephalic, atraumatic. No pharyngeal erythema. No thyromegaly. CARDIOVASCULAR: S1 and S2 muffled, irregular. PULMONARY: Faint scattered wheezing along with coarse rhonchi noted. ABDOMEN: Soft, nontender, nondistended, normoactive bowel sounds. No palpable organomegaly. MUSCULOSKELETAL: No joint swelling or deformity. EXTREMITIES: No cyanosis, clubbing, or pedal edema. NEUROLOGICAL: Gross neurological examination did not reveal any focal deficits. Diffusely weak SKIN: No rashes. Assessment: Acute hypoxemic respiratory failure secondary to acute congestive heart failure New onset cardiomyopathy ischemic vs. nonischemic; with an ejection fraction found to be 30 to 35% Episode x2 of polymorphic vtach with QT prolongation; has been transition from IV amiodarone to oral New onset paroxysmal atrial fibrillation, currently rate controlled moderate pulmonary hypertension, moderate to severe mitral regurgitation Troponin elevation from NSTEMI Tachycardia and hypertension with urgency responded to nitroglycerin History of hypertension History of COPD with mild acute exacerbation History of asthma Gastroesophageal reflux disease History of anxiety Chronic and ongoing nicotine use patient is a 1 pack per day smoker transaminitis likely due to volume overload state GI prophylaxis DVT prophylaxis Full code Plan: Nitroglycerin has been discontinued IV amiodarone discontinued and has transition to oral amiodarone and will continue taper per cardiology. Continue Eliquis Continue IV lasix 40 mg Q12 hour and strict intake and output monitoring Pulmonary along with cardiology following and patient will transfer out of the ICU once a bed is available today. QT prolongation medications have been discontinued ESR normal and mild elevation of CRP. Procalcitonin level normal 0.07 Monitor electrolytes and renal function and will follow-up on repeat labs Encouraged increase activity as tolerated including sitting up in the chair more frequently. If patient continues to be weak, may consult PT/OT therapy The impression and plan of care has been dictated by Destiny Russell, Nurse Practitioner as directed. Dr. Pascual MD I have performed a history and physical examination and medical decision making of this patient, discussed the same with the dictator, and agree with the dictators assessment and plan as written, documented as a scribe. Based on total visit time, I have performed more than 50% of this visit. Objective - Vital Signs Vital signs: Vital Signs Temp 98.2 F 01/18/25 04:00 Pulse 67 01/18/25 04:00 Resp 16 01/18/25 04:00 BP 133/79 01/18/25 04:00 Pulse Ox 94 L 01/18/25 04:00 FiO2 35 01/14/25 14:30 Intake & Output 01/17/25 01/18/25 01/18/25 18:59 06:59 18:59 Intake Total 973.217 Output Total 1675 800 Balance -701.783 -800 Weight 71 kg Intake: IV 200 Sodium Chloride 0.9% 1, 200 000 ml @ 20 mls/hr IV . Q24H LAN Rx#:[id number] Intake, IV Titration 53.217 Amount Heparin Sod,Pork in 0.45% 53.217 NaCl 25,000 unit In 0.45 % NaCl 1 250ml.bag @ 12 UNITS/KG/HR 8.772 mls/hr IV .Q24H LAN Rx#: [id number] Oral 720 Output: Urine 1675 800 Other: Voiding Method External Catheter External Catheter # Voids 1 - Labs CBC & Chem 7: 01/18/25 05:13 01/18/25 05:13 Labs: Abnormal Lab Results - Last 24 Hours (Table) 01/17/25 01/18/25 01/18/25 Range/Units 12:42 05:13 05:13 Hct 46.7 H (34.0-46.0) % MCV 117.7 H (80.0-100.0) fL MCH 36.1 H (25.0-35.0) pg MCHC 30.7 L (31.0-37.0) g/dL RDW 17.2 H (11.5-15.5) % Macrocytosis Marked A APTT 44.0 H (22.0-30.0) sec Sodium 135 L (137-145) mmol/L Chloride 94 L (98-107) mmol/L Carbon Dioxide 37 H (22-30) mmol/L Microbiology - Last 24 Hours (Table) 01/14/25 06:20 Blood Culture - Preliminary Blood
[2025-01-19 08:20] LABS: Anisocytosis Slight; Basophils % (A) 0 %; Eosinophils # (A) 0.2 k/uL (0-0.7); Eosinophils % (A) 2 %; HCT 49.7 % (34.0-46.0); Hypochromasia Slight; Lymphocytes # (A) 1.5 k/uL (1.0-4.8); Lymphocytes % (A) 17 %; MCH 35.6 pg (25.0-35.0); MCHC 30.1 g/dL (31.0-37.0); MCV 118.4 fL (80.0-100.0); Macrocytosis Marked; Monocytes # (A) 0.9 k/uL (0-1.0); Monocytes % (A) 9 %; Neutrophils # (A) 6.4 k/uL (1.3-7.7); Neutrophils % (A) 69 %; Platelet Count 285 k/uL (150-450); WBC 9.2 k/uL (3.8-10.6)
[2025-01-19 08:29] LABS: ALT 46 U/L (4-34); AST 55 U/L (14-36); African American GFR (CKD) >90 (>60 ml/min/1.73 sqM); Albumin 3.6 g/dL (3.5-5.0); Alkaline Phosphatase 173 U/L (38-126); Anion Gap 8 mmol/L; Blood Urea Nitrogen 18 mg/dL (7-17); Calcium 9.3 mg/dL (8.4-10.2); Carbon Dioxide 34 mmol/L (22-30); Chloride 94 mmol/L (98-107); Glucose 91 mg/dL (74-99); Non-African American GFR(CKD) 89 (>60 ml/min/1.73 sqM); Potassium 4.3 mmol/L (3.5-5.1); Sodium 136 mmol/L (137-145); Total Protein 6.4 g/dL (6.3-8.2)
--- NOTE | 2025-01-19 13:58 | P.PN ---
Subjective Progress Note Date: 01/19/25 HISTORY OF PRESENTING ILLNESS This is a pleasant 64-year-old with past medical history significant for tobacco abuse, occasional alcohol use, COPD. She does not follow with a curriculum consultant. She states her has been having some recent fever, chills and cough and she developed a cough over the last 2 days with increasing shortness of breath. She has been having mild chest heaviness with some of these episodes. She has been feeling somewhat more anxious at times with the shortness of breath. She denies any actual fevers or chills. She presented to the emergency department and was having some increasing blood pressure and became tachycardic and therefore nitroglycerin was started. Blood test mildly abnormal with troponin 0.06. She was placed on oxygen. She had episode of polymorphic VT and patient does not recall this episode however apparently was unresponsive and received approximately 10 chest compressions and then came to. She has been having occasional nonsustained VT on telemetry. She was placed on amiodarone drip. Echocardiogram was performed which showed EF 30 to 35% with moderate to severe mitral regurgitation. She denies any significant lower extremity edema. She does smoke a pack per day, occasional alcohol use on the weekends and family history of CAD as well as heart failure, permanent pacemaker. 01/16 Patient seen and examined. Patient had another episode of polymorphic ventricular tachycardia for 24 beats which resolved on its own. Patient has been in atrial fibrillation since that time with heart rates in the 120s to 140s. Systolic blood pressure variable in the upper 70s to 90s. Denies any chest pain or pressure. Still mildly short of breath. She cannot really feel any of the A-fib. She was placed on metoprolol yesterday and tolerating. 01/17 Patient seen and examined. Inflammatory markers resulted with ESR 10 and a CRP of 3.5 and symptoms not entirely consistent with myocarditis. Family admits there has been increasing stress recently. There is no sudden cardiac in her family and no history herself of any syncope. Remains in A-fib with heart rates in the 120s. She remains on amiodarone drip at 0.5. No chest pain or pressure. Being diuresed with IV Lasix twice a day. 01/19 Patient seen and examined on the cardiac stepdown unit. Patient has been transferred out of the intensive care unit. Patient states that she wants to go home. She is on oxygen but states she does not have it at home. Regarding atrial fibrillation, patient converted to sinus rhythm yesterday around 4 PM. Patient has had no more episodes of ventricular tachycardia. Dr. Mirza discussed with patient the possible need for LifeVest with the patient as well as possible need for EP study or even ICD down the road. Patient is maintained on Eliquis, amiodarone and Lopressor. Patient is also on Lasix 40 mg every 12 hours. Blood pressure 109/66, heart rate 72, pulse ox 91% on 3 L nasal cannula. Repeat blood work reveals hemoglobin 15. Sodium 136, BUN 18 creatinine 0.73. AST 55, ALT 46, alkaline phosphatase 176. PHYSICAL EXAMINATION Vital signs reviewed. CONSTITUTIONAL: No apparent distress. HEENT: Head is normocephalic. Pupils are equal, round. Sclerae anicteric. No JVD. No carotid bruit. CHEST EXAMINATION: Lungs are clear to auscultation. No chest wall tenderness is noted on palpation or with deep breathing. HEART EXAMINATION: Irregular rate and rhythm. S1, S2 heard. No murmurs, gallops or rub. ABDOMEN: Soft, nontender. Positive bowel sounds. EXTREMITIES: 2+ peripheral pulses, no lower extremity edema and no calf tenderness. NEUROLOGIC EXAMINATION: Patient is awake, alert and oriented x3. ASSESSMENT Polymorphic VT with brief chest compressions Non-STEMI Cardiomyopathy unclear ischemic versus nonischemic Moderate to severe mitral regurgitation Recent cough, shortness of breath questionable component of infectious etiology Paroxysmal atrial fibrillation, new onset Wall motion abnormalities with mid anterior and mid inferior hypokinesis. May be Takotsubo's variant versus myocarditis Shock, may be component of cardiogenic plus or minus sepsis QT prolongation Acute on chronic systolic heart failure PLAN: Wall motion abnormalities which may be consistent with Takotsubo's versus myocarditis. Some of her electrical instability may be related to myocarditis/Takotsubo's however continue with beta-erasto and amiodarone. Continue oral amiodarone, metoprolol 25 mg twice daily, Eliquis. Obtain repeat EKG Possible need for LifeVest Possible discharge home tomorrow Nurse practitioner note has been reviewed, I agree with documented findings and plan of care. Patient was seen and examined. Objective - Vital Signs Vital signs: Vital Signs Temp 97.9 F 01/19/25 09:15 Pulse 72 01/19/25 09:15 Resp 18 01/19/25 09:15 BP 109/66 01/19/25 09:15 Pulse Ox 91 L 01/19/25 09:15 FiO2 35 01/14/25 14:30 Intake & Output 01/18/25 01/19/25 01/19/25 18:59 06:59 18:59 Output Total 240 Balance -240 Weight 71 kg Output: Urine 240 Other: Voiding Method External Catheter External Catheter External Catheter # Voids 1 - Labs CBC & Chem 7: 01/19/25 07:29 01/19/25 07:29 Labs: Abnormal Lab Results - Last 24 Hours (Table) 01/18/25 01/19/25 01/19/25 Range/Units 20:01 07:29 07:29 Hct 49.7 H (34.0-46.0) % MCV 118.4 H (80.0-100.0) fL MCH 35.6 H (25.0-35.0) pg MCHC 30.1 L (31.0-37.0) g/dL RDW 17.0 H (11.5-15.5) % Macrocytosis Marked A Sodium 136 L (137-145) mmol/L Chloride 94 L (98-107) mmol/L Carbon Dioxide 34 H (22-30) mmol/L BUN 18 H (7-17) mg/dL POC Glucose (mg/dL) 124 H (70-110) mg/dL AST 55 H (14-36) U/L ALT 46 H (4-34) U/L Alkaline Phosphatase 173 H (38-126) U/L
--- NOTE | 2025-01-20 03:48 | P.PN ---
Subjective Progress Note Date: 01/19/25 This is a 64-year-old female medical history significant for asthma, COPD, acid reflux, anxiety, chronic nicotine use. Patient has been to the hospital with complaints of shortness of breath over the last 24 hours states that she is unable to catch her breath. Patient is evaluated in the ER currently on BiPAP. she is currently denying any chest discomfort states that she has not been having any fever or chills denies any nausea vomiting or diarrhea. Patient does admit to smoking 1 pack of cigarettes per day for the last 40 years. Occasional alcohol use. On admission white blood cell count is 10.1, hemoglobin of 13.1, sodium 138, BUN is 9 creatinine 0.58 glucose of 126, AST 87, ALT of 53 alk phos of 240. Her troponin level was initially found to be negative at 0.020, with mildly elevated proBNP of 2600. Patient's viral panel was negative for influenza, RSV, COVID. Chest x-ray completed in the ER reveals bilateral pleural effusions with adjacent atelectasis and pneumonia not excluded. There is hyperinflation of the lungs. Patient admitted to the hospital with a consult placed to pulmonology for the acute COPD exacerbation. She is currently on BiPAP settings of 14/5 with 50% FiO2 during my evaluation. 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 Patient has not admit to history of COPD however is on a combination inhaler on an outpatient basis. Patient reports no prior history of congestive heart failure does not history of high blood pressure. Her echocardiogram comes back revealing ejection fraction of 40 to 45% with moderate pulmonary hypertension. Akinetic septum. Moderate to severe mitral regurgitation and moderate aortic regurgitation. Because of these findings cardiology was consulted due to the new cardiomyopathy. Patient appears to be volume overload state was started on IV Lasix 40 mg every 12 hours while in the ER. She also was started on a nitroglycerin drip after receiving nitroglycerin as a bolus by the ER physician secondary to dyspnea hypertension diaphoresis and tachycardia. She appears to be resting comfortably at the time of my evaluation. Is currently pending a bed on the medical floor. 01/15/2025 Is evaluated today in the intensive care unit. While in the ER yesterday pending a bed on the medical floor patient had an episode of V-fib requiring CPR and was given amiodarone bolus has been started on IV amiodarone running at half rate now. Patient is currently in normal sinus rhythm controlled heart rate. She continues on 40 mg of IV Lasix every 12 hours. Patient will be going for a cardiac catheterization. She states that her breathing is significantly improved as compared to yesterday. Station weight blood cell count of 10.6, hemoglobin 12.0, sodium of 137, potassium 3.4, BUN of 8 creatinine of 0.51, felt troponin level is 0.049. Her LFTs are slightly improved at AST 53 ALT 44 alk phos 174. 01/16/2025 Patient is evaluated today in follow up in the intensive care unit. Continues on IV amiodarone. Currently in atrial fibrillation with rapid ventricular rate. Remains on IV heparin. Patient underwent cardiac catheterization yesterday with findings of normal coronaries, there is elevated left sided filling pressures. LV EF 35% with mild anterior and mild inferior hypokinesis with preservation of the apex and base may be related to myocarditis versus atypical takutsubo. Patient remains on IV lasix 40 mg Q12 hour. Chest xray today reveals persistent CHF fluid overload state. Possible underlying right lower lobe pneumonic infiltrate. 01/17/2025 Patient is evaluated in follow-up in the intensive care unit. Patient continues on IV heparin, IV amiodarone has been discontinued. Heart rate remains elevated in the 120s. Patient remains in atrial fibrillation. Patient continues on IV lasix 40 mg Q12 hour. Patient has had significat urine output over the last 24 hours. Education provided however patient does need alot of reinforcement. Discussed smoking cessation. White blood cell count today 13.4, sodium 134, BUN 10, creatinine 0.56. 01/18/2025 Patient is seen in follow-up in the ICU although is a downgrade once a bed is available. Patient was continued on IV amiodarone which has been transitioned to oral amiodarone along with Eliquis and will be continued on IV Lasix. Patient reports to feeling improved and is asking to go home. at the bedside with questions and concerns that were answered to the best of our ability. Patient is afebrile and continued on 2 L via nasal cannula. Patient does not wear oxygen outpatient. Recommend sitting up in the chair more kalpesh quently and may need PT/OT therapy evaluation as patient appears significantly weak. 01/19/2025 Patient is seen in follow-up today with no acute overnight issues noted. Patient continues on 2 to 3 L via nasal cannula and reports does not wear oxygen outpatient. Pulmonary and cardiology following and discussing possible need for LifeVest. Will discuss with case management in the a.m. if t his is required on discharge. Patient will also most likely need home O2 evaluation prior to discharge as patient was noted to drop below 88% on room air with minimal exertion. Will discuss with case management regarding discharge planning for home O2 as well. Patient is extremely anxious to go home and reports was cleared by other consultations. Stressed the importance of complete tobacco cessation especially if wearing oxygen in the home as it is highly flammable. REVIEW OF SYSTEMS: CONSTITUTIONAL: No fever, no malaise, no further reports of fatigue. HEENT: No recent visual problems or hearing problems. Denied any sore throat. CARDIOVASCULAR: No chest pain, orthopnea, PND, no palpitations, no syncope. PULMONARY: Reports shortness of breath, no cough, no hemoptysis. GASTROINTESTINAL: No diarrhea, no nausea, no vomiting, no abdominal pain. NEUROLOGICAL: No headaches, no weakness, no numbness. PHYSICAL EXAMINATION: GENERAL: The patient is alert and oriented x3, not in any acute distress. Well developed, well nourished. on 3L of oxygen via nasal cannula HEENT: Pupils are round and equally reacting to light. EOMI. No scleral icterus. No conjunctival pallor. Normocephalic, atraumatic. No pharyngeal erythema. No thyromegaly. CARDIOVASCULAR: S1 and S2 muffled, irregular. PULMONARY: Faint scattered wheezing along with coarse rhonchi noted. ABDOMEN: Soft, nontender, nondistended, normoactive bowel sounds. No palpable organomegaly. MUSCULOSKELETAL: No joint swelling or deformity. EXTREMITIES: No cyanosis, clubbing, or pedal edema. NEUROLOGICAL: Gross neurological examination did not reveal any focal deficits. Diffusely weak SKIN: No rashes. Assessment: Acute hypoxemic respiratory failure secondary to acute congestive heart failure New onset cardiomyopathy ischemic vs. nonischemic; with an ejection fraction found to be 30 to 35% Episode x2 of polymorphic vtach with QT prolongation; has been transition from IV amiodarone to oral New onset paroxysmal atrial fibrillation, currently rate controlled moderate pulmonary hypertension, moderate to severe mitral regurgitation Troponin elevation from NSTEMI Tachycardia and hypertension with urgency responded to nitroglycerin History of hypertension History of COPD with mild acute exacerbation History of asthma Gastroesophageal reflux disease History of anxiety Chronic and ongoing nicotine use patient is a 1 pack per day smoker transaminitis likely due to volume overload state GI prophylaxis DVT prophylaxis Full code Plan: Cardiology and pulmonary following and patient has been transition to oral amiodarone and will continue on Eliquis. Patient continues on IV Lasix twice daily and will discuss with cardiology regarding discharge planning and continuing Lasix while at home. Cardiology discussing the possible need for LifeVest on discharge Patient continues on 2 to 3 L via nasal cannula and does not normally wear oxygen at home. Will discuss with case management and undergo home O2 asse ssment as patient will likely require oxygen on discharge. Lengthy discussion was had about safety and continuing nicotine abuse while using oxygen as it is highly flammable. QT prolongation medications have been discontinued ESR normal and mild elevation of CRP. Procalcitonin level normal 0.07 Monitor electrolytes and renal function Encouraged increase activity as tolerated including sitting up in the chair more frequently. Patient extremely anxious and wants to go home. Will discuss with other consultations regarding discharge planning. There was discussion of possible LifeVest on discharge and also the requirements of oxygen. Will follow-up with case management on Monday. Possible discharge planning in the next 24 hours The impression and plan of care has been dictated by Destiny Russell, Nurse Practitioner as directed. Dr. Pascual MD I have performed a history and physical examination and medical decision making of this patient, discussed the same with the dictator, and agree with the dictators assessment and plan as written, documented as a scribe. Based on total visit time, I have performed more than 50% of this visit. Objective - Vital Signs Vital signs: Vital Signs Temp 98.2 F 01/18/25 20:14 Pulse 83 01/19/25 04:20 Resp 18 01/19/25 04:20 BP 109/64 01/19/25 04:20 Pulse Ox 96 01/19/25 04:20 FiO2 35 01/14/25 14:30 Intake & Output 01/18/25 01/19/25 01/19/25 18:59 06:59 18:59 Output Total 240 Balance -240 Weight 71 kg Output: Urine 240 Other: Voiding Method External Catheter External Catheter # Voids 1 - Labs CBC & Chem 7: 01/19/25 07:29 01/19/25 07:29 Labs: Abnormal Lab Results - Last 24 Hours (Table) 01/18/25 01/19/25 01/19/25 Range/Units 20:01 07:29 07:29 Hct 49.7 H (34.0-46.0) % MCV 118.4 H (80.0-100.0) fL MCH 35.6 H (25.0-35.0) pg MCHC 30.1 L (31.0-37.0) g/dL RDW 17.0 H (11.5-15.5) % Macrocytosis Marked A Sodium 136 L (137-145) mmol/L Chloride 94 L (98-107) mmol/L Carbon Dioxide 34 H (22-30) mmol/L BUN 18 H (7-17) mg/dL POC Glucose (mg/dL) 124 H (70-110) mg/dL AST 55 H (14-36) U/L ALT 46 H (4-34) U/L Alkaline Phosphatase 173 H (38-126) U/L
--- NOTE | 2025-01-20 13:33 | P.PN ---
Subjective HISTORY OF PRESENT ILLNESS: This is a pleasant 64-year-old with past medical history significant for tobacco abuse, occasional alcohol use, COPD. 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 She states her has been having some recent fever, chills and cough and she developed a cough over the last 2 days with increasing shortness of breath. She has been having mild chest heaviness with some of these episodes. She has been feeling somewhat more anxious at times with the shortness of breath. She denies any actual fevers or chills. She presented to the emergency department and was having some increasing blood pressure and became tachycardic and therefore nitroglycerin was started. Blood test mildly abnormal with troponin 0.06. She was placed on oxygen. She had episode of polymorphic VT and patient does not recall this episode however apparently was unresponsive and received approximately 10 chest compressions and then came to. She has been having occasional nonsustained VT on telemetry. She was placed on amiodarone drip. Echocardiogram was performed which showed EF 30 to 35% with moderate to severe mitral regurgitation. She denies any significant lower extremity edema. She does smoke a pack per day, occasional alcohol use on the weekends and family history of CAD as well as heart failure, permanent pacemaker. 01/16 Patient seen and examined. Patient had another episode of polymorphic ventricular tachycardia for 24 beats which resolved on its own. Patient has been in atrial fibrillation since that time with heart rates in the 120s to 140s. Systolic blood pressure variable in the upper 70s to 90s. Denies any chest pain or pressure. Still mildly short of breath. She cannot really feel any of the A-fib. She was placed on metoprolol yesterday and tolerating. 01/17 Patient seen and examined. Inflammatory markers resulted with ESR 10 and a CRP of 3.5 and symptoms not entirely consistent with myocarditis. Family admits there has been increasing stress recently. There is no sudden cardiac in her family and no history herself of any syncope. Remains in A-fib with heart rates in the 120s. She remains on amiodarone drip at 0.5. No chest pain or pressure. Being diuresed with IV Lasix twice a day. 01/19 Patient seen and examined on the cardiac stepdown unit. Patient has been transferred out of the intensive care unit. Patient states that she wants to go home. She is on oxygen but states she does not have it at home. Regarding atrial fibrillation, patient converted to sinus rhythm yesterday around 4 PM. Patient has had no more episodes of ventricular tachycardia. Dr. Mirza discussed with patient the possible need for LifeVest with the patient as well as possible need for EP study or even ICD down the road. Patient is maintained on Eliquis, amiodarone and Lopressor. Patient is also on Lasix 40 mg every 12 hours. Blood pressure 109/66, heart rate 72, pulse ox 91% on 3 L nasal cannula. Repeat blood work reveals hemoglobin 15. Sodium 136, BUN 18 creatinine 0.73. AST 55, ALT 46, alkaline phosphatase 176. 01/20/2025 Patient examined this morning to bedside. Patient currently denies chest pain or pressure. She denies shortness of breath. Vital signs are stable. Telemetry reveals atrial fibrillation with controlled ventricular rate. Vital signs are stable. PHYSICAL EXAM: VITAL SIGNS: Reviewed. GENERAL: Well-developed in no acute distress. NECK: Supple. No JVD or thyromegaly LUNGS: Respirations even and unlabored. Lungs essentially clear to auscultation bilaterally. HEART: Regular rate and rhythm. S1 and S2 heard. EXTREMITIES: Normal range of motion. No clubbing or cyanosis. Peripheral pulses intact. No lower extremity edema ASSESSMENT: Polymorphic VT with brief chest compressions Non-STEMI status post cardiac catheterization revealing normal coronary arteries Cardiomyopathy, 30 to 35% nonischemic, Takotsubo versus myocarditis Moderate to severe mitral regurgitation Paroxysmal atrial fibrillation, new onset Shock, may be component of cardiogenic plus or minus sepsis QT prolongation Acute on chronic systolic heart failure PLAN: Decrease amiodarone to 200 mg daily Continue additional cardiac medications including Eliquis and metoprolol Add Farxiga 10 mg daily starting tomorrow Continue telemetry monitoring Recommend LifeVest at the time of discharge to prevent sudden cardiac secondary to cardiomyopathy and polymorphic VT on admission Further recommendations pending patient course Nurse practitioner note has been reviewed by physician. Signing provider agrees with the documented findings, assessment, and plan of care documented by DATA ASSISTANT as a scribe. Objective - Vital Signs Vital signs: Vital Signs Temp 98.1 F 01/19/25 20:00 Pulse 117 H 01/20/25 08:40 Resp 16 01/20/25 08:40 BP 92/62 01/20/25 08:40 Pulse Ox 95 01/20/25 08:40 FiO2 35 01/14/25 14:30 Intake & Output 01/19/25 01/20/25 01/20/25 18:59 06:59 18:59 Intake Total 236 Output Total 500 600 Balance -264 -600 Weight 69.5 kg Intake: Oral 236 Output: Urine 500 600 Other: Voiding Method External Catheter External Catheter External Catheter - Labs CBC & Chem 7: 01/19/25 07:29 01/19/25 07:29 Labs: Microbiology - Last 24 Hours (Table) 01/14/25 06:20 Blood Culture - Final Blood
--- NOTE | 2025-01-20 20:00 | P.PN ---
Subjective Progress Note Date: 01/20/25 This is a 64-year-old female medical history significant for asthma, COPD, acid reflux, anxiety, chronic nicotine use. Patient has been to the hospital with complaints of shortness of breath over the last 24 hours states that she is unable to catch her breath. Patient is evaluated in the ER currently on BiPAP. she is currently denying any chest discomfort states that she has not been having any fever or chills denies any nausea vomiting or diarrhea. Patient does admit to smoking 1 pack of cigarettes per day for the last 40 years. Occasional alcohol use. On admission white blood cell count is 10.1, hemoglobin of 13.1, sodium 138, BUN is 9 creatinine 0.58 glucose of 126, AST 87, ALT of 53 alk phos of 240. Her troponin level was initially found to be negative at 0.020, with mildly elevated proBNP of 2600. Patient's viral panel was negative for influenza, RSV, COVID. Chest x-ray completed in the ER reveals bilateral pleural effusions with adjacent atelectasis and pneumonia not excluded. There is hyperinflation of the lungs. Patient admitted to the hospital with a consult placed to pulmonology for the acute COPD exacerbation. She is currently on BiPAP settings of 14/5 with 50% FiO2 during my evaluation. 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 Patient has not admit to history of COPD however is on a combination inhaler on an outpatient basis. Patient reports no prior history of congestive heart failure does not history of high blood pressure. Her echocardiogram comes back revealing ejection fraction of 40 to 45% with moderate pulmonary hypertension. Akinetic septum. Moderate to severe mitral regurgitation and moderate aortic regurgitation. Because of these findings cardiology was consulted due to the new cardiomyopathy. Patient appears to be volume overload state was started on IV Lasix 40 mg every 12 hours while in the ER. She also was started on a nitroglycerin drip after receiving nitroglycerin as a bolus by the ER physician secondary to dyspnea hypertension diaphoresis and tachycardia. She appears to be resting comfortably at the time of my evaluation. Is currently pending a bed on the medical floor. 01/15/2025 Is evaluated today in the intensive care unit. While in the ER yesterday pending a bed on the medical floor patient had an episode of V-fib requiring CPR and was given amiodarone bolus has been started on IV amiodarone running at half rate now. Patient is currently in normal sinus rhythm controlled heart rate. She continues on 40 mg of IV Lasix every 12 hours. Patient will be going for a cardiac catheterization. She states that her breathing is significantly improved as compared to yesterday. Station weight blood cell count of 10.6, hemoglobin 12.0, sodium of 137, potassium 3.4, BUN of 8 creatinine of 0.51, felt troponin level is 0.049. Her LFTs are slightly improved at AST 53 ALT 44 alk phos 174. 01/16/2025 Patient is evaluated today in follow up in the intensive care unit. Continues on IV amiodarone. Currently in atrial fibrillation with rapid ventricular rate. Remains on IV heparin. Patient underwent cardiac catheterization yesterday with findings of normal coronaries, there is elevated left sided filling pressures. LV EF 35% with mild anterior and mild inferior hypokinesis with preservation of the apex and base may be related to myocarditis versus atypical takutsubo. Patient remains on IV lasix 40 mg Q12 hour. Chest xray today reveals persistent CHF fluid overload state. Possible underlying right lower lobe pneumonic infiltrate. 01/17/2025 Patient is evaluated in follow-up in the intensive care unit. Patient continues on IV heparin, IV amiodarone has been discontinued. Heart rate remains elevated in the 120s. Patient remains in atrial fibrillation. Patient continues on IV lasix 40 mg Q12 hour. Patient has had significat urine output over the last 24 hours. Education provided however patient does need alot of reinforcement. Discussed smoking cessation. White blood cell count today 13.4, sodium 134, BUN 10, creatinine 0.56. 01/18/2025 Patient is seen in follow-up in the ICU although is a downgrade once a bed is available. Patient was continued on IV amiodarone which has been transitioned to oral amiodarone along with Eliquis and will be continued on IV Lasix. Patient reports to feeling improved and is asking to go home. at the bedside with questions and concerns that were answered to the best of our ability. Patient is afebrile and continued on 2 L via nasal cannula. Patient does not wear oxygen outpatient. Recommend sitting up in the chair more frequ ently and may need PT/OT therapy evaluation as patient appears significantly weak. 01/19/2025 Patient is seen in follow-up today with no acute overnight issues noted. Patient continues on 2 to 3 L via nasal cannula and reports does not wear oxygen outpatient. Pulmonary and cardiology following and discussing possible need for LifeVest. Will discuss with case management in the a.m. if this is required on discharge. Patient will also most likely need home O2 evaluation prior to discharge as patient was noted to drop below 88% on room air with minimal exertion. Will discuss with case management regarding discharge planning for home O2 as well. Patient is extremely anxious to go home and reports was cleared by other consultations. Stressed the importance of complete tobacco cessation especially if wearing oxygen in the home as it is highly flammable. 01/20/2025 Patient evaluated today sitting up in the bed, at the bedside. Discussed home oxygen and reinforced that there can be no smoking in the house. Patient understanding of this. EF 30-35% and patient is pending lifevest which will be tomorrow. Lsix has been discontinued. Blood pressure marginal 83/54. Patient remains on oxygen via nasal cannula at 3L. REVIEW OF SYSTEMS: CONSTITUTIONAL: No fever, no malaise, no further reports of fatigue. HEENT: No recent visual problems or hearing problems. Denied any sore throat. CARDIOVASCULAR: No chest pain, orthopnea, PND, no palpitations, no syncope. PULMONARY: Reports shortness of breath, no cough, no hemoptysis. GASTROINTESTINAL: No diarrhea, no nausea, no vomiting, no abdominal pain. NEUROLOGICAL: No headaches, no weakness, no numbness. PHYSICAL EXAMINATION: GENERAL: The patient is alert and oriented x3, not in any acute distress. Well developed, well nourished. on 3L of oxygen via nasal cannula HEENT: Pupils are round and equally reacting to light. EOMI. No scleral icterus. No conjunctival pallor. Normocephalic, atraumatic. No pharyngeal erythema. No thyromegaly. CARDIOVASCULAR: S1 and S2 muffled, irregular. PULMONARY: Faint scattered wheezing along with coarse rhonchi noted. ABDOMEN: Soft, nontender, nondistended, normoactive bowel sounds. No palpable organomegaly. MUSCULOSKELETAL: No joint swelling or deformity. EXTREMITIES: No cyanosis, clubbing, or pedal edema. NEUROLOGICAL: Gross neurological examination did not reveal any focal deficits. Diffusely weak SKIN: No rashes. Assessment: Acute hypoxemic respiratory failure secondary to acute congestive heart failure New onset cardiomyopathy ischemic vs. nonischemic; with an ejection fraction found to be 30 to 35% Episode x2 of polymorphic vtach with QT prolongation; has been transition from IV amiodarone to oral New onset paroxysmal atrial fibrillation, currently rate controlled moderate pulmonary hypertension, moderate to severe mitral regurgitation Troponin elevation from NSTEMI Tachycardia and hypertension with urgency responded to nitroglycerin History of hypertension History of COPD with mild acute exacerbation History of asthma Gastroesophageal reflux disease History of anxiety Chronic and ongoing nicotine use patient is a 1 pack per day smoker transaminitis likely due to volume overload state GI prophylaxis DVT prophylaxis Full code Plan: Cardiology and pulmonary following and patient has been transition to oral amiodarone and will continue on Eliquis. Patient is on metoprolol. Heart rate remains controlled Lasix has been discontinued Cardiology discussing the possible need for LifeVest on discharge and patient to receive one tomorrow Patient continues on 2 to 3 L via nasal cannula and does not normally wear oxygen at home. Will discuss with case management and undergo home O2 assessment as patient will likely require oxygen on discharge. Lengthy discussion was had about safety and continuing nicotine abuse while using oxygen as it is highly flammable. QT prolongation medications have been discontinued ESR normal and mild elevation of CRP. Procalcitonin level normal 0.07 Monitor electrolytes and renal function Encouraged increase activity as tolerated including sitting up in the chair more frequently. Patient extremely anxious and wants to go home. Will discuss with other consultations regarding discharge planning. There was discussion of possible LifeVest on discharge and also the requirements of oxygen. Possible discharge planning in the next 24 hours The impression and plan of care has been dictated by Kaye Grant Nurse Practitioner as directed. Dr. Pascual MD I have performed a history and physical examination and medical decision making of this patient, discussed the same with the dictator, and agree with the dictators assessment and plan as written, documented as a scribe. Based on total visit time, I have performed more than 50% of this visit. Objective - Vital Signs Vital signs: Vital Signs Temp 98.1 F 01/19/25 20:00 Pulse 76 01/20/25 16:10 Resp 18 01/20/25 16:10 BP 106/70 01/20/25 16:10 Pulse Ox 95 01/20/25 16:10 FiO2 35 01/14/25 14:30 Intake & Output 01/20/25 01/20/25 01/21/25 06:59 18:59 06:59 Output Total 600 Balance -600 Weight 69.5 kg Output: Urine 600 Other: Voiding Method External Catheter External Catheter - Labs CBC & Chem 7: 01/19/25 07:29 01/19/25 07:29 Assessment and Plan Time with Patient: Less than 30
[2025-01-21] MEDS: DAPAGLIFLOZIN PROPANEDIOL 10 MG TABLET PO SCH (07:56)
[2025-01-21] MEDS: AMIODARONE 200 MG TAB PO SCH (07:57)
[2025-01-21 09:35] LABS: ALT 51 U/L (4-34); AST 55 U/L (14-36); African American GFR (CKD) 86 (>60 ml/min/1.73 sqM); Albumin 4.3 g/dL (3.5-5.0); Alkaline Phosphatase 171 U/L (38-126); Anion Gap 11 mmol/L; Blood Urea Nitrogen 22 mg/dL (7-17); Calcium 9.8 mg/dL (8.4-10.2); Carbon Dioxide 34 mmol/L (22-30); Chloride 91 mmol/L (98-107); Glucose 119 mg/dL (74-99); Non-African American GFR(CKD) 75 (>60 ml/min/1.73 sqM); Potassium 4.5 mmol/L (3.5-5.1); Sodium 136 mmol/L (137-145); Total Bilirubin 1.1 mg/dL (0.2-1.3); Total Protein 7.6 g/dL (6.3-8.2)
[2025-01-21 11:43] VITALS: BP 97/62; PULSE 71; RESP 14; TEMP 98
--- NOTE | 2025-01-21 15:02 | P.PN ---
Subjective HISTORY OF PRESENT ILLNESS: This is a pleasant 64-year-old with past medical history significant for tobacco abuse, occasional alcohol use, COPD. 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 She states her has been having some recent fever, chills and cough and she developed a cough over the last 2 days with increasing shortness of breath. She has been having mild chest heaviness with some of these episodes. She has been feeling somewhat more anxious at times with the shortness of breath. She denies any actual fevers or chills. She presented to the emergency department and was having some increasing blood pressure and became tachycardic and therefore nitroglycerin was started. Blood test mildly abnormal with troponin 0.06. She was placed on oxygen. She had episode of polymorphic VT and patient does not recall this episode however apparently was unresponsive and received approximately 10 chest compressions and then came to. She has been having occasional nonsustained VT on telemetry. She was placed on amiodarone drip. Echocardiogram was performed which showed EF 30 to 35% with moderate to severe mitral regurgitation. She denies any significant lower extremity edema. She does smoke a pack per day, occasional alcohol use on the weekends and family history of CAD as well as heart failure, permanent pacemaker. 01/16 Patient seen and examined. Patient had another episode of polymorphic ventricular tachycardia for 24 beats which resolved on its own. Patient has been in atrial fibrillation since that time with heart rates in the 120s to 140s. Systolic blood pressure variable in the upper 70s to 90s. Denies any chest pain or pressure. Still mildly short of breath. She cannot really feel any of the A-fib. She was placed on metoprolol yesterday and tolerating. 01/17 Patient seen and examined. Inflammatory markers resulted with ESR 10 and a CRP of 3.5 and symptoms not entirely consistent with myocarditis. Family admits there has been increasing stress recently. There is no sudden cardiac in her family and no history herself of any syncope. Remains in A-fib with heart rates in the 120s. She remains on amiodarone drip at 0.5. No chest pain or pressure. Being diuresed with IV Lasix twice a day. 01/19 Patient seen and examined on the cardiac stepdown unit. Patient has been transferred out of the intensive care unit. Patient states that she wants to go home. She is on oxygen but states she does not have it at home. Regarding atrial fibrillation, patient converted to sinus rhythm yesterday around 4 PM. Patient has had no more episodes of ventricular tachycardia. Dr. Mirza discussed with patient the possible need for LifeVest with the patient as well as possible need for EP study or even ICD down the road. Patient is maintained on Eliquis, amiodarone and Lopressor. Patient is also on Lasix 40 mg every 12 hours. Blood pressure 109/66, heart rate 72, pulse ox 91% on 3 L nasal cannula. Repeat blood work reveals hemoglobin 15. Sodium 136, BUN 18 creatinine 0.73. AST 55, ALT 46, alkaline phosphatase 176. 01/20/2025 Patient examined this morning to bedside. Patient currently denies chest pain or pressure. She denies shortness of breath. Vital signs are stable. Telemetry reveals atrial fibrillation with controlled ventricular rate. Vital signs are stable. 01/21/2025 Patient examined this morning to bedside. Patient currently denies chest pain or pressure. She denies shortness of breath. Vital signs are stable. Patient did receive LifeVest yesterday. PHYSICAL EXAM: VITAL SIGNS: Reviewed. GENERAL: Well-developed in no acute distress. NECK: Supple. No JVD or thyromegaly LUNGS: Respirations even and unlabored. Lungs essentially clear to auscultation bilaterally. HEART: Regular rate and rhythm. S1 and S2 heard. EXTREMITIES: Normal range of motion. No clubbing or cyanosis. Peripheral pulses intact. No lower extremity edema ASSESSMENT: Polymorphic VT with brief chest compressions Non-STEMI status post cardiac catheterization revealing normal coronary arteries Cardiomyopathy, 30 to 35% nonischemic, Takotsubo versus myocarditis Moderate to severe mitral regurgitation Paroxysmal atrial fibrillation, new onset Shock, may be component of cardiogenic plus or minus sepsis QT prolongation Acute on chronic systolic heart failure PLAN: Patient has received a LifeVest Continue current cardiac medications including amiodarone, Eliquis, Farxiga, metoprolol Patient is stable for discharge from a cardiac standpoint Nurse practitioner note has been reviewed by physician. Signing provider agrees with the documented findings, assessment, and plan of care documented by MECHANIC SOUND TECHNICIAN as a scribe. Objective - Vital Signs Vital signs: Vital Signs Temp 98 F 01/21/25 11:40 Pulse 71 01/21/25 11:40 Resp 14 01/21/25 11:40 BP 97/62 01/21/25 11:40 Pulse Ox 89 L 01/21/25 12:29 FiO2 35 01/14/25 14:30 Intake & Output 01/20/25 01/21/25 01/21/25 18:59 06:59 18:59 Intake Total 180 Balance 180 Weight 69 kg Intake: Oral 180 Other: Voiding Method External Catheter Toilet Toilet - Labs CBC & Chem 7: 01/19/25 07:29 01/21/25 07:51 Labs: Abnormal Lab Results - Last 24 Hours (Table) 01/21/25 Range/Units 07:51 Sodium 136 L (137-145) mmol/L Chloride 91 L (98-107) mmol/L Carbon Dioxide 34 H (22-30) mmol/L BUN 22 H (7-17) mg/dL Glucose 119 H (74-99) mg/dL AST 55 H (14-36) U/L ALT 51 H (4-34) U/L Alkaline Phosphatase 171 H (38-126) U/L
--- NOTE | 2025-01-23 20:09 | P.DS ---
Providers Date of admission: 01/14/25 07:42 Attending physician: Davi Vidal MD Consults: 01/14/25 07:39 Consult Physician Routine Consulting Provider: Vega Godinez Consult Reason/Comments: Dyspnea Do you want consulting provider notified?: Yes 01/14/25 12:24 Consult Physician Routine Consulting Provider: Cm Thompson Consult Reason/Comments: EF 30-35% Do you want consulting provider notified?: Yes Primary care physician: Tejal Devi DO Hospital Course: Final Diagnosis Acute hypoxemic respiratory failure secondary to acute congestive heart failure New onset cardiomyopathy ischemic vs. nonischemic; with an ejection fraction found to be 30 to 35% requiring LifeVest Episode x2 of polymorphic vtach with QT prolongation; has been transition from IV amiodarone to oral New onset paroxysmal atrial fibrillation, currently rate controlled moderate pulmonary hypertension, moderate to severe mitral regurgitation Troponin elevation from NSTEMI Tachycardia and hypertension with urgency responded to nitroglycerin History of hypertension History of COPD with mild acute exacerbation History of asthma Gastroesophageal reflux disease History of anxiety Chronic and ongoing nicotine use patient is a 1 pack per day smoker transaminitis likely due to volume overload state Discharge Disposition Patient stable for discharge home with overall guarded prognosis and will require close follow-up and reinforcement with her family doctor and cardiology. Patient has been discharged on a LifeVest secondary to her new onset cardiomyopathy. Patient will continue on oral amiodarone as well as oral Eliquis on discharge. Patient has been started on Farxiga daily metoprolol twice daily. Lisinopril and amlodipine have been discontinued. Patient to repeat her blood work in 2 to 3 days. Follow-up closely with her rubber cutter and shape carver Dr. Mirza pulmonology Dr. Lazar and her PCP Dr. Tejal Devi. Hospital Course This is a 64-year-old female medical history significant for asthma, COPD, acid reflux, anxiety, chronic nicotine use. Patient has been to the hospital with complaints of shortness of breath over the last 24 hours states that she is unable to catch her breath. Patient is evaluated in the ER currently on BiPAP. she is currently denying any chest discomfort states that she has not been having any fever or chills denies any nausea vomiting or diarrhea. Patient does admit to smoking 1 pack of cigarettes per day for the last 40 years. Occasional alcohol use. On admission white blood cell count is 10.1, hemoglobin of 13.1, sodium 138, BUN is 9 creatinine 0.58 glucose of 126, AST 87, ALT of 53 alk phos of 240. Her troponin level was initially found to be negative at 0.020, with mildly elevated proBNP of 2600. Patient's viral panel was negative for influenza, RSV, COVID. Chest x-ray completed in the ER reveals bilateral pleural effusions with adjacent atelectasis and pneumonia not excluded. There is hyperinflation of the lungs. Patient admitted to the hospital with a consult placed to pulmonology for the acute COPD exacerbation. She is currently on BiPAP settings of 14/5 with 50% FiO2. Her echocardiogram comes back revealing ejection fraction of 40 to 45% with moderate pulmonary hypertension. Akinetic septum. Moderate to severe mitral regurgitation and moderate aortic regurgitation. Because of these findings cardiology was consulted due to the new cardiomyopathy. Patient appears to be volume overload state was started on IV Lasix 40 mg every 12 hours while in the ER. She also was started on a nitroglycerin drip after receiving nitroglycerin as a bolus by the ER physician secondary to dyspnea hypertension diaphoresis and tachycardia. She appears to be resting comfortably at the time of my evaluation. Patient while in the ER had an episode of V-fib requiring CPR was given amiodarone bolus was started on IV amiodarone and she was moved to the intensive care unit. Patient did undergo cardiac catheterization which reveals normal coronaries with elevated left-sided filling pressures. Here ejection fraction is 35% with mild anterior and mild inferior hypokinesis and preservation of the apex and base and may be related to myocarditis versus atypical Takotsubo. She has been continued on IV Lasix. There is concern for possible underlying right lower lobe pneumonic infiltrate. Patient developed a new onset atrial fibrillation while in the intensive care unit she was started on IV heparin and eventually transition to oral amiodarone and oral Eliquis. Her heart rate is now controlled. Patient is a chronic smoker and will require home oxygen on discharge as she is feeling her home oxygen test down to the 70s while ambulating. She was moved out of the intensive care unit to the selective care unit. As her ejection fraction was significantly low patient did require a LifeVest which was provided prior to discharge. Patient received multiple sessions of education regarding total smoking cessation and no smoking while she is wearing the oxygen or around the condenser as both are highly flammable and patient has been both verbalized understanding. Patient will be need follow-up and reinforcement regarding this on discharge with her family doctor. Please see medication reconciliation for a list of current medications. Thank you for allowing us to participate in the care of this patient. The impression and plan of care has been dictated by Kaye Grant Nurse Practitioner as directed. Dr. Pascual MD I have performed a history and physical examination and medical decision making of this patient, discussed the same with the dictator, and agree with the dictators assessment and plan as written, documented as a scribe. Based on total visit time, I have performed more than 50% of this visit. Patient Condition at Discharge: Fair Plan - Discharge Summary Discharge Rx Participant: Yes New Discharge Prescriptions: New Amiodarone [Cordarone] 200 mg PO DAILY #30 tab Apixaban [Eliquis] 5 mg PO BID #60 tab Dapagliflozin Propanediol [Farxiga] 10 mg PO DAILY #30 tab Nicotine 14Mg/24Hr Patch [Habitrol] 1 patch TRANSDERM DAILY #7 patch Metoprolol Tartrate [Lopressor] 25 mg PO BID #60 tab Pantoprazole [Protonix] 40 mg PO DAILY #30 tab Continue Cyanocobalamin [Vitamin B-12] 500 mcg PO DAILY Gabapentin [Neurontin] 300 mg PO TID methocarbamoL [Robaxin-750] 750 mg PO TID PRN PRN Reason: Muscle Spasm Sertraline [Zoloft] 50 mg PO DAILY Glycopyrrolate/Formoterol Fum [Bevespi Aerosphere Inhaler] 2 puff INHALATION RT-BID Albuterol Sulfate [Albuterol Sulfate Hfa] 2 puff INHALATION RT-Q4H PRN PRN Reason: Shortness Of Breath Discontinued lisinopriL [Zestril] 20 mg PO DAILY Gabapentin 300 mg PO amLODIPine [Norvasc] 5 mg PO DAILY Discharge Medication List Albuterol Sulfate [Albuterol Sulfate Hfa] 2 puff INHALATION RT-Q4H PRN 01/14/25 [History] Cyanocobalamin [Vitamin B-12] 500 mcg PO DAILY 01/14/25 [History] Glycopyrrolate/Formoterol Fum [Bevespi Aerosphere Inhaler] 2 puff INHALATION RT-BID 01/14/25 [History] Sertraline [Zoloft] 50 mg PO DAILY 01/14/25 [History] methocarbamoL [Robaxin-750] 750 mg PO TID PRN 01/14/25 [History] Gabapentin [Neurontin] 300 mg PO TID 01/17/25 [History] Amiodarone [Cordarone] 200 mg PO DAILY #30 tab 01/21/25 [Rx] Apixaban [Eliquis] 5 mg PO BID #60 tab 01/21/25 [Rx] Dapagliflozin Propanediol [Farxiga] 10 mg PO DAILY #30 tab 01/21/25 [Rx] Metoprolol Tartrate [Lopressor] 25 mg PO BID #60 tab 01/21/25 [Rx] Nicotine 14Mg/24Hr Patch [Habitrol] 1 patch TRANSDERM DAILY #7 patch 01/21/25 [Rx] Pantoprazole [Protonix] 40 mg PO DAILY #30 tab 01/21/25 [Rx] Follow up Appointment(s)/Referral(s): Vega Godinez MD [STAFF PHYSICIAN] - 1 Week (Charger Tester ) Tejal Devi DO [Primary Care Provider] - 1-2 Days (Patient to make on own time ) Solomon Mirza DO [STAFF PHYSICIAN] - 1 Week (Theater Company Producer ) [facility] [NON-STAFF] - Ambulatory/Diagnostic Orders: Basic Metabolic Panel [LAB.AMB] Location: None Selected Complete Blood Count w/diff [LAB.AMB] Time Frame: 3 Days, Location: None Selected Patient Instructions/Handouts: Heart Failure (GEN), A-fib (Atrial Fibrillation) (DC) Activity/Diet/Wound Care/Special Instructions: Cannot smoking cigarettes in the house with the oxygen condenser. Additionally you cannot smoking cigarettes while wearing oxygen. You need to wear the oxygen 24/ especially when you are up ambulating. Oxygen is highly flammable and you can risk catching fire to yourself and your house if you smoke near the oxygen. Continue the nicotine patch at 14 mg for the next 7 days and follow up with your family doctor in order to continue the taper. Do NOT smoke cigarettes while using a nicotine patch Continue all new medications as prescribed Repeat blood work in 2 to 3 days to monitor electrolytes and kidney function Close follow up with the lung doctor; Dr. Godinez Close follow up with the heart doctor; Dr Mirza See your family doctor this week in the office and bring your discharge paperwork. Wear your lifevest 24/ as recommended except when in the shower. Discharge/Stand Alone Forms: [facility], [facility], Who Do I Call?, Community Resources, Personal Gear Finisher Discharge Disposition: HOME SELF-CARE
== END 2025-01-21 15:52 | disposition home or self-care (01) | DRG 192 ==
LOC: EC 03:30 → SUPCPDRO 03:30 → 3SCARD 07:42 → 2SICU 17:06 → 3SCARD 01-18 14:11
PROVIDERS: ADMIT Internal Medicine; ATTEND Internal Medicine
PROC: 5A09357 Assistance with Respiratory Ventilation, Less than 24 Consecutive Hours, Continuous Positive Airway Pressure (ICD-10-PCS; principal; 2025-01-14)
PROC: 4A023N7 Measurement of Cardiac Sampling and Pressure, Left Heart, Percutaneous Approach (ICD-10-PCS; 2025-01-15)
PROC: B2161ZZ Fluoroscopy of Right and Left Heart using Low Osmolar Contrast (ICD-10-PCS; 2025-01-15)
PROC: B2111ZZ Fluoroscopy of Multiple Coronary Arteries using Low Osmolar Contrast (ICD-10-PCS; 2025-01-15)
PROC: B2151ZZ Fluoroscopy of Left Heart using Low Osmolar Contrast (ICD-10-PCS; 2025-01-15)
DX: I47.21 Torsades de pointes (principal); I27.20 Pulmonary hypertension, unspecified; I42.8 Other cardiomyopathies; I46.9 Cardiac arrest, cause unspecified; J96.01 Acute respiratory failure with hypoxia; Z11.52 Encounter for screening for COVID-19; I47.29 Other ventricular tachycardia; I16.0 Hypertensive urgency; I11.0 Hypertensive heart disease with heart failure; J44.1 Chronic obstructive pulmonary disease with (acute) exacerbation; K21.9 Gastro-esophageal reflux disease without esophagitis; J98.11 Atelectasis; I50.23 Acute on chronic systolic (congestive) heart failure; I49.01 Ventricular fibrillation; F17.210 Nicotine dependence, cigarettes, uncomplicated; F41.9 Anxiety disorder, unspecified; I08.0 Rheumatic disorders of both mitral and aortic valves; R57.0 Cardiogenic shock; I25.10 Atherosclerotic heart disease of native coronary artery without angina pectoris; I48.0 Paroxysmal atrial fibrillation; I25.5 Ischemic cardiomyopathy; I45.81 Long QT syndrome; R74.01 Elevation of levels of liver transaminase levels; Z79.01 Long term (current) use of anticoagulants; Z79.899 Other long term (current) drug therapy; Z82.49 Family history of ischemic heart disease and other diseases of the circulatory system; Z91.013 Allergy to seafood; Z71.6 Tobacco abuse counseling; Z79.84 Long term (current) use of oral hypoglycemic drugs
CPT/HCPCS: 36415; 71045; 80048; 80053; 82272; 82607; 82746; 83605; 83735; 83880; 84132; 84145; 84484; 85025; 85379; 85610; 85652; 85730; 86140; 87040; 87636; 93005; 93306; 93458; 94640; 94660; 96365; 96366; 96368; 96375; 99291